=== PATIENT | female | born 1945 | race Caucasian/White ===

== ENCOUNTER → 2016-10-27 | Outpatient (CLI) | payer MEDICARE, OTHER ==
--- NOTE | 2016-10-27 14:31 | MM ---
Reason for exam: clinical finding. History: Patient is postmenopausal. Physical Findings: Nurse Summary: 2cm nodule in the left breast at 3 o'clock (nurse rodriguez). MG 3D Diag Mammo W/Cad NYASIA Bilateral CC and MLO view(s) were taken. The breast tissue is heterogeneously dense. This may lower the sensitivity of mammography. Nodular asymmetry lateral left breast at a middle depth seen in the upper outer quadrant on the true lateral. Large area of tissue distortion 3 o'clock anterior left breast. Asymmetric density lateral subareolar right breast. This does not persist on MLO or lateral view suggesting an island of prominent tissue. These results were verbally communicated with the patient and result sheet given to the patient on 10/27/16. ASSESSMENT: Incomplete: need additional imaging evaluation, BI-RAD 0 RECOMMENDATION: Ultrasound of both breasts.
--- NOTE | 2016-10-27 14:42 | USB ---
Reason for exam: additional evaluation requested from abnormal screening. History: Patient is postmenopausal. US Breast BILAT Left breast ultrasound includes all four quadrants, the retroareolar region and axilla. Finding demonstrates a 2.3 x 2.0 x 2.7cm oval, solid, vascular lesion at 2 o'clock axilla, there is a large fatty hilum and thin cortex, given that it is enlarged, this can be reassessed at the time of biopsy for any suspicious features, a 1.5 x 1.6 x 1.9cm spiculated, irregular, solid, hypoechoic, vascular , shadowing lesion at 3 o'clock for which a biopsy is recommended, a 0.6 x 0.5 x 0.6cm oval, solid lesion at 2 o'clock for which a biopsy is recommended and a 0.7 x 0.6 x 0.9cm oval, solid node at 2 o'clock. Right breast ultrasound includes all four quadrants, the retroareolar region and axilla. Finding demonstrates no cystic or solid lesion seen. These results were verbally communicated with the patient and result sheet given to the patient on 10/27/16. ASSESSMENT: Highly suggestive of malignancy, BI-RAD 5 RECOMMENDATION: Surgical consultation and ultrasound core biopsy of the left breast. (2 sites-- 2 o'clock and 3 o'clock and also with reassessment of the axillary node at the time of biopsy) Called Dr. Galvan with mammographic findings and has scheduled an appointment for the patient for 11/16/16 at 9:[address] Prado. PRELIMINARY REPORT CALLED AND FAXED TO DR. PRADO ON 10/27/16 AT 300/TP. MTDD
== END | disposition home or self-care (01) ==
LOC: RADMAMWWP 08:46
PROVIDERS: ATTEND Internal Medicine
DX: N63 Unspecified lump in breast (principal); N64.4 Mastodynia
CPT/HCPCS: 76641; G0204; G0279

== ENCOUNTER → 2016-11-03 | Day surgery (SDC) | payer MEDICARE, OTHER ==
[~2016-11-03] MED LIST: ALPRAZolam 0.25 MG TAB ONE; BACITRACIN OINT 1 EACH PACKET TOPICAL ONE; LIDOCAINE 1% INJ 10MG/ML (20 ML MDV) ONE; LIDOCAINE 1%-EPI 1:100,000 20 ML VIAL ONE; SODIUM BICARB 4% 5 ML VIAL (0.48 MEQ/ML) ONE
--- NOTE | 2016-11-04 09:18 | MM ---
Reason for exam: additional evaluation requested from abnormal screening. Last mammogram was performed less than 1 month ago. History: Patient is postmenopausal. MG Diagnostic Mammo LT Wo CAD XCCL and ML view(s) were taken of the left breast. Prior study comparison: October 27, 2016, bilateral MG 3d diag mammo w/cad NYASIA. ASSESSMENT: Post procedure mammogram for marker placement RECOMMENDATION: Ultrasound of the left breast in 6 months. PENDING PATHOLOGY RESULTS.
--- NOTE | 2016-11-09 13:04 | USB ---
US Biopsy Breast Add'l VAD LT Radiologist: Bryant Reza M.D. Radiologis EXAMINATION TYPE: US biopsy breast VAD LT, US biopsy breast add'l VAD LT, US biopsy breast add'l VAD LT, MG 3D diag mammo w/cad NYASIA DATE OF EXAM: 11/03/2016 1:51 PM CLINICAL HISTORY: R92.8 ABN MAMMOGRAM. TECHNIQUE: Ultrasound guided core biopsy of left breast at 3 sites including the left 3:00, 2:00 positions and 1:00 axilla. COMPARISON: NONE FINDINGS: The procedure of ultrasound guided core biopsy was explained to the patient. Benefits, alternatives, and risks were discussed. An informed consent was then obtained. The patient was placed in supine positioning for imaging and for the procedure. The overlying skin was prepped and draped in usual sterile fashion. Lidocaine buffered with bicarbonate was used as anesthetic into the skin and subcutaneous tissue up to areas of concern in the left breast. 2 skin Where made with surgical scalpel. Under ultrasound guidance, a 12-gauge vacuum assisted biopsy gun device was used to obtain 4 core samples from each site. Subsequently a clip was deployed in each lesion and verification mammography demonstrates appropriate deployment. The patient tolerated the procedure well without any immediate complication. The patient was kept in the radiology department for short stay after the procedure and then discharged home in stable condition. IMPRESSION: Successful, uncomplicated 3 site ultrasound core biopsy left breast with pathology results pending. Pathology Results: Malignant A. 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 FEATURE SUSPICIOUS FOR FOCAL LOBULAR NEOPLASIA (ALH/LCIS). SEE SURGICAL PATHOLOGY CANCER CASE SUMMARY AND COMMENT. B. BREAST, LEFT, TWO O'CLOCK, CORE BIOPSY: INVASIVE DUCTAL CARCINOMA WITH MUCINOUS FEATURES. SEE SURGICAL PATHOLOGY CANCER CASE SUMMARY AND COMMENT. C. BREAST, LEFT, ONE O'CLOCK, CORE BIOPSY: INVASIVE DUCTAL CARCINOMA WITH MUCINOUS FEATURES. BENIGN LYMPH NODE TISSUE. SEE SURGICAL PATHOLOGY CANCER CASE SUMMARY AND COMMENT. RECOMMENDATION: Surgical consultation of the left breast. ISIAHD
== END ==
LOC: RADUSWWP 11:21
PROVIDERS: ATTEND Surgery
DX: C50.412 Malignant neoplasm of upper-outer quadrant of left female breast (principal); R92.8 Other abnormal and inconclusive findings on diagnostic imaging of breast
CPT/HCPCS: 88305; 88342; 88341; 19083; 19084; G0206; A4648; J2001

== ENCOUNTER → 2016-11-18 | Outpatient (CLI) | payer MEDICARE, OTHER | END | disposition home or self-care (01) | LOC: LABWHC1 15:13 | PROVIDERS: ATTEND Surgery | DX: C50.919 Malignant neoplasm of unspecified site of unspecified female breast (principal) | CPT/HCPCS: 36415; 82565 ==

== ENCOUNTER → 2016-11-20 | Outpatient (CLI) | payer MEDICARE, OTHER ==
--- NOTE | 2016-12-03 09:38 | BMR ---
EXAMINATION TYPE: MR breast BILAT wo/w con DATE OF EXAM: 11/20/2016 10:09 AM HISTORY: Newly diagnosed left-sided breast cancer on biopsy October 2016. Pathology is invasive ductal carcinoma with mucinous features . CONTRAST: Multiplanar, multisequence images of the breasts were acquired utilizing 15 mL intravenous MultiHance gadolinium contrast. TECHNIQUE: A series of fat and water weighted images in the long and short axis views of both breasts are obtained in conjunction with dynamic contrast MRI with subtraction technique. Three-dimensional and additional postprocessing imaging is created on independent workstation and reviewed during offi [facility] interpretation of this study. Dynamic images were spatially registered using the [employer] Cadst ream software package, and dynamic curves and parametric images were evaluated. REFERENCE: 3-D bilateral breast mammogram October 27, 2016 BI-RADS 0. Left breast bilateral ultrasound October 27, [address] cap November 24, 2016. Nuclear medicine whole body bone scan November 24, 2016 FINDINGS: Exam is performed in consultation with outside dedicated breast MRI radiologists with inter nal and external postprocessing performed and reviewed. There is heterogeneously dense fibroglandular tissue centrally noted throughout both breasts and mode rate background enhancement with some asymmetry most pronounced medially in the left breast. Coronal STIR sequence demonstrates abnormal oval well-circumscribed heterogeneous enhancing lesion pr obable left axillary level one lymph node measuring 3 cm. (Image 24 series 41), 1:00 level approximat leelee 15 cm from the nipple. Axial T2 sequence demonstrates no cysts or focal fluid collections. Non fat saturated T1 sequence demonstrates no fat containing lesions. There are three areas of susceptibility artifact in the lateral left breast at the sites of biopsy an teriorly. There is also an additional area of susceptibility artifact at in the abnormal left axillar y level one node. Delayed post contrast sequence demonstrates no internal mammary lymphadenopathy. Regarding the right breast: There is segmental distribution suspicious non mass enhancement centered at the 8:00 position anteriorly and measuring 4.7 x 1.0 x 2.0 cm. Internal enhancement is heterogeneo us. Kinetic assessment demonstrates fast initial enhancement followed by plateau in the delayed porti ons of the curve. Regarding the left breast: At the 3:00 position, subareolar and lateral breast position, there is an irregular mass with irregular margins measuring 5.0 x 2.4 x 3.1 cm. Kinetic assessment demonstrates f ast initial enhancement followed by washout in the delayed portions of the curve. The mass invades th e nipple areolar complex. Mass demonstrates T2 hyperintensity. Associated findings include nipple ret raction. No suspicious skin thickening is seen bilaterally. No chest wall invasion is identified. Small to moderate size hiatal hernia is incidentally noted. IMPRESSION: Known malignancy identified in the 3:00 position left breast as described in the body of the report. Associated findings include areolar and nipple invasion. Biopsy-proven left axillary adenopathy. Suspicious non mass enhancement in the right breast. Recommendations: Appropriate action betaken of the known left breast malignancy and known adenopathy. MR guided biopsy of the non mass enhancement in the 8:00 position of the right breast. BI-RADS category 4 right breast. BI-RADS category 6 left breast.
== END | disposition home or self-care (01) ==
LOC: RADMRIMAIN 08:03
PROVIDERS: ATTEND Surgery
DX: C50.912 Malignant neoplasm of unspecified site of left female breast (principal)
CPT/HCPCS: 0159T; C8908; A9577; 77059

== ENCOUNTER → 2016-11-24 | Outpatient (CLI) | payer MEDICARE, OTHER ==
--- NOTE | 2016-11-24 14:24 | CT ---
EXAMINATION TYPE: CT ChestAbdPelvis w con DATE OF EXAM: 11/24/2016 2:04 PM COMPARISON: Correlation ultrasound breast biopsy 11/03/2016. HISTORY: 71-year-old female with a biopsy-proven left breast CA observation, suspicious for mets TECHNIQUE: Contiguous axial scanning of the chest, abdomen, and pelvis performed with IV Contrast, pa tient injected with 80 mL of Visipaque 320. Delayed images through the kidneys were obtained. Coronal /sagittal reconstructions performed. CT DLP: 1810 mGycm Automated exposure control for dose reduction was used. FINDINGS: CHEST: Patient's left breast cancer is evident with a large irregular heterogeneous mass spanning up to 3.8 cm laterally in the left breast and a 2.8 cm lymph node mass in the left axilla which was also biopsi ed. Heart is normal size without pericardial effusion. No coronary vessel calcifications are present. Conventional arch vessel branching anatomy with mild atherosclerotic arch calcifications. No other thoracic lymphadenopathy by CT size criteria. There is mild dependent atelectasis posteriorl y in the lungs. Pulmonary nodules are as follows: - 2 mm pulmonary nodule peripheral right upper lobe axial image 18. - A 7 mm ovoid pulmonary nodule posterior right midlung axial image 24, possibly low density. - Tiny 2 mm pulmonary nodule peripheral right midlung axial image 30. - 4 mm subpleural pulmonary nodule peripheral right lower lobe axial image 31. - 3 mm inferior lingular pulmonary nodule axial image 38. 2 mm pulmonary nodule along the superior as pect of the major fissure on the left axial image 22. There is very mild emphysematous change. Strandy atelectasis or scarring in both lung bases. No conso lidation or pleural effusion. ABDOMEN: Small hiatal hernia. No focal liver lesion. No biliary ductal dilatation. Portal venous system is patent. Gallbladder, right adrenal gland, right kidney, spleen with anterior splenule, and pancreas appear wi thin normal limits. There is mild diffuse thickening of the left adrenal gland without discrete nodul arity. Additionally, there is a tiny subcentimeter hypodensity posterior lower pole left kidney too s mall for accurate CT characterization, probable cyst. No dilated small bowel, free fluid, or free air. Scattered nonenlarged mesenteric lymph nodes are pre sent. Tiny fatty umbilical hernia. Oral contrast has progressed to the rectum. There is mild diverticulosis at the junction of the sigmo id and descending colon. No pericolonic inflammatory change. Mild atherosclerotic calcifications within the abdominal aorta and iliac arteries. Pelvis: Bladder is urine distended. Uterus surgically absent. Neither ovary is seen and likely also surgicall y absent. No abnormal fluid collection in the pelvis or pelvic lymphadenopathy. Bones: Mild degenerative changes at the hips. Left paracentral disc osteophyte complex at L3-L4. Mild degen erative disc disease mid to lower thoracic spine. No osseous destructive process. IMPRESSION: 1. PATIENT'S KNOWN LEFT BREAST CANCER (3.8 CM) AND METASTATIC LEFT AXILLARY SAMMIE MASS (2.8 CM). 2. THERE ARE SCATTERED PULMONARY NODULES WHICH ARE NONSPECIFIC. THE LARGEST MEASURES 7 MM AND MAY BE HYPODENSE MAKING IT SOMEWHAT LESS SUSPICIOUS. THESE SHOULD BE REASSESSED AT FOLLOW-UP. 3. OTHERWISE, NO OTHER SPECIFIC FINDINGS OF METASTATIC DISEASE. 4. MILD EMPHYSEMA, SMALL HIATAL HERNIA, TINY FATTY UMBILICAL HERNIA, AND MILD DIVERTICULOSIS ON THE L EFT.
--- NOTE | 2016-11-24 17:42 | NM ---
EXAMINATION TYPE: NM bone scan whole body DATE OF EXAM: 11/24/2016 3:22 PM COMPARISON: CT chest abdomen pelvis same date HISTORY: Breast cancer, C 50.812, Z03.89 Delayed whole-body scanning was performed following the injection of 25.4 mCi Tc 99m MDP. Images acq uired 3 hours post injection. FINDINGS: Uptake within the knees, wrists, shoulders, sternoclavicular joints and spine is likely degenerative. Soft tissue uptake is normal. IMPRESSION: No abnormal uptake to suggest metastasis.
== END | disposition home or self-care (01) ==
LOC: RADNMMAIN 11:08
PROVIDERS: ATTEND Internal Medicine Hematology & Oncology
DX: C50.912 Malignant neoplasm of unspecified site of left female breast (principal); R91.8 Other nonspecific abnormal finding of lung field; J43.9 Emphysema, unspecified; K44.9 Diaphragmatic hernia without obstruction or gangrene; K42.9 Umbilical hernia without obstruction or gangrene; K57.30 Diverticulosis of large intestine without perforation or abscess without bleeding
CPT/HCPCS: 82565; 84520; 71260; 74177; 36415; 78306; A9503; Q9967

== ENCOUNTER → 2016-12-09 | Outpatient (CLI) | payer MEDICARE, OTHER ==
--- NOTE | 2016-12-09 14:21 | BD ---
EXAMINATION TYPE: MG DEXA axial skeleton. DATE OF EXAM: 12/09/2016 8:43 AM COMPARISON: NONE CLINICAL HISTORY: post menopausal Height: 5' Weight: 160 FRAX RISK QUESTIONS: Alcohol (3 or more units per day): no Family History (Parent hip fracture): no Glucocorticoids (More than 3mos): no (Ex: prednisone, prednisolone, methylprednisolone, dexamethasone, and hydrocortisone). History of Fracture in Adulthood: no Secondary Osteoporosis: 1. Type 1 Diabetes: maybe unsure which type 2. Hyperthyroidism: no 3. Menopause before 45: no 4. Malnutrition: no 5. Chronic liver disease: no Rheumatoid Arthritis: no Current Tobacco Use: no RISK FACTORS HISTORY OF: History of Wrist Fracture: left When: age 60's Other Fractures since Age 50: When: age 60's Family History of Osteoporosis: no Smoke tobacco: no Drink Alcohol: no Active: no Diet low in dairy products/other sources of calcium: no Postmenopausal woman: yes Frequent falls: Poor Health: MEDICATIONS: Additional Medications: lipitor,rhntaline,tmlodipine,valsahan,aspirirn, loratine,levothyroxine,al-chidi olam Additional History: thyroid meds EXAM MEASUREMENTS: Bone mineral densitometry was performed using the [employer] System. Bone mineral density as measured about the Lumbar spine is: ----- L1-L4(G/cm2): 0.955 T Score Values are as follows: ----- L2: -1.9 ----- L3: -1.5 ----- L4: -2.5 ----- L1-L4: -1.9 Bone mineral density the R hip (g/cm2): 0.708 Bone mineral density about the L hip (g/cm2): 0.744 T Score values are as follows: -----R Neck: -2.4 -----L Neck: -2.1 -----R Total: -1.0 -----L Total: -1.6 IMPRESSION: Osteopenia (T Score between -2.5 and -1 as noted by T score values: L1-L4, Mukul Hips There is slightly increased risk of fracture and the patient may be considered for treatment. Re-Screen 2-5 years. NOTE: T-SCORE=SD OF THE YOUNG ADULT MEAN.
== END | disposition home or self-care (01) ==
LOC: RADBDWWP 08:17
PROVIDERS: ATTEND Internal Medicine Hematology & Oncology
DX: M85.852 Other specified disorders of bone density and structure, left thigh (principal); M85.851 Other specified disorders of bone density and structure, right thigh; C50.812 Malignant neoplasm of overlapping sites of left female breast; Z79.890 Hormone replacement therapy
CPT/HCPCS: 77080

== ENCOUNTER → 2017-01-03 | Day surgery (SDC) | payer MEDICARE, OTHER ==
[2017-01-03 10:17] VITALS: RESP 16; TEMP 98.5; BMI 31.6
[2017-01-03 10:47] VITALS: BP 160/90; PULSE 88
--- NOTE | 2017-01-03 11:14 | USB ---
EXAMINATION TYPE: US biopsy breast VAD RT, MG diagnostic mammo RT wo CAD DATE OF EXAM: 01/03/2017 CLINICAL HISTORY: Z85.3 PERSONAL HX BREAST CA,R92.0 MICROCALCIFICATIONS. TECHNIQUE: Ultrasound guided core biopsy of right breast with clip placement and follow-up two-view mammogram. COMPARISON: Right breast ultrasound earlier today. CT cap November 24, 2016. MRI breast November 20, 2016. FINDINGS: The procedure of ultrasound guided core biopsy was explained to the patient. Benefits, alternatives, and risks were discussed. An informed consent was then obtained. The patient was placed in supine positioning for imaging and for the procedure. Preprocedure imaging shows vague subcentimeter hypodense area of vascularity near 8 to 9:00 position in right breast near the nipple believed to correspond to area of MRI concern. The overlying skin was prepped and draped in usual sterile fashion. Lidocaine was used as anesthetic into the skin and subcutaneous tissue. Lidocaine with epinephrine is used as anesthetic into the deeper tissue in the right breast. A jorge was made with surgical scalpel. Under ultrasound guidance, a 12-gauge vacuum assisted biopsy gun device was used to obtain 3 core samples. Following this, a biopsy clip was left in lesion. The patient tolerated the procedure well without any immediate complication. The patient was kept in the radiology department for short stay after the procedure and then discharged home in stable condition. Postprocedure mammogram shows successful deployment of clip. IMPRESSION: Successful, uncomplicated ultrasound guided core biopsy of area of concern in the right breast, full pathology results to follow. Low to intermediate index of suspicion noted at time of procedure. Vague area of nonmass enhancement anteriorly in right breast on MRI is not as convincing for malignancy versus opposite breast on CT and MRI. No suspicious enhancement is clearly seen on recent CT cap to correlate with MRI abnormality. No definitive ultrasound correlation. Likely if obtained benign results would proceed with oncologic treatment of biopsy-proven left breast malignancy and monitor right breast. 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 ATYPICAL LOBULAR HYPERPLASIA. Recommendation Surgical consult of the right breast. JONATHAN
--- NOTE | 2017-01-03 13:38 | USB ---
Reason for exam: additional evaluation requested from prior study. History: Patient is postmenopausal and has history of breast cancer at age 71. Malignant US biopsy breast VAD LT of the left breast, November 03, 2016. Malignant US biopsy breast add'l VAD LT of the left breast, November 03, 2016. Malignant US biopsy breast add'l VAD LT of the left breast, November 03, 2016. Physical Findings: Nurse Summary: 2.5cm nodule in the left breast at 3 o'clock, known cancer (nurse dw). US Breast RT Right breast ultrasound includes all four quadrants, the retroareolar region and axilla. Finding demonstrates a 0.9 x 0.9cm lobular, hypoechoic lesion at 8 o'clock, questionable asymmetric tissue versus true lesion, questionable correlates with MRI. These results were verbally communicated with the patient and result sheet given to the patient on 01/03/17. ASSESSMENT: Suspicious, BI-RAD 4 RECOMMENDATION: Ultrasound core biopsy of the right breast. Called with mammographic findings and has scheduled an appointment for the patient for 01/10/17 at 2:[address] Prado. Biopsy scheduled for 04/05/17 at 10:30. PRELIMINARY REPORT CALLED AND FAXED TO DR. PRADO ON 01/03/17 AT 300/TP.
== END ==
LOC: RADUSWWP 08:21
PROVIDERS: ATTEND Surgery
DX: D24.1 Benign neoplasm of right breast (principal); D05.11 Intraductal carcinoma in situ of right breast; N62 Hypertrophy of breast; Z85.3 Personal history of malignant neoplasm of breast
CPT/HCPCS: 88305; 88342; 88341; 19083; 76641; G0206; A4648; J2001

== ENCOUNTER → 2017-02-11 | Outpatient (CLI) | payer MEDICARE ==
--- NOTE | 2017-02-11 08:05 | USB ---
Reason for exam: clinical finding. History: Patient is postmenopausal and has history of breast cancer at age 71. Malignant US biopsy breast VAD RT of the right breast, January 03, 2017. Malignant US biopsy breast VAD LT of the left breast, November 03, 2016. Malignant US biopsy breast add'l VAD LT of the left breast, November 03, 2016. Malignant US biopsy breast add'l VAD LT of the left breast, November 03, 2016. Indicated problem(s): pain in both breasts. Palpable abnormality, nipple abnormality, and large axillary lymph nodes in the left breast. Physical Findings: Nurse did not find any significant physical abnormalities on exam. US Breast LT Left breast ultrasound includes all four quadrants, the retroareolar region and axilla. Finding demonstrates a 2.0 x 2.5 x 1.9cm solid, vascular lesion at 1 o'clock and a 2.1 x 1.9 x 1.8cm solid, vascular lesion at 3 o'clock. These results were verbally communicated with the patient and result sheet given to the patient on 02/11/17. ASSESSMENT: Highly suggestive of malignancy, BI-RAD 5 (multi focal malignancy) RECOMMENDATION: Surgical consultation of the left breast. Called with mammographic findings and has scheduled an appointment for the patient for 02/11/17 at 10:[address] Prado. PRELIMINARY REPORT CALLED AND FAXED TO DR. PRADO ON 02/11/17 at 8:05/TP.
== END | disposition home or self-care (01) ==
LOC: RADUSWWP 06:44
PROVIDERS: ATTEND Surgery
DX: Z08 Encounter for follow-up examination after completed treatment for malignant neoplasm (principal); Z85.3 Personal history of malignant neoplasm of breast

== ENCOUNTER → 2017-02-23 | Outpatient (CLI) | payer MEDICARE, OTHER ==
--- NOTE | 2017-02-23 12:16 | CT ---
EXAMINATION TYPE: CT chest w con DATE OF EXAM: 02/23/2017 COMPARISON: Prior CT chest 11/24/2016 HISTORY: Lung nodule, recent diagnosis of breast CA CT DLP: 242.3 mGycm Automated exposure control for dose reduction was used. CONTRAST: CT scan of the chest is performed with IV Contrast, patient injected with 100 mL of Omnipaque 300. FINDINGS: Left axillary enlarged lymph node is again noted, there is some associated calcifications, measurement is stable. Left-sided breast cancer again noted. LUNGS: The lung nodule seen on previous exam shows stable appearance, the nodule in the left lower lo be on axial image 33 is calcified. MEDIASTINUM: There are no greater than 1 cm hilar or mediastinal lymph nodes. There are coronary ar arely calcifications. No pericardial effusion is seen. AORTA: No additional significant abnormality is seen. OTHER: Liver shows low attenuation possibly due to hepatic steatosis or hepatocellular disease. Smal l hiatal hernia noted.. IMPRESSION: Stable findings. Left axillary adenopathy and left breast cancer. Findings may be relate d to old granulomatous disease within the lungs.
== END | disposition home or self-care (01) ==
LOC: RADCTMAIN 10:28
PROVIDERS: ATTEND Internal Medicine Hematology & Oncology
DX: C50.812 Malignant neoplasm of overlapping sites of left female breast (principal); R91.1 Solitary pulmonary nodule
CPT/HCPCS: 82565; 84520; 71260; 36415; Q9967

== ENCOUNTER 2017-03-11 07:06 | Inpatient (IN) | payer MEDICARE ==
[2017-03-08 13:38] VITALS: BMI 27.4
[~2017-03-11 07:06] MED LIST changes: -ALPRAZolam 0.25 MG TAB ONE; -BACITRACIN OINT 1 EACH PACKET TOPICAL ONE; +HEPARIN SODIUM,PORCINE 5,000 UNIT/ML 1 ML VIAL SQ ONE; +HYDROmorphone 1 MG/ML 1 ML SYRINGE IVP PRN; -LIDOCAINE 1% INJ 10MG/ML (20 ML MDV) ONE; -LIDOCAINE 1%-EPI 1:100,000 20 ML VIAL ONE; +ONDANSETRON 4 MG/2 ML VIAL IVP ONE; +Pre Op ABX Message 1 EACH MISC MISCELLANE ONE; -SODIUM BICARB 4% 5 ML VIAL (0.48 MEQ/ML) ONE
[2017-03-11] MEDS: LACTATED RINGERS 1,000 ML IV SCH (07:30)
[2017-03-11] MEDS ORDERED: LIDOCAINE 1% 20 ML VIAL (10MG/ML) FOR IV START INTRADERMA ONE (07:30)
[2017-03-11] MEDS ORDERED: ALPRAZolam 0.25 MG TAB PO ONE (07:39)
[2017-03-11 07:48] LABS: CH 32.6; CHCM 34.7; HCT 38.1 % (34.0-46.0); HDW 2.73; HGB 12.6 gm/dL (11.4-16.0); MCH 31.2 pg (25.0-35.0); MCHC 33.1 g/dL (31.0-37.0); MCV 94.4 fL (80.0-100.0); Mean Platelet Volume 7.9; RBC 4.03 m/uL (3.80-5.40); RDW 13.2 % (11.5-15.5); WBC 7.4 k/uL (3.8-10.6)
[2017-03-11 07:55] LABS: Potassium 4.3 mmol/L (3.5-5.1)
--- NOTE | 2017-03-11 08:51 | NM ---
EXAMINATION TYPE: NM sentinel node injection DATE OF EXAM: 03/11/2017 COMPARISON: NONE HISTORY: RIGHT BREAST CANCER TECHNIQUE AND FINDINGS: The procedure of sentinel lymph node injection was explained to the patient. The benefits, alternatives, and risks were discussed. An informed consent was then obtained. Overlying skin is cleaned with sterile alcohol. Lidocaine buffered with bicarbonate was used as anes thetic into the skin and subcutaneous tissue surrounding the nipple. Following this, 525 uCi Tc 99m Filtered Sulfur Colloid was injected into 4 equivalent doses at 12, 3, 6, and 9:00 position surroundi ng the right nipple intradermally. The injection sites were massaged by nuclear power reactor operator for 10 minutes after injection. T he patient tolerated the procedure well without any immediate complication. The patient was kept in the radiology department for short stay after the procedure and then taken to surgery for surgical pr ocedure what is presumed intraoperative gamma probe will be used for sentinel lymph node detection. IMPRESSION: Right breast radiotracer injection for sentinel node localization as above.
--- NOTE | 2017-03-11 08:51 | NM ---
EXAMINATION TYPE: NM sentinel node injection DATE OF EXAM: 03/11/2017 COMPARISON: NONE HISTORY: LEFT BREAST CANCER TECHNIQUE AND FINDINGS: The procedure of sentinel lymph node injection was explained to the patient. The benefits, alternatives, and risks were discussed. An informed consent was then obtained. Overlying skin is cleaned with sterile alcohol. Lidocaine buffered with bicarbonate was used as anes thetic into the skin and subcutaneous tissue surrounding the nipple. Following this, 545 uCi Tc 99m Filtered Sulfur Colloid was injected into 4 equivalent doses at 12, 3, 6, and 9:00 position surroundi ng the left nipple intradermally. The injection sites were massaged by nuclear officer for 10 minutes after injection. T he patient tolerated the procedure well without any immediate complication. The patient was kept in the radiology department for short stay after the procedure and then taken to surgery for surgical pr ocedure what is presumed intraoperative gamma probe will be used for sentinel lymph node detection. IMPRESSION: Left breast radiotracer injection for sentinel node localization as above.
[2017-03-11] MEDS ORDERED: HYDROmorphone (PF) 1 MG/ML ONE (10:17)
[2017-03-11] MEDS ORDERED: ePHEDrine SULFATE/0.9% NACL/PF 50 MG/5 ML SYRINGE IV ONE (10:17)
[2017-03-11] MEDS ORDERED: PHENYLEPHRINE-0.9% NACL SYG 1 MG/10 ML SYRINGE ONE (10:17)
[2017-03-11] MEDS ORDERED: MIDAZOLAM 2 MG/2 ML VIAL ONE (10:17)
[2017-03-11] MEDS ORDERED: fentaNYL (PF) 50 MCG/ML 2 ML AMP ONE (10:17)
[2017-03-11] MEDS ORDERED: LIDOCAINE 1% INJ 10MG/ML (20 ML MDV) ONE (10:17)
[2017-03-11] MEDS ORDERED: PROPOFOL 10 MG/ML 20 ML VIAL IV ONE (10:17)
[2017-03-11] MEDS ORDERED: GLYCOPYRROLATE 0.2 MG/ML 2 ML VIAL ONE (10:17)
[2017-03-11] MEDS ORDERED: SUCCINYLCHOLINE CHLORIDE 100 MG/5 ML SYR IV ONE (10:17)
[2017-03-11] MEDS ORDERED: METHYLENE BLUE 10 MG/ML 1 ML VIAL INJ ONE ×2 (10:35→11:11)
[2017-03-11] MEDS ORDERED: SODIUM CHLORIDE 0.9% 50 ML with ceFAZolin 2,000 MG IV ONE ×2 (14:39)
--- NOTE | 2017-03-11 15:41 | P.OP ---
Date of Procedure: 03/11/17 Preoperative Diagnosis: DCIS of right breast Invasive cancer of left breast with biopsy positive left axillary lymph nodes Dementia Hypothyroidism Postoperative Diagnosis: Same Procedure(s) Performed: Left modified radical mastectomy Right simple mastectomy and sentinel lymph node bx Implants: NA Anesthesia: DANIEA Surgeon: Anuradha Prado Pathology: other Condition: stable Disposition: PACU Indications for Procedure: 71 years old female with dementia and hypothyroidism presents with biopsy- proven right breast DCIS and left breast invasive cancer with positive lymph nodes. Informed consent obtained and patient elected to undergo bilateral mastectomy with right sentinel lymph node biopsy and left axillary lymph node dissection Operative Findings: Right simple mastectomy with sentinel lymph node biopsy performed There were large lymph nodes in the left axilla and hence no sentinel lymph node biopsy performed and proceeded with axillary lymph node dissection Description of Procedure: The patient underwent injection of radioisotope in the radiology department of both breasts She was brought to the operating room and placed in supine position with both arms out. 5 mL of methylene blue was injected in the subdermal plane at 4 quadrants around both areola and the breast was massaged for 5 minutes . General anesthesia with endotracheal intubation was performed as per anesthesia team. No muscle relaxants were given. Chlorhexidine was used to prep the right breast and right axilla taking care not to dislodge the wire exiting from the left breast. Sterile drapes were applied. A timeout was performed to verify correct patient and correct procedure. Patient was confirmed to receive perioperative IV antibiotics, heparin 5000 units subcutaneous injection for the VTE prophylaxis and bilateral SCDs were placed. Attention was focused on right side first. A hand-held gamma probe was used to detect signals overlying the breast. Radioisotope signal was obtained in the axilla. An elliptical incision was made incorporating the nipple area complex. The superior flap was raised up to the clavicle, medially up to the lateral border of the sternum, inferiorly to the inferior mammary fold and laterally to the lateral border of the pectoralis major and minor muscle. The breast tissue was lifted off the pectoralis major fascia. The bleeding perforators were ligated using hand-held LigaSure device. Right simple mastectomy performed and specimen sent to pathology. After entering the clavicopectoral fascia, a blue node was identified. This node was located deep in the axillary bed. The gamma probe was placed in contact with the node with high counts recorded. The node was excised in its entirety. [place] lymph node was negative for malignancy. A ADARSH drain was left in the axilla and brought out through a separate stab incision. The resulting incision was closed in 2 layers using interrupted sutures of 2-0 Vicryl, running sutures of 3-0 Quill. Attention was then focused on the left breast. The superior flap was raised up to the clavicle, medially up to the lateral border of the sternum, inferiorly to the inferior mammary fold and laterally to the lateral border of the pectoralis major and minor muscle. The breast tissue was lifted off the pectoralis major fascia. The bleeding perforators were ligated using hand-held LigaSure device. Left simple mastectomy performed and specimen sent to pathology. Large left axillary lymph nodes were palpated and hence decision to proceed with left axillary lymph node dissection. The axillary skin incision was extended from the lateral edge of the pectoralis major muscle to the anterior edge of the latissimus dorsi muscle. Flaps were raised cephalad and caudad to the estimated level of the axillary vein superiorly and the edge of the pectoralis major medially using electrocautery. The clavicopectoral fascia was then incised along the edge of the pectoralis major and the pectoralis major and minor were freed from the surrounding fat and sirena tissue. Dissection progressed first under pectoralis major and then under the pectoralis minor muscle. The pectoralis muscles were retracted medially with a Carrillo retractor. The medial pectoral neurovascular bundle was identified and preserved. The level II sirena tissue deep to the pectoralis minor was included in the dissection. The axillary vein was also identified and cleared of overlying fat. The first branch off the axillary vein was clamped, divided and tied with 2-0 silk ties. Thoracodorsal nerve was then identified deep to the ligated vein and preserved the long thoracic nerve was identified along the edge of the latissimus dorsi on the chest wall and preserved. The remaining sirena tissue between these nerves was then carefully removed, taking care to protect the nerves. The specimen was then sent to pathology. The cavity was irrigated with normal saline. Two flat ADARSH drain were left in the axilla and was brought out through separate stab incisions . The resulting cavity was checked for hemostasis. The resulting incision was closed in 2 layers using interrupted sutures of 2-0 Vicryl, running sutures of 3-0 Quill. Dermabond was applied. Sponge, instrument and needle count were correct 2. Patient tolerated the procedure well and was taken to postanesthesia care unit in stable condition
[2017-03-11] MEDS ORDERED: ACETAMINOPHEN IV (For NPO) 1,000 MG/100 ML VIAL IVPB ONE (15:46)
[2017-03-11] MEDS: HYDROmorphone 1 MG/ML 1 ML SYRINGE IVP SCH ×2 (16:44→23:44)
[2017-03-11] MEDS: HEPARIN SODIUM,PORCINE 5,000 UNIT/ML 1 ML VIAL SQ SCH (17:04)
[2017-03-11] MEDS: ACETAMINOPHEN IV (For NPO) 1,000 MG in EMPTY BAG 1 BAG IVPB SCH (20:37)
[2017-03-12] MEDS: HYDROmorphone 1 MG/ML 1 ML SYRINGE IVP SCH ×3 (01:12→07:29)
[2017-03-12] MEDS: HEPARIN SODIUM,PORCINE 5,000 UNIT/ML 1 ML VIAL SQ SCH ×3 (01:12→16:08)
[2017-03-12] MEDS: ACETAMINOPHEN IV (For NPO) 1,000 MG in EMPTY BAG 1 BAG IVPB SCH ×2 (02:39→08:23)
[2017-03-12] MEDS: LACTATED RINGERS 1,000 ML IV SCH (05:43)
[2017-03-12 08:25] LABS: Basophils % (A) 0 %; CH 32.1; CHCM 34.1; Eosinophils % (A) 0 %; HCT 34.8 % (34.0-46.0); HDW 2.71; HGB 11.3 gm/dL (11.4-16.0); Luc # (Auto) 0.09; Luc % (Auto) 1; Lymphocytes # (A) 1.3 k/uL (1.0-4.8); Lymphocytes % (A) 8 %; MCH 30.7 pg (25.0-35.0); MCHC 32.4 g/dL (31.0-37.0); MCV 94.8 fL (80.0-100.0); Mean Platelet Volume 8.6; Monocytes # (A) 0.6 k/uL (0-1.0); Monocytes % (A) 3 %; Neutrophils % (A) 89 %; RBC 3.67 m/uL (3.80-5.40); RDW 13.4 % (11.5-15.5); WBC (Perox) 17.85
[2017-03-12 08:38] LABS: Calcium 9.5 mg/dL (8.4-10.2); Potassium 4.8 mmol/L (3.5-5.1); Total Bilirubin 0.2 mg/dL (0.2-1.3); Total Protein 5.7 g/dL (6.3-8.2)
[2017-03-12] MEDS ORDERED: HYDROmorphone 1 MG/ML 1 ML SYRINGE IVP PRN (11:02)
[2017-03-12] MEDS: HYDROcodone/APAP 5-325MG 1 EACH TAB PO PRN ×3 (11:14→21:52)
[2017-03-12 11:57] LABS: Appearance,Urine Clear (Clear); Bilirubin,Urine Negative (Negative); Glucose,Urine (UA) Negative (Negative); Ketones,Urine Negative (Negative); Leukocyte Esterase,Urine Moderate (Negative); Mucus,Urine Rare /hpf; Nitrite,Urine Negative (Negative); Particle Count 837; Protein,Urine Negative (Negative); RBC,Urine 2 /hpf (0-5); Specific Gravity,Urine 1.005 (1.001-1.035); Squamous Epithelial Cell,Urine <1 /hpf (0-4); UA Billing (MACRO vs. MICRO) MICRO; Urobilinogen,Urine <2.0 mg/dL (<2.0); WBC,Urine 4 /hpf (0-5)
--- NOTE | 2017-03-12 13:16 | P.PN ---
Subjective Principal diagnosis: Bilateral breast cancer POD#1 S/P right simple mastectomy with SLN Bx and left modified radiacl mastectomy. Pain well conrolled. Tolerating diet. No new complaints. Objective - Vital Signs Vital signs: Vital Signs Temp 97.0 F L 03/12/17 07:00 Pulse 54 L 03/12/17 07:00 Resp 16 03/12/17 07:00 BP 126/75 03/12/17 07:00 Pulse Ox 98 03/12/17 07:00 Intake & Output 03/11/17 03/12/17 03/12/17 18:59 06:59 18:59 Intake Total 1450 900 180 Output Total 425 510 960 Balance 1025 390 -780 Weight 68.039 kg Intake: IV 1450 Intake, IV Titration 100 Amount ACETAMINOPHEN IV (For NPO 100 ) 1,000 mg In Empty Bag 1 bag @ 400 mls/hr IVPB Q6H [facility] Rx#:[id number] Oral 800 180 Output: Drainage 110 60 Left Lower Chest 60 30 Right Chest 50 30 Urine 325 400 900 Uretheral (Sanchez) 900 Estimated Blood Loss 100 Other: Voiding Method Indwelling Catheter Indwelling Catheter - Exam DRessings - C/D/I ADARSH - serosanguinous - Labs CBC & Chem 7: 03/12/17 08:08 03/12/17 08:08 Labs: Abnormal Lab Results - Last 24 Hours (Table) 03/12/17 03/12/17 03/12/17 Range/Units 08:08 08:08 11:30 WBC 17.0 H (3.8-10.6) k/uL RBC 3.67 L (3.80-5.40) m/uL Hgb 11.3 L (11.4-16.0) gm/dL Neutrophils # 15.0 H (1.3-7.7) k/uL BUN 19 H (7-17) mg/dL Creatinine 1.20 H (0.52-1.04) mg/dL Glucose 124 H (74-99) mg/dL Total Protein 5.7 L (6.3-8.2) g/dL Albumin 3.3 L (3.5-5.0) g/dL Ur Leukocyte Esterase Moderate H (Negative) Urine Mucus Rare H (None) /hpf Assessment and Plan (1) Breast cancer Status: Acute Plan: 1. Remove dressing in am 2. ADARSH alexander teachings 3. IS use 4. Consult social media job titles regarding discharge planning to rehab in next 24 hrs
[2017-03-12] MEDS ORDERED: ALPRAZolam 0.5 MG TAB PO PRN (19:26)
[2017-03-12] MEDS: FAMOTIDINE 20 MG TAB PO SCH (21:53)
[2017-03-12] MEDS: ATORVASTATIN 10 MG TAB PO SCH (21:53)
[2017-03-13] MEDS: HEPARIN SODIUM,PORCINE 5,000 UNIT/ML 1 ML VIAL SQ SCH ×3 (00:56→16:14)
[2017-03-13] MEDS: HYDROcodone/APAP 5-325MG 1 EACH TAB PO PRN ×3 (01:13→22:36)
[2017-03-13] MEDS: LACTATED RINGERS 1,000 ML IV SCH (06:57)
[2017-03-13] MEDS: LEVOTHYROXINE 125 MCG TAB PO SCH (06:58)
[2017-03-13 08:02] LABS: Glucose,Whole Blood 108 mg/dL (75-99)
[2017-03-13] MEDS ORDERED: IPRATROPIUM-ALBUTEROL 3 ML NEB INHALATION PRN (08:26)
--- NOTE | 2017-03-13 08:36 | XR ---
EXAMINATION TYPE: XR chest 1V portable DATE OF EXAM: 03/13/2017 COMPARISON: 03/04/2015 HISTORY: Shortness of breath TECHNIQUE: Single frontal view of the chest is obtained. FINDINGS: Catheters overlying the chest are seen. There is no pneumothorax or consolidation. Underly ing COPD suspected. No pleural effusion. Minimal linear changes at the left lung base. IMPRESSION: 1. Left basilar atelectasis favored over infiltrate correlate clinically.
[2017-03-13 08:42] LABS: Basophils % (A) 0 %; CH 31.4; CHCM 33.9; Eosinophils # (A) 0.2 k/uL (0-0.7); Eosinophils % (A) 2 %; HCT 33.3 % (34.0-46.0); HDW 2.75; HGB 11.4 gm/dL (11.4-16.0); Luc # (Auto) 0.17; Luc % (Auto) 2; Lymphocytes # (A) 2.5 k/uL (1.0-4.8); Lymphocytes % (A) 23 %; MCH 31.9 pg (25.0-35.0); MCHC 34.3 g/dL (31.0-37.0); MCV 92.9 fL (80.0-100.0); Mean Platelet Volume 7.3; Monocytes # (A) 0.4 k/uL (0-1.0); Monocytes % (A) 3 %; Neutrophils # (A) 7.7 k/uL (1.3-7.7); Neutrophils % (A) 70 %; RBC 3.58 m/uL (3.80-5.40); WBC 11.1 k/uL (3.8-10.6); WBC (Perox) 11.49
[2017-03-13] MEDS: HYDROCHLOROTHIAZIDE 25 MG TAB PO SCH (08:52)
[2017-03-13] MEDS: amLODIPine 10 MG TAB PO SCH (08:52)
[2017-03-13] MEDS: FAMOTIDINE 20 MG TAB PO SCH ×2 (08:52→22:30)
[2017-03-13] MEDS: hydrALAZINE HCL 25 MG TAB PO SCH (08:52)
[2017-03-13] MEDS: LISINOPRIL 20 MG TAB PO SCH (08:52)
[2017-03-13] MEDS: ANASTROZOLE 1 MG TAB PO SCH (08:52)
[2017-03-13] MEDS: VALSARTAN 160 MG TAB PO SCH (08:53)
[2017-03-13] MEDS ORDERED: ALPRAZolam 0.25 MG TAB PO PRN (11:12)
[2017-03-13] MEDS: IPRATROPIUM-ALBUTEROL 3 ML NEB INHALATION SCH ×3 (11:26→20:41)
--- NOTE | 2017-03-13 11:31 | P.PN ---
Subjective Principal diagnosis: Bilateral breast cancer POD#2 S/P right simple mastectomy with SLN Bx and left modified radiacl mastectomy. Pain well controlled. Tolerating diet. Episode of SOB and hyperventilation. Objective - Vital Signs Vital signs: Vital Signs Temp 97.7 F 03/13/17 07:00 Pulse 59 L 03/13/17 11:28 Resp 18 03/13/17 07:00 BP 145/99 03/13/17 08:34 Pulse Ox 98 03/13/17 09:14 Intake & Output 03/12/17 03/13/17 03/13/17 18:59 06:59 18:59 Intake Total 670 2120 Output Total 1000 540 Balance -330 1580 Intake: Intake, IV Titration 320 Amount Lactated Ringers 1,000 ml 320 @ 20 mls/hr IV .Q24H [facility] Rx#:[id number] Oral 670 1800 Output: Drainage 100 140 Left Lower Chest 50 40 Right Chest 50 100 Urine 900 400 Uretheral (Sanchez) 900 Other: Voiding Method Indwelling Catheter Toilet Toilet # Voids 1 3 - Exam DRessings - C/D/I ADARSH - serosanguinous Using IS upto 1200 Calm and cooperative during my exam - Labs CBC & Chem 7: 03/13/17 08:16 03/12/17 08:08 Labs: Abnormal Lab Results - Last 24 Hours (Table) 03/12/17 03/13/17 03/13/17 Range/Units 11:30 07:59 08:16 WBC 11.1 H (3.8-10.6) k/uL RBC 3.58 L (3.80-5.40) m/uL Hct 33.3 L (34.0-46.0) % POC Glucose (mg/dL) 108 H (75-99) mg/dL Ur Leukocyte Esterase Moderate H (Negative) Urine Mucus Rare H (None) /hpf Assessment and Plan (1) Breast cancer Status: Acute Plan: 1. Remove dressing in am 2. ADARSH drain care teachings 3. IS use 4. Consult social work instructor regarding discharge planning to rehab in next 24 hrs 5. xanak for prn anxiety
[2017-03-13 12:19] LABS: Potassium 4.2 mmol/L (3.5-5.1)
--- NOTE | 2017-03-13 14:12 | CONS ---
DATE OF SERVICE: 03/12/2017 REASON FOR CONSULTATION: Advise regarding hypertension, hyperlipidemia, multiple medical issues; requested by Dr. Prado. HISTORY OF PRESENT ILLNESS: This 71-year-old woman with the past medical history of asthma, history of hypertension, hyperlipidemia, memory impairment, anxiety and depression; being followed by Dr. Galvan in the outpatient setting. Admitted with bilateral mastectomy. There is no history of any fevers. No history of headache, loss of consciousness or seizures. PAST MEDICAL HISTORY: History of asthma, history of hypertension, hyperlipidemia, history of syncope. MEDICATIONS PRIOR TO ADMISSION: 1. Hydralazine 25 mg p.o. 2. Loratan 10 mg p.o. q.d. 3. Demadex 1 mg p.o. 4. Amlodipine. 6. Hydrochlorothiazide 300/25 p.o. daily. 7. Zantac 150 mg b.i.d. 8. Synthroid 125 mcg p.o. daily. 9. Lipitor 10 mg. 10. Senokot. 11. Xanax p.r.n. 12. [place] 5 mg q6 p.r.n. 13. Colace 100 mg p.o. b.i.d. ALLERGIES: None. FAMILY HISTORY: History of cancer, CVA, TIA, diabetes mellitus in the family. SOCIAL H ISTORY: Patient used to smoke. No history of current smoking or alcohol intake. REVIEW OF SYSTEMS: ENT: No diminished hearing or vision. CARDIOVASCULAR: No angina or palpitation. RESPIRATORY: As mentioned earlier. GI: No nausea. : No dysuria. NERVOUS SYSTEM: No numbness or weakness. IMMUNOLOGY/ALLERGY: No asthma, hayfever. MUSCULOSKELETAL: As mentioned earlier. HEMATOLOGY: No history of anemia. ENDOCRINE: No history of diabetes or hypothyroidism. CONSTITUTIONAL: As mentioned earlier. PSYCHIATRIC: As mentioned earlier. PHYSICAL EXAMINATION: Alert and oriented x3. Pulse 69, blood pressure 130/48, respirations 17, temperature 98.8, pulse ox 90% on room air. HEENT: Conjunctivae normal. Oral mucosa moist. NECK: No jugular venous distention. No thyroid enlargement, no lymph node enlargement. CARDIOVASCULAR: S1/.S2. RESPIRATIONS: Diminished breath sounds at the bases. A few scattered rhonchi. No crackles. ABDOMEN: Soft, nontender. No mass palpable. LEGS: No edema, no swelling. NERVOUS SYSTEM: Higher function as mentioned. Moves all four limbs. No focal weakness. LYMPHATICS. No lymph node palpable in neck or axillae. SKIN: No rash. Examination of the chest shows a bilateral mastectomy. LABS: WBC 17. Other labs noted. ASSESSMENT: 1. Status post bilateral mastectomy. 2. Increased WBC. 3. Anemia. 4. Increased creatinine. 5. History of asthma. 6. Hypertension. 7. Hyperlipidemia. 8. History of anxiety and depression. RECOMMENDATIONS AND DISCUSSION: Continue current medication, continue to monitor, continue symptomatic treatment. Otherwise, at this time I would recommend continuing with the hydration, DVT prophylaxis, resume the home medications. The patient is p.o. Otherwise, continue to monitor. Medication consultation was done. Thank you, Dr. Prado, for letting us participate in the care of this patient and the patient may be asked to follow with Dr. Galvan after discharge. ZUCKER HILLSIDE HOSPITALOscar
--- NOTE | 2017-03-13 18:43 | PN ---
DATE OF SERVICE: 03/13/17 CHIEF COMPLAINT: Shortness of breath. This 71 -year-old woman who was admitted after mastectomy had respiratory difficulty this morning. A-team was called. The patient also gives history of being on home O2 previously [place] the [place]. Currently after breathing treatment, the patient is feeling much better. Chest x-ray showed some atelectasis. Past medical history reviewed. REVIEW OF SYSTEMS: Cardiovascular: As mentioned earlier. Respiratory: As mentioned earlier. GI: No nausea or vomiting. : No dysuria. No urine retention. Current medications are reviewed and include: 1. [place] 5 mg q4h prn. 2. DuoNeb q.i.d. and prn. 3. Xanax 0.5 daily. 4. Norvasc 10 mg daily. 6. Lipitor. 7. Symbicort 80/4.5 b.i.d. 9. Apresoline. 11. Lactated Ringers. 12. Synthroid. 13. Zestril. 14. Diovan. PHYSICAL EXAMINATION: The patient is alert and oriented times three. Pulse 57. Blood pressure 134/67. Respiratory rate 18. Temperature 97.7. Pulse ox 100% on room air. HEENT: Conjunctivae normal. Neck: No JVD. CARDIOVASCULAR: S1, S2 muffled. Respiratory: Breath sounds diminished at the bases. A few scattered rhonchi and crackles. Abdomen soft. Nontender. No mass palpable. LEGS: No edema. No swelling. PRACTICAL NURSE: No focal deficits. Examination of the chest, status post surgery. LABS: WBC 11.1, creatinine 1.30. ASSESSMENT: 1. Status post bilateral mastectomy. 2. Chronic obstructive pulmonary disease. 3. Increased WBC. 4. Anemia. 5. Increased creatinine. 6. History of asthma. 7. Hypertension. 8. History of hyperlipidemia. 9. History of anxiety, depression. RECOMMENDATIONS: Continue current medications. Continue symptomatic treatment. Continue bronchodilators. Continue the rest of the medications. Recommend to monitor labs in the outpatient setting. White count has improved at this time. See orders for further details. Closely follow with surgery. Rest of the recommendations per surgery. MTDD
[2017-03-13] MEDS: SYMBICORT 80-4.5 MCG INHALER INHALATION SCH (20:41)
[2017-03-13] MEDS: ATORVASTATIN 10 MG TAB PO SCH (22:31)
[2017-03-14] MEDS: HEPARIN SODIUM,PORCINE 5,000 UNIT/ML 1 ML VIAL SQ SCH ×3 (00:47→17:05)
[2017-03-14] MEDS: SYMBICORT 80-4.5 MCG INHALER INHALATION SCH ×2 (07:33→21:22)
[2017-03-14] MEDS: IPRATROPIUM-ALBUTEROL 3 ML NEB INHALATION SCH ×4 (07:44→21:20)
[2017-03-14] MEDS: VALSARTAN 160 MG TAB PO SCH (09:17)
[2017-03-14] MEDS: FAMOTIDINE 20 MG TAB PO SCH (09:17)
[2017-03-14] MEDS: LEVOTHYROXINE 125 MCG TAB PO SCH (09:17)
[2017-03-14] MEDS: hydrALAZINE HCL 25 MG TAB PO SCH (09:18)
[2017-03-14] MEDS: amLODIPine 10 MG TAB PO SCH (09:18)
[2017-03-14] MEDS: ANASTROZOLE 1 MG TAB PO SCH (09:18)
[2017-03-14] MEDS: LISINOPRIL 20 MG TAB PO SCH (09:18)
--- NOTE | 2017-03-14 09:47 | P.PN ---
Subjective 71-year-old female being seen on rounds this morning. Events noted during the night. Patient per nursing staff reportedly was telling nursing that she was feeling overwhelmingly depressed felt like she had nothing to live for had a bottle of pills felt like she could take them and let God take care of things" when questioning patient about the events patient stated I just feel very depressed wouldn't hurt myself. Patient states she's never been treated for depression. Patient states she has never been admitted to the mental health unit and has not been treated from mental illness in the past. Patients being followed by surgical service is postop day 3 right simple mastectomy with SLN biopsy and a left modified radical mastectomy. Currently dressing to the surgical site dry with 2 ADARSH drains in the left and one in the right Patient currently is resting in bed easily teary-eyed stating feeling depressed and overwhelmed Objective - Vital Signs Vital signs: Vital Signs Temp 97.3 F L 03/14/17 07:00 Pulse 68 03/14/17 07:47 Resp 18 03/14/17 07:00 BP 118/64 03/14/17 07:00 Pulse Ox 94 L 03/14/17 07:34 Intake & Output 03/13/17 03/14/17 03/14/17 18:59 06:59 18:59 Intake Total 2400 Output Total 430 Balance 1970 Intake: Oral 2400 Output: Drainage 80 Left Lower Chest 50 Right Chest 30 Urine 350 Other: Voiding Method Toilet Toilet # Voids 1 2 - Exam Physical exam 71-year-old female resting in bed appears in no acute distress denying chest pain dizziness or lightheadedness does "feel depressed feel sad" cooperative Chest dressings to surgical site bilaterally dry with 2 ADARSH drains in the left monitoring the right ADARSH drain on the left put out 80 mL the last 8 hours the right ADARSH drain 50 mL Lungs essentially clear adequate air movement bilaterally on room air Heart S1-S2 audible regular denying chest pain telemetry sinus rhythm no ectopy Abdomen soft nontender no document nausea vomiting Extremities no edema noted - Labs CBC & Chem 7: 03/13/17 08:16 03/13/17 08:16 Labs: Abnormal Lab Results - Last 24 Hours (Table) 03/13/17 Range/Units 08:16 Chloride 110 H (98-107) mmol/L Carbon Dioxide 21 L (22-30) mmol/L BUN 22 H (7-17) mg/dL Creatinine 1.30 H (0.52-1.04) mg/dL Assessment and Plan Plan: Impression Status post right simple mastectomy with SLN biopsy and a left modified radical mastectomy for bilateral breast cancer Depressive disorder nonspecified Hypertension essential Hyperlipidemia Memory impairment 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 Jeanna Glynn nurse practitioner acting as scribe for signing physician.
[2017-03-14] MEDS: HYDROcodone/APAP 5-325MG 1 EACH TAB PO PRN (10:36)
[2017-03-14] MEDS: HYDROCHLOROTHIAZIDE 25 MG TAB PO SCH (18:20)
[2017-03-14] MEDS: FLUoxetine HCL 20 MG CAP PO SCH (18:24)
[2017-03-14] MEDS: LACTATED RINGERS 1,000 ML IV SCH (20:11)
[2017-03-14] MEDS: ATORVASTATIN 10 MG TAB PO SCH (20:13)
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
[2017-03-15] MEDS: HYDROcodone/APAP 5-325MG 1 EACH TAB PO PRN ×3 (00:57→23:18)
[2017-03-15] MEDS: HEPARIN SODIUM,PORCINE 5,000 UNIT/ML 1 ML VIAL SQ SCH ×4 (00:58→23:17)
--- NOTE | 2017-03-15 07:29 | PN ---
DATE OF SERVICE: 03/14/2017 This 71-year-old woman was admitted with shortness of breath after surgery and COPD. Patient is mildly confused and had some suicidal ideation also. Psychiatric evaluation in progress. No chest pain, no palpitation, no fever. On exam, alert and oriented x2. Pulse 66, blood pressure 107/51, respirations 16, temperature 98.2, pulse ox 97% on room air. HEENT: Conjunctivae normal. NECK: No jugular venous distension. CARDIOVASCULAR SYSTEM: S1, S2, muffled. RESPIRATORY: Breath sounds diminished at the bases. Scattered rhonchi, no crackles. ABDOMEN: Soft, nontender, no mass palpable. LEGS: No edema, no swelling. NERVOUS SYSTEM: Higher functions as mentioned earlier, moves all 4 limbs. LYMPHATICS: No lymph node enlargement. SKIN: No ulcer, rash, bleeding. Labs are at this time WBC is 11.1, hemoglobin 11.4. ASSESSMENT: 1. Status post bilateral mastectomy. 2. History of chronic obstructive pulmonary disease. 3. Increased WBC. 4. Anemia. 5. Increased creatinine. 6. History of asthma. 7. Hypertension. 8. Hyperlipidemia. 9. History of anxiety, depression. RECOMMENDATION: Recommend to continue with the current medication and symptomatic treatment. Continue with the bronchodilators. Monitor labs closely. Psychiatric evaluation, guarded prognosis. Further recommendations to follow. MTDD
[2017-03-15] MEDS: LEVOTHYROXINE 125 MCG TAB PO SCH (09:01)
[2017-03-15] MEDS: amLODIPine 10 MG TAB PO SCH (09:03)
[2017-03-15] MEDS: LISINOPRIL 20 MG TAB PO SCH (09:03)
[2017-03-15] MEDS: VALSARTAN 160 MG TAB PO SCH (09:05)
[2017-03-15] MEDS: HYDROCHLOROTHIAZIDE 25 MG TAB PO SCH (09:06)
[2017-03-15] MEDS: ANASTROZOLE 1 MG TAB PO SCH (09:09)
[2017-03-15] MEDS: FAMOTIDINE 20 MG TAB PO SCH (09:10)
[2017-03-15] MEDS: FLUoxetine HCL 20 MG CAP PO SCH (09:10)
[2017-03-15] MEDS: hydrALAZINE HCL 25 MG TAB PO SCH (09:35)
--- NOTE | 2017-03-15 09:55 | P.PN ---
Subjective 71-year-old female being seen on rounds this morning. Patient's pleasant cooperative oriented 3. Patient states "feels less depressed this morning. Discharge plan and progress. Did note that the patient was seen by the psychiatrist on March 14 for an evaluation of depression recommendations were noted and appreciated. They recommended starting the patient on Prozac 20 mg daily. From their perspective the [facility] There were no new postop events noted postop day 4 right simple mastectomy with SLN biopsy and a left modified radical mastectomy. Currently dressing to the surgical site dry with 2 ADARSH drains in the left and one in the right Objective - Vital Signs Vital signs: Vital Signs Temp 97.8 F 03/15/17 04:21 Pulse 73 03/15/17 04:21 Resp 16 03/15/17 04:21 BP 101/62 03/15/17 04:21 Pulse Ox 97 03/15/17 04:21 Intake & Output 03/14/17 03/15/17 03/15/17 18:59 06:59 18:59 Intake Total 850 2080 237 Output Total 510 1980 Balance 340 100 237 Weight 68.039 kg 68.039 kg Intake: Oral 850 2080 237 Output: Drainage 160 80 Left Chest 30 Left Lower Chest 100 0 Right Chest 60 50 Urine 350 1900 Other: Voiding Method Toilet Toilet # Voids 4 2 - Exam Physical exam 71-year-old female resting in bed pleasant cooperative no new events Chest dressings to surgical site bilaterally dry with [address] to on the left and one on the right Lungs essentially clear adequate air movement bilaterally on room air Heart S1-S2 audible regular denying chest pain telemetry sinus rhythm no ectopy Abdomen soft nontender no document nausea vomiting Extremities no edema noted - Labs CBC & Chem 7: 03/13/17 08:16 03/13/17 08:16 Labs: Abnormal Lab Results - Last 24 Hours (Table) 03/13/17 Range/Units 08:16 TSH 16.500 H (0.465-4.680) mIU/L Assessment and Plan Plan: Impression Status post right simple mastectomy with SLN biopsy and a left modified radical mastectomy for bilateral breast cancer Depressive disorder nonspecified Hypertension essential Hyperlipidemia Memory impairment suspect due to a prior CVA Anxiety disorder nonspecified Major depressive disorder Plan Continue recommendations by psych service Prozac 20 mg daily 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 Jeanna Glynn nurse practitioner acting as scribe for signing physician.
[2017-03-15] MEDS: IPRATROPIUM-ALBUTEROL 3 ML NEB INHALATION SCH ×4 (12:13→20:10)
[2017-03-15] MEDS: SYMBICORT 80-4.5 MCG INHALER INHALATION SCH ×2 (12:13→20:10)
--- NOTE | 2017-03-15 13:14 | P.PN ---
Subjective Patient was admitted for bilateral mastectomy,, patient is clinically doing well except for some minimal depression. Patient was a valid by psychiatric. And the patient will be discharged today and medication reconciliation was done. And multiple changes were made to her anti-happens medications. Patient denied any abdominal pain, chest pain, nausea, vomiting. Objective - Vital Signs Vital signs: Vital Signs Temp 98.0 F 03/15/17 11:26 Pulse 76 03/15/17 12:22 Resp 16 03/15/17 11:26 BP 134/71 03/15/17 11:26 Pulse Ox 97 03/15/17 12:10 Intake & Output 03/14/17 03/15/17 03/15/17 18:59 06:59 18:59 Intake Total 850 2080 237 Output Total 510 1980 80 Balance 340 100 157 Weight 68.039 kg 68.039 kg Intake: Oral 850 2080 237 Output: Drainage 160 80 80 Left Chest 30 0 Left Lower Chest 100 0 50 Right Chest 60 50 30 Urine 350 1900 Other: Voiding Method Toilet Toilet # Voids 4 2 2 - Exam PHYSICAL EXAMINATION: GENERAL: The patient is alert and oriented x3, not in any acute distress. Well developed, well nourished. HEENT: Pupils are round and equally reacting to light. EOMI. No scleral icterus. No conjunctival pallor. Normocephalic, atraumatic. No pharyngeal erythema. No thyromegaly. CARDIOVASCULAR: S1 and S2 present. No murmurs, rubs, or gallops. PULMONARY: Chest is clear to auscultation, no wheezing or crackles. Patient is status post bilateral mastectomy and patient has drains bilaterally. ABDOMEN: Soft, nontender, nondistended, normoactive bowel sounds. No palpable organomegaly. MUSCULOSKELETAL: No joint swelling or deformity. EXTREMITIES: No cyanosis, clubbing, or pedal edema. NEUROLOGICAL: Gross neurological examination did not reveal any focal deficits. SKIN: No rashes. - Labs CBC & Chem 7: 03/13/17 08:16 03/13/17 08:16 Labs: Abnormal Lab Results - Last 24 Hours (Table) 03/13/17 Range/Units 08:16 TSH 16.500 H (0.465-4.680) mIU/L Assessment and Plan Plan: #1 hypertension: Multiple changes were made to her and if his medications apart. Prescriptions are provided. #2 depression: Without any suicidal ideations patient was started on fluoxetine expected to have symptomatically improvement in about 6-8 weeks. #3 COPD without any acute exacerbation patient can continue her albuterol. We' ll give her a prescription for Symbicort. #4 leukocytosis reactive response without any signs or symptoms of infection. #5 hyperlipidemia. Patient is medically stable enough to be discharged. Patient will benefit from home care. Patient related to follow with PCP in about a week.
[2017-03-15] MEDS: LACTATED RINGERS 1,000 ML IV SCH (19:20)
[2017-03-15] MEDS: ATORVASTATIN 10 MG TAB PO SCH (20:42)
[2017-03-16] MEDS: HYDROcodone/APAP 5-325MG 1 EACH TAB PO PRN (03:12)
[2017-03-16] MEDS: LACTATED RINGERS 1,000 ML IV SCH (05:13)
[2017-03-16] MEDS: LEVOTHYROXINE 125 MCG TAB PO SCH (06:07)
[2017-03-16 06:56] VITALS: BP 142/67; PULSE 60; RESP 16; TEMP 97.6
[2017-03-16] MEDS: IPRATROPIUM-ALBUTEROL 3 ML NEB INHALATION SCH ×2 (08:11→11:15)
[2017-03-16] MEDS: SYMBICORT 80-4.5 MCG INHALER INHALATION SCH (08:11)
[2017-03-16] MEDS ORDERED: ONDANSETRON 4 MG/2 ML VIAL IVP PRN (08:13)
[2017-03-16] MEDS: HEPARIN SODIUM,PORCINE 5,000 UNIT/ML 1 ML VIAL SQ SCH (10:00)
[2017-03-16] MEDS: FLUoxetine HCL 20 MG CAP PO SCH (10:00)
[2017-03-16] MEDS: ANASTROZOLE 1 MG TAB PO SCH (10:00)
[2017-03-16] MEDS: FAMOTIDINE 20 MG TAB PO SCH (10:00)
[2017-03-16] MEDS: amLODIPine 10 MG TAB PO SCH (10:00)
[2017-03-16] MEDS: hydrALAZINE HCL 25 MG TAB PO SCH (10:00)
[2017-03-16] MEDS: LISINOPRIL 20 MG TAB PO SCH (10:01)
[2017-03-16] MEDS: HYDROCHLOROTHIAZIDE 25 MG TAB PO SCH (10:01)
[2017-03-16] MEDS: VALSARTAN 160 MG TAB PO SCH (10:01)
[2017-03-16] MEDS ORDERED: DOCUSATE 100 MG CAP PO SCH (10:15)
--- NOTE | 2017-03-16 10:58 | CDI ---
In responding to this query, please exercise your independent professional judgment. The [facility] Coding Staff and Clinical Documentation Specialists appreciate your assistance in clarifying documentation, maintaining compliance with coding guidelines, accurately documenting patients condition and capturing severity of illness. The fact that a question is asked does not imply that any particular answer is desired or expected. Communication forms are a method of clarifying documentation and are not made part of the Legal Health Record. Thank you in advance for your clarification. Last Revision, May 2015 Maddison Godoy [address] [place] [address] Documentation Clarification Form Date: 03/16/2017 10:31:00 AM From: Linda Padilla RN, CCDS Admit Date: 03/14/2017 10:53:00 AM Patient Name: Kenia Adams Visit Number: [id number] Dr. Zakiya William History/Risk Factors: Bilateral breast cancer, HTN, Hyperlipidemia, Clinical Indicators: 03/15 Attending Progress Note: "Patient does have chronic kidney disease from probable hypertensive nephrosclerosis." Current BUN: CR: 1.2/1.3 GFR: 44/40 11/18/16 Patients Baseline: BUN/CR/GFR: Bun was not done, Creatinine 1.37, GFR 38 Treatment: Patients medications include: Apresoline 25 mg PO QD, Hydroduiril 25mg PO QD, Diovan 320 mg PO QD IVF: LR at 20 cc/hr In order to capture the severity of condition, please clarify if the condition signifies: CKD Stage 1 (GFR > 90) CKD Stage 2 (GFR 60-89) CKD Stage 3 (GFR 30-59) CKD Stage 4 (GFR 15-29) CKD Stage 5 (GFR <15) ESRD Unable to determine Other condition, please specify Please document in your progress notes and discharge summary in order to capture severity of illness and risk of mortality. Include clinical findings that support your diagnosis. FYI: Press F11 to launch patient chart. Place X here if this finding has no clinical significance, is not applicable or if you are not able to provide any additional documentation. JONATHAN
--- NOTE | 2017-03-16 11:42 | P.DS ---
Providers Date of admission: 03/14/17 10:53 Expected date of discharge: 03/16/17 Attending physician: Anuradha Prado Consults: 03/11/17 15:39 Consult Physician Routine Consulting Provider: Brie Carrero Consult Reason/Comments: medical management Do you want consulting provider notified?: Yes 03/13/17 22:56 Consult Physician Routine Consulting Provider: Mg Cortez Consult Reason/Comments: Client expresses suicidal thoughts. Do you want consulting provider notified?: Yes Primary care physician: Mandy Roland [facility] Hospital Course: 71-year-old female admitted on March 11 to undergo a left modified radical mastectomy, right simple mastectomy and sentinel lymph node biopsy for bilateral breast cancer [address] B[address]Sep[address] 2 on the left 1 on the right. The mental health case manager did pursue the discharge plan. Patient does live alone in assisted living. Patient does get confused at times and has difficult time making decisions due to her confusion. She has a niece who is her guardian. It was felt that the patient would be best suited given the bilateral mastectomies could recover as a short stay at a rehab center. Postop the patient did develop major depressive episode a psychiatrist was requested. Diagnosed patient with a major depressive disorder. [place] that the patient was likely experiencing acute distress issues relating to the adjustment due to her mastectomies which did have a significant impact that she struggles with self esteem. Probably has issues of posttraumatic stress disorder but probably relates to a mood disorder. They did initiate Prozac 20 mg daily as well as admission initiated this admission. Over the course of hospitalization clinically continued to improve and on March 16 was felt to be appropriate to transfer tomorrow with for subacute rehab Impression discharge diagnosis Status post right simple mastectomy with SLN biopsy and a left modified radical mastectomy for bilateral breast cancer Depressive disorder nonspecified Hypertension essential Hyperlipidemia Memory impairment suspect due to a prior CVA Anxiety disorder Major depressive disorder single episode suicidal ideation resolved Chronic kidney disease stage III The above impression and plan of care have been discussed and directed by signing physician. Jeanna Glynn nurse practitioner acting as scribe for signing physician. Plan - Discharge Summary New Discharge Prescriptions: New Docusate [Colace] 100 mg PO BID #30 capsule Hydrocodone/Acetaminophen [Leadore 5-325] 1 each PO Q6HR PRN #20 tab PRN Reason: Pain amLODIPine [Norvasc] 5 mg PO DAILY #30 tab FLUoxetine HCL [PROzac] 20 mg PO DAILY #30 cap Albuterol Inhaler [Ventolin Hfa Inhaler] 1 - 2 puff INHALATION Q6HR PRN #1 inhaler PRN Reason: Shortness Of Breath Or Wheezing Budesonide-Formot 160-4.5 Mcg [Symbicort 160-4.5 Mcg Inhaler] 2 puff INHALATION BID #1 inhaler Continue Ranitidine HCl [Zantac] 150 mg PO BID Levothyroxine Sodium [Synthroid] 125 mcg PO DAILY #30 tablet Atorvastatin [Lipitor] 10 mg PO HS Valsartan/Hydrochlorothiazide [Valsartan-Hctz 320-25 mg Tab] 1 tab PO DAILY Aspirin EC [Ecotrin Low Dose] 81 mg PO DAILY Loratadine 10 mg PO DAILY Anastrozole [Arimidex] 1 mg PO DAILY Discontinued amLODIPine BESYLATE/BENAZEPRIL [amLODIPine BESYLATE/BENAZEPRIL 10-20 mg] 1 cap PO DAILY ALPRAZolam [Xanax] 0.5 mg PO DAILY PRN PRN Reason: Anxiety hydrALAZINE HCL [Hydralazine HCl] 25 mg PO DAILY Discharge Medication List Ranitidine HCl [Zantac] 150 mg PO BID 06/04/14 [History] Levothyroxine Sodium [Synthroid] 125 mcg PO DAILY #30 tablet 03/05/15 [Rx] Aspirin EC [Ecotrin Low Dose] 81 mg PO DAILY 01/03/17 [History] Atorvastatin [Lipitor] 10 mg PO HS 01/03/17 [History] Valsartan/Hydrochlorothiazide [Valsartan-Hctz 320-25 mg Tab] 1 tab PO DAILY [History] Anastrozole [Arimidex] 1 mg PO DAILY 03/08/17 [History] Loratadine 10 mg PO DAILY 03/08/17 [History] Docusate [Colace] 100 mg PO BID #30 capsule 03/12/17 [Rx] Hydrocodone/Acetaminophen [Leadore 5-325] 1 each PO Q6HR PRN #20 tab 03/12/17 [Rx] Albuterol Inhaler [Ventolin Hfa Inhaler] 1 - 2 puff INHALATION Q6HR PRN #1 inhaler 03/15/17 [Rx] Budesonide-Formot 160-4.5 Mcg [Symbicort 160-4.5 Mcg Inhaler] 2 puff INHALATION BID #1 inhaler 03/15/17 [Rx] FLUoxetine HCL [PROzac] 20 mg PO DAILY #30 cap 03/15/17 [Rx] amLODIPine [Norvasc] 5 mg PO DAILY #30 tab 03/15/17 [Rx] Follow up Appointment(s)/Referral(s): Anuradha Prado MD [STAFF PHYSICIAN] - 03/29/17 1:20 pm Activity/Diet/Wound Care/Special Instructions: Strip ADARSH daily and record daily output. Ok to take sponge bath. OK to walk and use stairs Discharge Disposition: TRANSFER TO SNF/ECF
--- NOTE | 2017-03-17 12:57 | P.PN ---
Subjective Progress note being dictated for Dr. William. Hospital course:Patient was admitted for bilateral mastectomy,, patient is clinically doing well except for some minimal depression. Patient was a valid by psychiatric. And the patient will be discharged today and medication reconciliation was done. And multiple changes were made to her anti-happens medications. Patient denied any abdominal pain, chest pain, nausea, vomiting. 03/16/17 doing well, afebrile. Surgical specimen pathology pending. Pain controlled. Fair diet intake. Maintained on Prozac as per psychiatry. Denies chest pain, palpitations or increasing shortness of breath. Objective - Vital Signs Vital signs: Vital Signs Temp 97.6 F 03/16/17 06:54 Pulse 60 03/16/17 11:24 Resp 16 03/16/17 08:00 BP 142/67 03/16/17 06:54 Pulse Ox 98 03/16/17 06:54 Intake & Output 03/15/17 03/16/17 03/16/17 18:59 06:59 18:59 Intake Total 1024 500 Output Total 760 13 Balance 264 487 Weight 68.039 kg 68.039 kg Intake: Oral 1024 500 Output: Drainage 160 13 Left Chest 0 8 Left Lower Chest 100 0 Right Chest 60 5 Urine 600 Other: Voiding Method Toilet Toilet # Voids 3 1 - Exam GENERAL: Patient is alert and oriented x3, no acute distress. Well developed, well nourished. Sitting up at side of bed. HEENT: Pupils are round and equally reacting to light. EOMI. No scleral icterus. No conjunctival pallor. Normocephalic, atraumatic. No pharyngeal erythema. No thyromegaly. CARDIOVASCULAR: S1 and S2 present. No murmurs, rubs, or gallops. PULMONARY: Chest is clear to auscultation, no wheezing or crackles. Patient is status post bilateral mastectomy. ABDOMEN: Soft, nontender, nondistended, normoactive bowel sounds. No palpable organomegaly. MUSCULOSKELETAL: No joint swelling or deformity. EXTREMITIES: No cyanosis, clubbing, or pedal edema. NEUROLOGICAL: Gross neurological examination did not reveal any focal deficits. SKIN: No rashes. - Labs CBC & Chem 7: 03/13/17 08:16 03/13/17 08:16 Assessment and Plan Plan: #1 hypertension: Multiple changes were made to her and if his medications apart. Prescriptions are provided. #2 depression: Without any suicidal ideations patient was started on fluoxetine expected to have symptomatically improvement in about 6-8 weeks. #3 COPD without any acute exacerbation patient can continue her albuterol. We' ll give her a prescription for Symbicort. #4 leukocytosis reactive response without any signs or symptoms of infection. #5 hyperlipidemia. #6 acute on chronic renal failure, stage III #7 major depressive disorder Plan: Continue on current medication regime ,monitoring and symptomatic treatment. TSH 16.5, free T4 1.08; Levothyroxine dose increased by 25mcg. close monitoring of renal function with repeat labs at [facility], ordered. Pain management as per surgery. Patient is being discharged today to [facility] rehab as per surgery. Further recommendations to follow. The impression and plan of care has been dictated as directed as a scribe. : I performed a H&P examination of this patient and discussed the same with the dictator. I agree with the dictator's note. Any additional findings/opinions/ etc. will be noted.
== END 2017-03-16 13:01 | DRG 580 ==
LOC: EEVIPCON 07:06 → OR 07:06 → 3SUR 15:22 → OR 03-14 10:22 → 3SUR 03-14 10:53
PROVIDERS: ADMIT Surgery; ATTEND Surgery
PROC: 07T60ZZ Resection of Left Axillary Lymphatic, Open Approach (ICD-10-PCS; 2017-03-11)
PROC: 0HTU0ZZ Resection of Left Breast, Open Approach (ICD-10-PCS; principal; 2017-03-11 09:30)
PROC: 07B50ZX Excision of Right Axillary Lymphatic, Open Approach, Diagnostic (ICD-10-PCS; 2017-03-11 09:30)
PROC: 0HBT0ZZ Excision of Right Breast, Open Approach (ICD-10-PCS; 2017-03-11 09:30)
DX: C50.912 Malignant neoplasm of unspecified site of left female breast (principal); J98.11 Atelectasis; N17.9 Acute kidney failure, unspecified; R45.851 Suicidal ideations; F03.90 Unspecified dementia, unspecified severity, without behavioral disturbance, psychotic disturbance, mood disturbance, and anxiety; J44.9 Chronic obstructive pulmonary disease, unspecified; C50.911 Malignant neoplasm of unspecified site of right female breast; D64.9 Anemia, unspecified; I12.9 Hypertensive chronic kidney disease with stage 1 through stage 4 chronic kidney disease, or unspecified chronic kidney disease; F32.9 Major depressive disorder, single episode, unspecified; E03.9 Hypothyroidism, unspecified; E78.5 Hyperlipidemia, unspecified; F43.10 Post-traumatic stress disorder, unspecified; N18.3 Chronic kidney disease, stage 3 (moderate); R06.4 Hyperventilation; F41.9 Anxiety disorder, unspecified; F39 Unspecified mood [affective] disorder; D72.829 Elevated white blood cell count, unspecified; Z79.899 Other long term (current) drug therapy; Z79.82 Long term (current) use of aspirin; Z87.891 Personal history of nicotine dependence
CPT/HCPCS: 38792; 80048; 80051; 80053; 81001; 84439; 84443; 85025; 85027; 93005; 94640; 94760

== ENCOUNTER 2017-11-04 18:00 | Emergency (ER) | payer MEDICARE ==
[2017-11-04] MEDS ORDERED: SODIUM CHLORIDE 0.9% 1,000 ML IV STA (18:17)
[2017-11-04] MEDS ORDERED: ORPHENADRINE 30 MG/ML 2 ML VIAL IVP STA (18:17)
[2017-11-04] MEDS ORDERED: SODIUM CHLORIDE 0.9% 500 ML IV STA (18:17)
--- NOTE | 2017-11-04 18:18 | ED ---
General Adult HPI - General Chief complaint: Extremity Problem,Nontraumatic Stated complaint: S/p surgery complications Time Seen by Provider: 11/04/17 18:02 Source: patient, EMS, RN notes reviewed, old records reviewed Mode of arrival: EMS Limitations: no limitations - History of Present Illness Initial comments: This patient is a 72-year-old female presents emergency department from adult [facility] facility history of dementia and CVA chief complaint of increased pain over the left side of the neck into the left arm. She reports this is going on for 2 months. She states that this occurred for 2 months, right after her surgery. Upon review of her chart though she had a double mastectomy in February 2017, approximately 6 months ago. Patient does exhibit some dementia on questioning. Patient reports pain is worse with ROM. - Related Data Home Medications Medication Instructions Recorded Confirmed Ranitidine HCl [Zantac] 150 mg PO BID 06/04/14 11/04/17 Aspirin EC [Ecotrin Low Dose] 81 mg PO DAILY 01/03/17 11/04/17 Atorvastatin [Lipitor] 10 mg PO HS 01/03/17 11/04/17 Valsartan/Hydrochlorothiazide 1 tab PO DAILY 01/03/17 11/04/17 [Valsartan-Hctz 320-25 mg Tab] Anastrozole [Arimidex] 1 mg PO DAILY 11/04/17 11/04/17 Ergocalciferol [Vitamin D2] 50,000 unit PO GARCIA 11/04/17 11/04/17 FLUoxetine HCL [PROzac] 20 mg PO DAILY 11/04/17 11/04/17 Levothyroxine Sodium [Synthroid] 125 mcg PO DAILY 11/04/17 11/04/17 amLODIPine [Norvasc] 10 mg PO DAILY 11/04/17 11/04/17 Previous Rx's Medication Instructions Recorded Cyclobenzaprine [Flexeril] 5 mg PO TID #12 tablet 11/04/17 Allergies Allergy/AdvReac Type Severity Reaction Status Date / Time No Known Allergies Allergy Verified 11/04/17 18:09 Review of Systems ROS Statement: Those systems with pertinent positive or pertinent negative responses have been documented in the HPI. ROS Other: All systems not noted in ROS Statement are negative. Past Medical History Past Medical History: Asthma, Cancer, CVA/TIA, Eye Disorder, GERD/Reflux, Hearing Disorder / Deafness, Hyperlipidemia, Hypertension, Memory Impairment, Syncope, Thyroid Disorder Additional Past Medical History / Comment(s): syncope, constipation, DDD, [place] does'nt have hearing aides. [place] Breast Cancer, no radiation or chemotherapy; EDEMA LT ARM. Blind in left eye. CVA - C/O NUMBNESS LT SIDE, PAIN IN LT ARM, LT HIP. NOT TO USE LT ARM D/T PREV SURGERY. History of Any Multi-Drug Resistant Organisms: None Reported Past Surgical History: Hysterectomy, Joint Replacement Additional Past Surgical History / Comment(s): [place] knee replacment; Double mastectomy 03/13/17 Past Anesthesia/Blood Transfusion Reactions: No Reported Reaction Past Psychological History: Anxiety, Depression Smoking Status: Former smoker Past Alcohol Use History: None Reported Past Drug Use History: None Reported - Past Family History Father Family Medical History: Cancer, CVA/TIA, Diabetes Mellitus, Myocardial Infarction ([place]) Mother Family Medical History: Myocardial Infarction ([place]) General Exam - General Exam Comments Initial Comments: 72 year old female, shows signs of dementia on questioning. No acute distress. Limitations: no limitations General appearance: alert, in no apparent distress Head exam: Present: atraumatic, normocephalic, normal inspection Eye exam: Present: normal appearance, PERRL, EOMI. Absent: scleral icterus, conjunctival injection, periorbital swelling ENT exam: Present: normal exam, mucous membranes moist Neck exam: Present: normal inspection. Absent: tenderness, meningismus, lymphadenopathy Respiratory exam: Present: normal lung sounds bilaterally, chest wall tenderness (Left chest wall and shoulder tenderness on palpation. Pain is reproducible with ROM of shoulder. Incision sites of bilateral masectomy appear well. No eruthema or swelling. ), other. Absent: respiratory distress, wheezes , rales, rhonchi, stridor Cardiovascular Exam: Present: regular rate, normal rhythm, normal heart sounds. Absent: systolic murmur, diastolic murmur, rubs, gallop, clicks GI/Abdominal exam: Present: soft, normal bowel sounds. Absent: distended, tenderness, guarding, rebound, rigid Extremities exam: Present: normal inspection, full ROM, normal capillary refill. Absent: tenderness, pedal edema, joint swelling, calf tenderness Back exam: Present: normal inspection Neurological exam: Present: alert, oriented X3, CN II-XII intact Psychiatric exam: Present: normal affect, normal mood Skin exam: Present: warm, dry, intact, normal color. Absent: rash Course Vital Signs 11/04/17 11/04/17 11/04/17 18:06 18:17 19:09 Temperature 97.9 F Pulse Rate 67 64 Pulse Rate [ 67 Splicer Helper ] Respiratory 18 18 Rate Blood Pressure 159/70 O2 Sat by Pulse 97 99 Oximetry 11/04/17 11/04/17 20:15 21:35 Temperature 98.0 F Pulse Rate 71 71 Pulse Rate [ Splicer Helper ] Respiratory 16 18 Rate Blood Pressure 156/79 156/79 O2 Sat by Pulse 98 96 Oximetry - Reevaluation(s) Reevaluation #1: 11/04/17 20:59 Repeat EKG was performed and still shows normal sinus rhythm, ventricular rate 67 bpm. [place] interval 150 ms. QS duration 82. QTQTC's were 44/469. Nonspecific elevation or T-wave inversion. Patient reports that she is hungry. Given the same as prior she reports that she like to go home. Discussed that with all of her lab work was reviewed and normal most likely muscle skeletal issue. She has no signs of infection. And if this is cardiac issue to be some changes on her EKG to length of time of symptoms. Patient agrees. Will be discharged home. Medical Decision Making - Medical Decision Making This patient is a 72-year-old with history of dementia presents emergency department today with pain over the left chest wall pain are worse with range of motion. She reports she's been having this since her mastectomy. Her incision sites of her meniscectomies appear normal. Given the distribution of her pain we did a cardiac workup. Patient's troponin is normal. EKG is reviewed and normal. Chest x-ray is normal. Her abdominal x-ray was also reviewed and normal. She is complaining of some fullness in the abdomen but she denies any significant pain. All of her lab work was reviewed and normal. Discussed at this time with her pain be worsening she try anti-inflammatory medicine. Discussed following up with her primary care provider as well as return parameters were discussed. Will be discharged home to adult care facility. - Lab Data Result diagrams: 11/04/17 19:00 11/04/17 19:00 Lab Results 11/04/17 11/04/17 11/04/17 Range/Units 19:00 19:00 19:00 WBC 8.7 (3.8-10.6) k/uL RBC 3.89 (3.80-5.40) m/uL Hgb 11.5 (11.4-16.0) gm/dL Hct 33.8 L (34.0-46.0) % MCV 86.8 (80.0-100.0) fL MCH 29.6 (25.0-35.0) pg MCHC 34.1 (31.0-37.0) g/dL RDW 12.9 (11.5-15.5) % Plt Count 321 (150-450) k/uL Neutrophils % 66 % Lymphocytes % 21 % Monocytes % 6 % Eosinophils % 4 % Basophils % 1 % Neutrophils # 5.7 (1.3-7.7) k/uL Lymphocytes # 1.8 (1.0-4.8) k/uL Monocytes # 0.5 (0-1.0) k/uL Eosinophils # 0.3 (0-0.7) k/uL Basophils # 0.1 (0-0.2) k/uL PT (9.0-12.0) sec INR (<1.2) APTT (22.0-30.0) sec Sodium 140 (137-145) mmol/L Potassium 4.9 (3.5-5.1) mmol/L Chloride 104 (98-107) mmol/L Carbon Dioxide 22 (22-30) mmol/L Anion Gap 14 mmol/L BUN 33 H (7-17) mg/dL Creatinine 1.20 H (0.52-1.04) mg/dL Est GFR (CKD-EPI)AfAm 52 (>60 ml/min/1.73 sqM) Est GFR (CKD-EPI)NonAf 45 (>60 ml/min/1.73 sqM) Glucose 108 H (74-99) mg/dL Calcium 9.5 (8.4-10.2) mg/dL Magnesium 1.9 (1.6-2.3) mg/dL Total Bilirubin 0.4 (0.2-1.3) mg/dL AST 19 (14-36) U/L ALT 28 (9-52) U/L Alkaline Phosphatase 98 (38-126) U/L Total Creatine Kinase 178 H (30-135) U/L CK-MB (CK-2) 2.0 (0.0-2.4) ng/mL CK-MB (CK-2) Rel Index 1.1 Troponin I 0.012 (0.000-0.034) ng/mL NT-Pro-B Natriuret Pep pg/mL Total Protein 6.5 (6.3-8.2) g/dL Albumin 4.0 (3.5-5.0) g/dL Amylase 77 (30-110) U/L Lipase 183 (23-300) U/L Urine Color Urine Appearance (Clear) Urine pH (5.0-8.0) Ur Specific [place] (1.001-1.035) Urine Protein (Negative) Urine Glucose (UA) (Negative) Urine Ketones (Negative) Urine Blood (Negative) Urine Nitrite (Negative) Urine Bilirubin (Negative) Urine Urobilinogen (<2.0) mg/dL Ur Leukocyte Esterase (Negative) Urine RBC (0-5) /hpf Urine WBC (0-5) /hpf Ur Squamous Epith Cells (0-4) /hpf Urine Bacteria (None) /hpf 11/04/17 11/04/17 11/04/17 Range/Units 19:00 19:00 19:36 WBC (3.8-10.6) k/uL RBC (3.80-5.40) m/uL Hgb (11.4-16.0) gm/dL Hct (34.0-46.0) % MCV (80.0-100.0) fL MCH (25.0-35.0) pg MCHC (31.0-37.0) g/dL RDW (11.5-15.5) % Plt Count (150-450) k/uL Neutrophils % % Lymphocytes % % Monocytes % % Eosinophils % % Basophils % % Neutrophils # (1.3-7.7) k/uL Lymphocytes # (1.0-4.8) k/uL Monocytes # (0-1.0) k/uL Eosinophils # (0-0.7) k/uL Basophils # (0-0.2) k/uL PT 9.5 (9.0-12.0) sec INR 1.0 (<1.2) APTT 23.2 (22.0-30.0) sec Sodium (137-145) mmol/L Potassium (3.5-5.1) mmol/L Chloride (98-107) mmol/L Carbon Dioxide (22-30) mmol/L Anion Gap mmol/L BUN (7-17) mg/dL Creatinine (0.52-1.04) mg/dL Est GFR (CKD-EPI)AfAm (>60 ml/min/1.73 sqM) Est GFR (CKD-EPI)NonAf (>60 ml/min/1.73 sqM) Glucose (74-99) mg/dL Calcium (8.4-10.2) mg/dL Magnesium (1.6-2.3) mg/dL Total Bilirubin (0.2-1.3) mg/dL AST (14-36) U/L ALT (9-52) U/L Alkaline Phosphatase (38-126) U/L Total Creatine Kinase (30-135) U/L CK-MB (CK-2) (0.0-2.4) ng/mL CK-MB (CK-2) Rel Index Troponin I (0.000-0.034) ng/mL NT-Pro-B Natriuret Pep 137 pg/mL Total Protein (6.3-8.2) g/dL Albumin (3.5-5.0) g/dL Amylase (30-110) U/L Lipase (23-300) U/L Urine Color Light Yellow Urine Appearance Clear (Clear) Urine pH 5.5 (5.0-8.0) Ur Specific [place] 1.008 (1.001-1.035) Urine Protein Negative (Negative) Urine Glucose (UA) Negative (Negative) Urine Ketones Negative (Negative) Urine Blood Negative (Negative) Urine Nitrite Negative (Negative) Urine Bilirubin Negative (Negative) Urine Urobilinogen <2.0 (<2.0) mg/dL Ur Leukocyte Esterase Moderate H (Negative) Urine RBC <1 (0-5) /hpf Urine WBC 14 H (0-5) /hpf Ur Squamous Epith Cells <1 (0-4) /hpf Urine Bacteria Rare H (None) /hpf 11/04/17 18:45 EKG shows normal sinus rhythm, Ventricular rate of 63 bpmk. Pr interval 170 ms, qrs duration 78 ms, qt.atc 434/[address] elevation, no T wave inversion. - Radiology Data Radiology results: report reviewed Disposition Clinical Impression: Chest wall pain following surgery Disposition: HOME SELF-CARE Condition: Good Instructions: Costochondritis (ED), Shoulder Pain (ED) Additional Instructions: Patient is to rest, ice the area. Follow-up with your primary care provider in one to 2 days. Patient should take anti-inflammatory medication for discomfort. Return to the emergency department if any alarming signs or symptoms occur. Patient can also apply Pierre wraps to the arms. Prescriptions: Cyclobenzaprine [Flexeril] 5 mg PO TID #12 tablet Is patient prescribed a controlled substance at d/c from ED?: No If prescribed controlled substance>3 days was MAPS reviewed?: No When asked, does pt state using other controlled substances?: No Referrals: Nicole Galvan MD [Primary Care Provider] - 1-2 days Time of Disposition: 21:02
[2017-11-04 19:30] LABS: Basophils # (A) 0.1 k/uL (0-0.2); Basophils % (A) 1 %; Eosinophils # (A) 0.3 k/uL (0-0.7); Eosinophils % (A) 4 %; HCT 33.8 % (34.0-46.0); HGB 11.5 gm/dL (11.4-16.0); Lymphocytes # (A) 1.8 k/uL (1.0-4.8); Lymphocytes % (A) 21 %; MCH 29.6 pg (25.0-35.0); MCHC 34.1 g/dL (31.0-37.0); MCV 86.8 fL (80.0-100.0); Mean Platelet Volume 6.9; Monocytes # (A) 0.5 k/uL (0-1.0); Monocytes % (A) 6 %; Neutrophils # (A) 5.7 k/uL (1.3-7.7); Neutrophils % (A) 66 %; Platelet Count 321 k/uL (150-450); RBC 3.89 m/uL (3.80-5.40); RDW 12.9 % (11.5-15.5); WBC 8.7 k/uL (3.8-10.6)
[2017-11-04 19:32] LABS: Calcium 9.5 mg/dL (8.4-10.2); Magnesium 1.9 mg/dL (1.6-2.3); Potassium 4.9 mmol/L (3.5-5.1); Total Bilirubin 0.4 mg/dL (0.2-1.3); Total Protein 6.5 g/dL (6.3-8.2)
[2017-11-04 19:33] LABS: Partial Thromboplastin Time 23.2 sec (22.0-30.0); Prothrombin Time 9.5 sec (9.0-12.0)
[2017-11-04 19:51] LABS: Troponin I 0.012 ng/mL (0.000-0.034)
--- NOTE | 2017-11-04 20:05 | XR ---
EXAMINATION TYPE: XR chest 2V DATE OF EXAM: 11/04/2017 COMPARISON: 04/21/2017 HISTORY: Chest pain TECHNIQUE: Frontal and lateral views of the chest are obtained. FINDINGS: Heart and mediastinum are normal. Lungs are clear. There is no sign of pleural effusion. B raghu thorax is intact. There are chest leads. IMPRESSION: No active cardiopulmonary disease. No change.
--- NOTE | 2017-11-04 20:06 | XR ---
EXAMINATION TYPE: XR KUB DATE OF EXAM: 11/04/2017 COMPARISON: NONE HISTORY: Abdominal bloating. Pain. TECHNIQUE: 2 views FINDINGS: Bowel gas pattern is normal. There is no sign of intestinal obstruction or pneumoperitoneum . Fecal pattern is normal. Lung bases are clear. There are no pathologic calcifications over the kidn eys. IMPRESSION: Nonacute abdomen.
[2017-11-04 20:16] VITALS: BP 156/79; PULSE 71
[2017-11-04 20:22] LABS: Appearance,Urine Clear (Clear); Bacteria,Urine Rare /hpf; Bilirubin,Urine Negative (Negative); Blood,Urine Negative (Negative); Color,Urine Light Yellow; Glucose,Urine (UA) Negative (Negative); Ketones,Urine Negative (Negative); Leukocyte Esterase,Urine Moderate (Negative); Nitrite,Urine Negative (Negative); PH, Urine 5.5 (5.0-8.0); Protein,Urine Negative (Negative); RBC,Urine <1 /hpf (0-5); Specific Gravity,Urine 1.008 (1.001-1.035); Squamous Epithelial Cell,Urine <1 /hpf (0-4); Urobilinogen,Urine <2.0 mg/dL (<2.0); WBC,Urine 14 /hpf (0-5)
[2017-11-04 21:36] VITALS: RESP 18; TEMP 98
== END 2017-11-04 21:25 | disposition home or self-care (01) ==
LOC: EC 18:00
DX: R07.89 Other chest pain (principal); M54.2 Cervicalgia; M79.602 Pain in left arm; K21.9 Gastro-esophageal reflux disease without esophagitis; E78.5 Hyperlipidemia, unspecified; I10 Essential (primary) hypertension; E07.9 Disorder of thyroid, unspecified; H91.90 Unspecified hearing loss, unspecified ear; H54.62 Unqualified visual loss, left eye, normal vision right eye; F32.9 Major depressive disorder, single episode, unspecified; F41.9 Anxiety disorder, unspecified; Z86.73 Personal history of transient ischemic attack (TIA), and cerebral infarction without residual deficits; Z85.3 Personal history of malignant neoplasm of breast; Z87.891 Personal history of nicotine dependence; Z79.82 Long term (current) use of aspirin; Z79.899 Other long term (current) drug therapy; Z90.13 Acquired absence of bilateral breasts and nipples
CPT/HCPCS: 99285; 96374; 96361 ×2; 36415; 93005; 83880; 80053; 82150; 82550; 82553; 83690; 83735; 84484; 85025; 85610; 85730; 81001; 87086; 71046; 74018; J2360

== ENCOUNTER 2017-11-16 11:03 | Inpatient (IN) | payer MEDICARE, OTHER ==
[2017-11-16] MEDS ORDERED: SODIUM CHLORIDE 0.9% 500 ML IV STA (12:00)
[2017-11-16] MEDS ORDERED: RX INFO: IV CONTRAST WAS GIVEN 1 EACH MISC MISCELLANE PRN (12:00)
[2017-11-16 12:20] LABS: Basophils % (A) 0 %; Eosinophils % (A) 0 %; HCT 31.9 % (34.0-46.0); Lymphocytes # (A) 1.1 k/uL (1.0-4.8); Lymphocytes % (A) 7 %; MCH 29.8 pg (25.0-35.0); MCHC 34.5 g/dL (31.0-37.0); MCV 86.2 fL (80.0-100.0); Mean Platelet Volume 7.6; Monocytes % (A) 7 %; Neutrophils # (A) 12.5 k/uL (1.3-7.7); Neutrophils % (A) 84 %; Platelet Count 242 k/uL (150-450); RDW 13.1 % (11.5-15.5); WBC 14.8 k/uL (3.8-10.6)
[2017-11-16 12:31] LABS: Albumin 4.1 g/dL (3.5-5.0); Calcium 9.3 mg/dL (8.4-10.2); Potassium 3.6 mmol/L (3.5-5.1); Total Bilirubin 0.7 mg/dL (0.2-1.3); Total Protein 6.8 g/dL (6.3-8.2)
--- NOTE | 2017-11-16 12:44 | ED ---
Abdominal Pain HPI - General Chief Complaint: Abdominal Pain Stated Complaint: Severe Abd Bloating 1 month post op Time Seen by Provider: 11/16/17 12:00 Source: patient, RN notes reviewed Mode of arrival: ambulatory Limitations: no limitations - History of Present Illness Initial Comments: This is a 72-year-old female presented emergency from for abdominal pain, bloating and cold-like symptoms. Patient states that she's had increased abdominal distention and vomiting. She states she cannot keep anything down. Patient states she is postop 1-2 months from mastectomy though review of the chart shows surgery was in February 2017. Patient does have a history of CVA. Patient states even sick for last week with cough congestion. She did take Tylenol prior arrival. Denies any ear pain, sore throat. Denies any diarrhea or constipation. No dysuria no hematuria. - Related Data Home Medications Medication Instructions Recorded Confirmed Ranitidine HCl [Zantac] 150 mg PO BID 06/04/14 11/16/17 Aspirin EC [Ecotrin Low Dose] 81 mg PO DAILY 01/03/17 11/16/17 Atorvastatin [Lipitor] 10 mg PO HS 01/03/17 11/16/17 Valsartan/Hydrochlorothiazide 1 tab PO DAILY 01/03/17 11/16/17 [Valsartan-Hctz 320-25 mg Tab] Anastrozole [Arimidex] 1 mg PO DAILY 11/04/17 11/16/17 Ergocalciferol [Vitamin D2] 50,000 unit PO GARCIA 11/04/17 11/16/17 FLUoxetine HCL [PROzac] 20 mg PO DAILY 11/04/17 11/16/17 Levothyroxine Sodium [Synthroid] 125 mcg PO DAILY 11/04/17 11/16/17 amLODIPine [Norvasc] 10 mg PO DAILY 11/04/17 11/16/17 ALPRAZolam [Xanax] 0.5 mg PO DAILY PRN 11/16/17 11/16/17 Albuterol Inhaler [Ventolin Hfa 2 puff INHALATION RT-QID PRN 11/16/17 11/16/17 Inhaler] Fluticasone/Salmeterol [Advair 1 puff INHALATION RT-BID 11/16/17 11/16/17 100-50 Diskus] HYDROcodone/APAP 5-325MG [[place] 1 tab PO Q6H PRN 11/16/17 11/16/17 5-325] Allergies Allergy/AdvReac Type Severity Reaction Status Date / Time No Known Allergies Allergy Verified 11/16/17 13:16 Review of Systems ROS Statement: Those systems with pertinent positive or pertinent negative responses have been documented in the HPI. ROS Other: All systems not noted in ROS Statement are negative. Past Medical History Past Medical History: Asthma, Cancer, CVA/TIA, Eye Disorder, GERD/Reflux, Hearing Disorder / Deafness, Hyperlipidemia, Hypertension, Memory Impairment, Syncope, Thyroid Disorder Additional Past Medical History / Comment(s): syncope, constipation, DDD, [place] have hearing aides. [place] Breast Cancer, no radiation or chemotherapy; EDEMA LT ARM. Blind in left eye. CVA - C/O NUMBNESS LT SIDE, PAIN IN LT ARM, LT HIP. NOT TO USE LT ARM D/T PREV SURGERY. History of Any Multi-Drug Resistant Organisms: None Reported Past Surgical History: Hysterectomy, Joint Replacement Additional Past Surgical History / Comment(s): [place] knee replacment; Double mastectomy 03/13/17 Past Anesthesia/Blood Transfusion Reactions: No Reported Reaction Past Psychological History: Anxiety, Depression Smoking Status: Former smoker Past Alcohol Use History: None Reported Past Drug Use History: None Reported - Past Family History Father Family Medical History: Cancer, CVA/TIA, Diabetes Mellitus, Myocardial Infarction ([place]) Mother Family Medical History: Myocardial Infarction ([place]) General Exam Limitations: no limitations General appearance: alert, in no apparent distress Head exam: Present: atraumatic, normocephalic, normal inspection Eye exam: Present: normal appearance, PERRL, EOMI. Absent: scleral icterus, conjunctival injection, periorbital swelling ENT exam: Present: normal exam, normal oropharynx, mucous membranes moist Neck exam: Present: normal inspection. Absent: tenderness, meningismus, lymphadenopathy Respiratory exam: Present: normal lung sounds bilaterally. Absent: respiratory distress, wheezes, rales, rhonchi, stridor Cardiovascular Exam: Present: regular rate, normal rhythm, normal heart sounds. Absent: systolic murmur, diastolic murmur, rubs, gallop, clicks GI/Abdominal exam: Present: soft, distended, tenderness, normal bowel sounds. Absent: guarding, rebound, rigid Back exam: Absent: CVA tenderness (R), CVA tenderness (L) Skin exam: Present: warm, dry, intact, normal color. Absent: rash Course Vital Signs 11/16/17 11:39 Temperature 100.9 F H Pulse Rate 82 Respiratory 18 Rate Blood Pressure 117/51 O2 Sat by Pulse 96 Oximetry Medical Decision Making - Medical Decision Making 72-year-old female presented for abdominal pain cough congestion. Patient's found to have pneumonia. Patient be admitted for IV antibiotics, nebulized treatments. Patient is stable at this time. - Lab Data Result diagrams: 11/16/17 12:00 11/16/17 12:00 Lab Results 11/16/17 11/16/17 11/16/17 Range/Units 12:00 12:00 12:00 WBC 14.8 H (3.8-10.6) k/uL RBC 3.70 L (3.80-5.40) m/uL Hgb 11.0 L (11.4-16.0) gm/dL Hct 31.9 L (34.0-46.0) % MCV 86.2 (80.0-100.0) fL MCH 29.8 (25.0-35.0) pg MCHC 34.5 (31.0-37.0) g/dL RDW 13.1 (11.5-15.5) % Plt Count 242 (150-450) k/uL Neutrophils % 84 % Lymphocytes % 7 % Monocytes % 7 % Eosinophils % 0 % Basophils % 0 % Neutrophils # 12.5 H (1.3-7.7) k/uL Lymphocytes # 1.1 (1.0-4.8) k/uL Monocytes # 1.0 (0-1.0) k/uL Eosinophils # 0.0 (0-0.7) k/uL Basophils # 0.0 (0-0.2) k/uL Sodium 142 (137-145) mmol/L Potassium 3.6 (3.5-5.1) mmol/L Chloride 101 (98-107) mmol/L Carbon Dioxide 23 (22-30) mmol/L Anion Gap 18 mmol/L BUN 35 H (7-17) mg/dL Creatinine 1.90 H (0.52-1.04) mg/dL Est GFR (CKD-EPI)AfAm 30 (>60 ml/min/1.73 sqM) Est GFR (CKD-EPI)NonAf 26 (>60 ml/min/1.73 sqM) Glucose 122 H (74-99) mg/dL Plasma Lactic Acid [place] 1.3 (0.7-2.0) mmol/L Calcium 9.3 (8.4-10.2) mg/dL Total Bilirubin 0.7 (0.2-1.3) mg/dL AST 18 (14-36) U/L ALT 24 (9-52) U/L Alkaline Phosphatase 85 (38-126) U/L Total Protein 6.8 (6.3-8.2) g/dL Albumin 4.1 (3.5-5.0) g/dL Amylase 61 (30-110) U/L Lipase 93 (23-300) U/L Disposition Clinical Impression: Pneumonia, Abdominal pain Disposition: ADMITTED IP TO THIS HOSP Condition: Stable Referrals: Nicole Galvan MD [Primary Care Provider] - 1-2 days
--- NOTE | 2017-11-16 12:45 | XR ---
EXAMINATION TYPE: XR chest 2V DATE OF EXAM: 11/16/2017 COMPARISON: 11/04/2017 TECHNIQUE: PA and lateral views submitted. HISTORY: Cough and fever FINDINGS: Left basilar subsegmental consolidation. No pneumothorax or pleural effusion. Hypertrophic and degene rative change of the spine. Prominent pericardial fat pad noted on the right. IMPRESSION: 1. Left basilar subsegmental consolidation. Correlate for atelectasis or early infiltrate.
--- NOTE | 2017-11-16 13:10 | CT ---
EXAMINATION TYPE: CT abdomen pelvis wo con DATE OF EXAM: 11/16/2017 COMPARISON: NONE HISTORY: Severe abd bloating CT DLP: 623 mGycm Examination of the solid and hollow viscera is limited given the lack of contrast. FINDINGS: LUNG BASES: No evidence for nodule. No evidence for infiltrate. Mild lower lobe bronchiectasis. LIVER/GB: The gallbladder is unremarkable. No space-occupying hepatic lesion. PANCREAS: No pancreatic mass identified. No inflammatory process seen. SPLEEN: No evidence for splenomegaly. No intrasplenic lesions seen. ADRENALS: No adrenal nodules identified. No evidence for thickening. KIDNEYS: No evidence for renal mass. No nephrolithiasis. No hydronephrosis. BOWEL: Appendix has a normal appearance. No evidence of bowel obstruction. No inflammatory process. Lymph nodes: No evidence for adenopathy greater than 1 cm. Abdominal aorta: Atheromatous changes seen. No evidence for aneurysm. Genital organs: Hysterectomy changes noted. No evidence for adnexal mass. Other: No significant abnormality. IMPRESSION: NO ACUTE INTRA-ABDOMINAL OR INTRAPELVIC PROCESS IDENTIFIED TO ACCOUNT FOR THE PATIENT'S SYMPTOMS.
[2017-11-16] MEDS ORDERED: LEVOFLOXACIN 750MG-D5W PMX 750 MG in DEXTROSE/WATER 1 150ML.BAG IVPB STA (14:31)
[2017-11-16] MEDS ORDERED: PNEUMONIA PROTOCOL UTILIZED 1 EACH MISC PO PRN (14:31)
[2017-11-16 15:09] LABS: Appearance,Urine Cloudy (Clear); Bacteria,Urine Rare /hpf; Bilirubin,Urine Negative (Negative); Blood,Urine Negative (Negative); Budding Yeast,Urine Occasional /hpf; Color,Urine Yellow; Glucose,Urine (UA) Negative (Negative); Hyaline Casts,Urine 154 /lpf (0-2); Ketones,Urine Negative (Negative); Leukocyte Esterase,Urine Large (Negative); Mucus,Urine Occasional /hpf; Nitrite,Urine Negative (Negative); Protein,Urine 1+ (Negative); RBC,Urine 11 /hpf (0-5); Squamous Epithelial Cell,Urine 3 /hpf (0-4); WBC,Urine 179 /hpf (0-5)
[2017-11-16] MEDS: IPRATROPIUM-ALBUTEROL 3 ML NEB INHALATION SCH ×2 (16:02→19:52)
[2017-11-16] MEDS ORDERED: ALBUTEROL NEBULIZED 2.5 MG/3 ML INHALATION PRN (17:17)
[2017-11-16] MEDS ORDERED: ALPRAZolam 0.5 MG TAB PO PRN (17:17)
[2017-11-16] MEDS: SYMBICORT 80-4.5 MCG INHALER INHALATION SCH (19:52)
[2017-11-16] MEDS: HYDROcodone/APAP 5-325MG 1 EACH TAB PO PRN (20:52)
[2017-11-16] MEDS: ATORVASTATIN 10 MG TAB PO SCH (20:53)
[2017-11-16 22:21] LABS: Glucose,Whole Blood 130 mg/dL (75-99)
[2017-11-16] MEDS: HEPARIN SODIUM,PORCINE 5,000 UNIT/ML 1 ML VIAL SQ SCH (23:47)
[2017-11-17] MEDS: IPRATROPIUM-ALBUTEROL 3 ML NEB INHALATION SCH ×7 (00:12→23:31)
--- NOTE | 2017-11-17 01:00 | P.HPIM ---
History of Present Illness H&P Date: 11/16/17 Chief Complaint: Abdominal pain. Cough with shortness of breath Patient is a 72-year-old female with a known history of CK D stage III, bilateral breast cancer status post mastectomy and history of previous UTI, hearing disorder and multiple other medical problems including memory impairment presented emergency from for abdominal pain, bloating and cold-like symptoms. Patient states that she's had increased abdominal distention and vomiting. She states she cannot keep anything down. Patient is status post mastectomy bilaterally in February 2017. 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 Patient states even sick for last week with cough congestion. She did take Tylenol prior arrival. Denies any ear pain, sore throat. Denies any diarrhea or constipation. No dysuria no hematuria. Patient denied any abdominal pain. Chest x-ray showed left basilar subsegmental atelectasis/consolidation. Correlate for elderly infiltrate. Patient is a poor historian. Most the history was taken medical records. T-max 100.9 WBC 14.8 Creatinine 1.9. BUN 35 Influenza PCR negative UA showed large leukocyte esterase and WBC 179 Review of Systems Constitutional: Patient does have subjective fever and chills at home . No generalized weakness or weight loss. Abdomen: Patient denied nausea vomiting and diarrhea and abdominal pain. Abdominal distention Cardiovascular: Patient denies any chest pain or short of breath no palpitations. Respiratory: Cough with whitish sputum production and shortness of breath Neurologic: Patient denied any numbness or tingling headache. Musculoskeletal: Patient denies any complaints of joint swelling or deformity. Skin: Negative Psychiatric: Negative Endocrine: No heat or cold intolerance. No recent weight gain. Genitourinary: No dysuria or hematuria. All other 14 point ROS negative except the above Past Medical History Past Medical History: Asthma, Cancer, CVA/TIA, Eye Disorder, GERD/Reflux, Hearing Disorder / Deafness, Hyperlipidemia, Hypertension, Memory Impairment, Syncope, Thyroid Disorder Additional Past Medical History / Comment(s): syncope, constipation, DDD, [place] [facility] [place] does'nt have hearing aides. [facility] Breast Cancer, no radiation or chemotherapy; EDEMA LT ARM. Blind in left eye. CVA - C/O NUMBNESS LT SIDE, PAIN IN LT ARM, LT HIP. NOT TO USE LT ARM D/T PREV SURGERY. History of Any Multi-Drug Resistant Organisms: None Reported Past Surgical History: Hysterectomy, Joint Replacement Additional Past Surgical History / Comment(s): [facility] knee replacment; Double mastectomy 03/13/17 Past Anesthesia/Blood Transfusion Reactions: No Reported Reaction Past Psychological History: Anxiety, Depression Additional Psychological History / Comment(s): Patient poor historian, unable to remember details of recent events. Smoking Status: Former smoker Past Alcohol Use History: None Reported Additional Past Alcohol Use History / Comment(s): started smoking age 20, smoked 1ppd, quit 2009 Past Drug Use History: None Reported - Past Family History Father Family Medical History: Cancer, CVA/TIA, Diabetes Mellitus, Myocardial Infarction ([place]) Mother Family Medical History: Myocardial Infarction ([place]) Medications and Allergies Home Medications Medication Instructions Recorded Confirmed Type Ranitidine HCl [Zantac] 150 mg PO BID 06/04/14 11/16/17 History Aspirin EC [Ecotrin Low Dose] 81 mg PO DAILY 01/03/17 11/16/17 History Atorvastatin [Lipitor] 10 mg PO HS 01/03/17 11/16/17 History Valsartan/Hydrochlorothiazide 1 tab PO DAILY 01/03/17 11/16/17 History [Valsartan-Hctz 320-25 mg Tab] Anastrozole [Arimidex] 1 mg PO DAILY 11/04/17 11/16/17 History Ergocalciferol [Vitamin D2] 50,000 unit PO GARCIA 11/04/17 11/16/17 History FLUoxetine HCL [PROzac] 20 mg PO DAILY 11/04/17 11/16/17 History Levothyroxine Sodium [Synthroid] 125 mcg PO DAILY 11/04/17 11/16/17 History amLODIPine [Norvasc] 10 mg PO DAILY 11/04/17 11/16/17 History ALPRAZolam [Xanax] 0.5 mg PO DAILY PRN 11/16/17 11/16/17 History Albuterol Inhaler [Ventolin Hfa 2 puff INHALATION RT-QID PRN 11/16/17 11/16/17 History Inhaler] Fluticasone/Salmeterol [Advair 1 puff INHALATION RT-BID 11/16/17 11/16/17 History 100-50 Diskus] HYDROcodone/APAP 5-325MG [[place] 1 tab PO Q6H PRN 11/16/17 11/16/17 History 5-325] Allergies Allergy/AdvReac Type Severity Reaction Status Date / Time No Known Allergies Allergy Verified 11/16/17 13:16 Physical Exam Vitals: Vital Signs Temp Pulse Resp BP Pulse Ox 11/16/17 16:16 99.9 F H 83 16 115/56 93 L 11/16/17 15:21 77 16 153/61 96 11/16/17 11:39 100.9 F H 82 18 117/51 96 Intake and Output 11/16/17 11/16/17 11/16/17 06:59 14:59 22:59 Other: Weight 73.482 kg PHYSICAL EXAMINATION: Patient is lying in the bed comfortably, no acute distress, awake alert and orientedx 2, poor historian.. HEENT: Normocephalic. Neck is supple. Pupils reactive. Nostrils clear. Oral cavity is moist. Ears reveal no drainage. Neck reveals no JVD, carotid bruits, or thyromegaly. CHEST EXAMINATION: Bilateral mastectomy. Trachea is central. Symmetrical expansion. Bibasilar crackles and rhonchi positive. No wheezing CARDIAC: Normal S1, S2 with no gallops. No murmurs ABDOMEN: Soft. Distended. Nontender. Bowel sounds normal. No organomegaly. No abdominal bruits. Extremities: Trace edema. No clubbing or cyanosis Neurologically awake, alert, oriented x2 with well-coordinated movements. No focal deficits noted Skin: No rash or skin lesions. Psychiatric: Coperative. Could not be assessed completely. Musculoskeletal: No joint swelling or deformity. Normal range of motion. Results CBC & Chem 7: 11/16/17 12:00 11/16/17 12:00 Labs: Abnormal Lab Results - Last 24 Hours (Table) 11/16/17 11/16/17 11/16/17 Range/Units 12:00 12:00 14:50 WBC 14.8 H (3.8-10.6) k/uL RBC 3.70 L (3.80-5.40) m/uL Hgb 11.0 L (11.4-16.0) gm/dL Hct 31.9 L (34.0-46.0) % Neutrophils # 12.5 H (1.3-7.7) k/uL BUN 35 H (7-17) mg/dL Creatinine 1.90 H (0.52-1.04) mg/dL Glucose 122 H (74-99) mg/dL Urine Appearance Cloudy H (Clear) Urine Protein 1+ H (Negative) Ur Leukocyte Esterase Large H (Negative) Urine RBC 11 H (0-5) /hpf Urine WBC 179 H (0-5) /hpf Urine WBC Clumps Few H (None) /hpf Urine Bacteria Rare H (None) /hpf Hyaline Casts 154 H (0-2) /lpf Urine Mucus Occasional H (None) /hpf Urine Yeast (Budding) Occasional H (None) /hpf Thrombosis Risk Factor Assmnt - DVT/VTE Prophylaxis DVT/VTE Prophylaxis: Pharmacologic Prophylaxis ordered - Choose All That Apply Each Risk Factor Represents 2 Points: Age 61-74 years Thrombosis Risk Factor Assessment Total Risk Factor Score: 2 Thrombosis Risk Factor Assessment Level: Low Risk Assessment and Plan Assessment: Left lower lobe atelectasis/consolidation/infiltrate possible early pneumonia Acute urinary tract infection Sepsis secondary to above. Patient was febrile and leukocytosis Abdominal distention likely due to ascites Acute on chronic kidney disease stage III. Baseline creatinine 1.08. Currently 1.9 Breast cancer status post bilateral mastectomy currently on hormonal therapy Degenerative joint disease History of CVA/TIA. With numbness on the left side and pain in left arm and left hip GERD Hearing disorder Hyperlipidemia Hypertension Memory impairment Hypothyroidism Anxiety and depression Previous history of smoking DVT prophylaxis Plan: Patient will be continued on antibiotics in the form of levofloxacin. Follow- up urine culture reports. Will get ultrasound of the abdomen for possible paracentesis. Monitor renal function and gentle hydration. Further recommendations based on the clinical course. Continue with home medications. Prognosis is guarded with multiple medical problems and comorbid conditions. Time with Patient: Greater than 30
[2017-11-17] MEDS: HYDROcodone/APAP 5-325MG 1 EACH TAB PO PRN ×2 (06:25→11:42)
[2017-11-17] MEDS: LEVOTHYROXINE 125 MCG TAB PO SCH (06:25)
[2017-11-17] MEDS: SYMBICORT 80-4.5 MCG INHALER INHALATION SCH ×2 (08:23→20:11)
[2017-11-17] MEDS: FLUoxetine HCL 20 MG CAP PO SCH (08:27)
[2017-11-17] MEDS: amLODIPine 10 MG TAB PO SCH ×2 (08:27→08:29)
[2017-11-17] MEDS: PANTOPRAZOLE 40 MG TABLET PO SCH (08:27)
[2017-11-17] MEDS: ANASTROZOLE 1 MG TAB PO SCH (08:27)
[2017-11-17] MEDS: ASPIRIN 81 MG PO SCH (08:27)
[2017-11-17] MEDS: HEPARIN SODIUM,PORCINE 5,000 UNIT/ML 1 ML VIAL SQ SCH ×3 (08:27→23:10)
--- NOTE | 2017-11-17 08:33 | XR ---
EXAMINATION TYPE: XR chest 2V DATE OF EXAM: 11/17/2017 COMPARISON: Prior chest x-ray and CT 11/16/2017 HISTORY: Pneumonia TECHNIQUE: Frontal and lateral views of the chest are obtained. FINDINGS: Retrocardiac increased density is compatible with pneumonia. There may be small effusion. No pneumothorax. Heart size within normal limits. There are prominent epicardial fat pads. IMPRESSION: Left lower lobe pneumonia, follow-up to resolution.
--- NOTE | 2017-11-17 08:38 | US ---
EXAMINATION TYPE: US abdomen complete DATE OF EXAM: 11/17/2017 COMPARISON: CT 11/16/2017 CLINICAL HISTORY: Abdominal distention. Difficult exam as patient is not able to take a deep breath i n and hold, overlying bowel gas, and patient body habitus EXAM MEASUREMENTS: Liver Length: 15.2 cm Gallbladder Wall: 0.2 cm CBD: 0.5 cm Spleen: 8.1 cm Right Kidney: 8.7 x 4.1 x 4.2 cm Left Kidney: 8.5 x 3.6 x 3.6 cm Pancreas: Obscured by bowel gas Liver: Echogenic and heterogeneous Gallbladder: No stones or sludge visualized Evidence for sonographic Gonzalez's sign: No CBD: wnl, distal portion obscured by bowel gas Spleen: wnl Right Kidney: Measuring small. Corticomedullary thinning Left Kidney: Measuring small. Corticomedullary thinning Upper IVC: wnl Abd Aorta: wnl Kidneys show cortical medullary differentiation, there is no hydronephrosis. There is no ascites. IMPRESSION: Technologist reports a limited exam. Correlate for possible hepatocellular disease, hepat ic steatosis. Possible medical renal disease.
[2017-11-17 09:46] LABS: Basophils % (A) 0 %; Eosinophils # (A) 0.1 k/uL (0-0.7); Eosinophils % (A) 1 %; HGB 9.8 gm/dL (11.4-16.0); Lymphocytes # (A) 0.8 k/uL (1.0-4.8); Lymphocytes % (A) 8 %; MCH 30.5 pg (25.0-35.0); MCV 87.1 fL (80.0-100.0); Mean Platelet Volume 7.5; Monocytes # (A) 0.5 k/uL (0-1.0); Monocytes % (A) 5 %; Neutrophils # (A) 8.6 k/uL (1.3-7.7); Neutrophils % (A) 84 %; Platelet Count 198 k/uL (150-450); RBC 3.21 m/uL (3.80-5.40); RDW 12.8 % (11.5-15.5); WBC 10.2 k/uL (3.8-10.6)
[2017-11-17] MEDS: ONDANSETRON 4 MG/2 ML VIAL IVP PRN ×2 (09:58→18:46)
[2017-11-17 10:26] LABS: Calcium 8.5 mg/dL (8.4-10.2); Potassium 3.7 mmol/L (3.5-5.1)
[2017-11-17] MEDS: SODIUM CHLORIDE 0.9% 1,000 ML IV SCH (10:51)
[2017-11-17] MEDS ORDERED: LEVOFLOXACIN 750MG-D5W PMX 750 MG in DEXTROSE/WATER 1 150ML.BAG IVPB SCH ×2 (16:00→18:00)
[2017-11-17] MEDS: ATORVASTATIN 10 MG TAB PO SCH (20:05)
[2017-11-18] MEDS: IPRATROPIUM-ALBUTEROL 3 ML NEB INHALATION SCH ×5 (03:41→20:46)
[2017-11-18] MEDS: LEVOTHYROXINE 125 MCG TAB PO SCH (06:13)
[2017-11-18] MEDS: SODIUM CHLORIDE 0.9% 1,000 ML IV SCH (06:14)
[2017-11-18] MEDS: SYMBICORT 80-4.5 MCG INHALER INHALATION SCH ×2 (07:19→20:46)
[2017-11-18] MEDS: HEPARIN SODIUM,PORCINE 5,000 UNIT/ML 1 ML VIAL SQ SCH ×3 (07:23→23:06)
[2017-11-18] MEDS: FLUoxetine HCL 20 MG CAP PO SCH (07:23)
[2017-11-18] MEDS: PANTOPRAZOLE 40 MG TABLET PO SCH (07:23)
[2017-11-18] MEDS: ANASTROZOLE 1 MG TAB PO SCH (07:24)
[2017-11-18] MEDS: ASPIRIN 81 MG PO SCH (07:24)
[2017-11-18] MEDS: amLODIPine 10 MG TAB PO SCH (07:24)
--- NOTE | 2017-11-18 12:34 | P.PN ---
Subjective Progress Note Date: 11/17/17 Principal diagnosis: Left lower lobe pneumonia Patient is a 72-year-old female with a known history of CK D stage III, bilateral breast cancer status post mastectomy and history of previous UTI, hearing disorder and multiple other medical problems including memory impairment presented emergency from for abdominal pain, bloating and cold-like symptoms. Patient states that she's had increased abdominal distention and vomiting. She states she cannot keep anything down. Patient is status post mastectomy bilaterally in February 2017. 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 Patient states even sick for last week with cough congestion. She did take Tylenol prior arrival. Denies any ear pain, sore throat. Denies any diarrhea or constipation. No dysuria no hematuria. Patient denied any abdominal pain. Chest x-ray showed left basilar subsegmental atelectasis/consolidation. Correlate for elderly infiltrate. Patient is a poor historian. Most the history was taken medical records. T-max 100.9 WBC 14.8 Creatinine 1.9. BUN 35 Influenza PCR negative UA showed large leukocyte esterase and WBC 179 5 3 2017 Patient says that her breathing status is slightly better today. Still having shortness of breath and coarse breath sounds. Continued on antibiotics and IV steroids will be added. Consider pulmonary consult if does not get better. Otherwise no fever no chills. Leukocytosis improved. 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 No nausea vomiting or abdominal pain. All other review of systems negative except the above Current medications reviewed. Objective - Vital Signs Vital signs: Vital Signs Temp 97.3 F L 11/17/17 06:59 Pulse 71 11/17/17 06:59 Resp 20 11/17/17 06:59 BP 100/57 11/17/17 06:59 Pulse Ox 95 11/17/17 06:59 Intake & Output 11/16/17 11/17/17 11/17/17 18:59 06:59 18:59 Weight 73.482 kg Other: Voiding Method Bedside Commode Bedside Commode # Voids 2 # Bowel Movements 1 - Exam PHYSICAL EXAMINATION: Patient is lying in the bed comfortably, no acute distress, awake alert and oriented.. HEENT: Normocephalic. Neck is supple. Pupils reactive. Nostrils clear. Oral cavity is moist. Ears reveal no drainage. Neck reveals no JVD, carotid bruits, or thyromegaly. CHEST EXAMINATION: Trachea is central. Symmetrical expansion. Bilateral diffuse coarse breath sounds and minimal wheezing.. CARDIAC: Normal S1, S2 with no gallops. No murmurs ABDOMEN: Soft. Distended. Nontender. Bowel sounds normal. No organomegaly. No abdominal bruits. Extremities: reveal no edema. No clubbing or cyanosis Neurologically awake, alert, oriented x3 with well-coordinated movements. No focal deficits noted Skin: No rash or skin lesions. Psychiatric: Cooperative. Nonsuicidal Musculoskeletal: No joint swelling or deformity. Normal range of motion. - Labs CBC & Chem 7: 11/17/17 09:02 11/17/17 09:02 Labs: Abnormal Lab Results - Last 24 Hours (Table) 11/16/17 11/16/17 11/16/17 Range/Units 12:00 12:00 14:50 WBC 14.8 H (3.8-10.6) k/uL RBC 3.70 L (3.80-5.40) m/uL Hgb 11.0 L (11.4-16.0) gm/dL Hct 31.9 L (34.0-46.0) % Neutrophils # 12.5 H (1.3-7.7) k/uL Lymphocytes # (1.0-4.8) k/uL Carbon Dioxide (22-30) mmol/L BUN 35 H (7-17) mg/dL Creatinine 1.90 H (0.52-1.04) mg/dL Glucose 122 H (74-99) mg/dL POC Glucose (mg/dL) (75-99) mg/dL Urine Appearance Cloudy H (Clear) Urine Protein 1+ H (Negative) Ur Leukocyte Esterase Large H (Negative) Urine RBC 11 H (0-5) /hpf Urine WBC 179 H (0-5) /hpf Urine WBC Clumps Few H (None) /hpf Urine Bacteria Rare H (None) /hpf Hyaline Casts 154 H (0-2) /lpf Urine Mucus Occasional H (None) /hpf Urine Yeast (Budding) Occasional H (None) /hpf 11/16/17 11/17/17 11/17/17 Range/Units 22:20 09:02 09:02 WBC (3.8-10.6) k/uL RBC 3.21 L (3.80-5.40) m/uL Hgb 9.8 L (11.4-16.0) gm/dL Hct 28.0 L (34.0-46.0) % Neutrophils # 8.6 H (1.3-7.7) k/uL Lymphocytes # 0.8 L (1.0-4.8) k/uL Carbon Dioxide 21 L (22-30) mmol/L BUN 37 H (7-17) mg/dL Creatinine 1.56 H (0.52-1.04) mg/dL Glucose 112 H (74-99) mg/dL POC Glucose (mg/dL) 130 H (75-99) mg/dL Urine Appearance (Clear) Urine Protein (Negative) Ur Leukocyte Esterase (Negative) Urine RBC (0-5) /hpf Urine WBC (0-5) /hpf Urine WBC Clumps (None) /hpf Urine Bacteria (None) /hpf Hyaline Casts (0-2) /lpf Urine Mucus (None) /hpf Urine Yeast (Budding) (None) /hpf Microbiology - Last 24 Hours (Table) 11/16/17 14:50 Urine Culture - Preliminary Urine,Voided Assessment and Plan Assessment: Left lower lobe atelectasis/consolidation/infiltrate possible early pneumonia Acute bronchospasm possible underlying COPD Acute urinary tract infection. Urine culture showed no growth Sepsis secondary to above. Patient was febrile and leukocytosis Abdominal distention likely due to ascites Acute on chronic kidney disease stage III. Baseline creatinine 1.08. Currently 1.9 Breast cancer status post bilateral mastectomy currently on hormonal therapy Degenerative joint disease History of CVA/TIA. With numbness on the left side and pain in left arm and left hip GERD Hearing disorder Hyperlipidemia Hypertension Memory impairment Hypothyroidism Anxiety and depression Previous history of smoking DVT prophylaxis Plan: Patient will be continued on antibiotics in the form of levofloxacin. Follow- up urine culture reports. Monitor renal function and gentle hydration. Further recommendations based on the clinical course. Continue with home medications. Prognosis is guarded with multiple medical problems and comorbid conditions. Time with Patient: Greater than 30
[2017-11-18] MEDS: ATORVASTATIN 10 MG TAB PO SCH (21:32)
--- NOTE | 2017-11-18 23:59 | P.PN ---
Subjective Progress Note Date: 11/18/17 Principal diagnosis: Left lower lobe pneumonia Patient is a 72-year-old female with a known history of CK D stage III, bilateral breast cancer status post mastectomy and history of previous UTI, hearing disorder and multiple other medical problems including memory impairment presented emergency from for abdominal pain, bloating and cold-like symptoms. Patient states that she's had increased abdominal distention and vomiting. She states she cannot keep anything down. Patient is status post mastectomy bilaterally in February 2017. 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 Patient states even sick for last week with cough congestion. She did take Tylenol prior arrival. Denies any ear pain, sore throat. Denies any diarrhea or constipation. No dysuria no hematuria. Patient denied any abdominal pain. Chest x-ray showed left basilar subsegmental atelectasis/consolidation. Correlate for elderly infiltrate. Patient is a poor historian. Most the history was taken medical records. T-max 100.9 WBC 14.8 Creatinine 1.9. BUN 35 Influenza PCR negative UA showed large leukocyte esterase and WBC 179 5 3 2017 Patient says that her breathing status is slightly better today. Still having shortness of breath and coarse breath sounds. Continued on antibiotics and IV steroids will be added. Consider pulmonary consult if does not get better. Otherwise no fever no chills. Leukocytosis improved. 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 No nausea vomiting or abdominal pain. 11/18/2017 Patient's breathing status is much improved today. Otherwise patient is slightly febrile with T-max 100.1. Continued on current management and anticipate discharge next 24 hours. All other review of systems negative except the above Current medications reviewed. Objective - Vital Signs Vital signs: Vital Signs Temp 100.1 F H 11/18/17 15:00 Pulse 78 11/18/17 15:00 Resp 18 11/18/17 15:00 BP 108/68 11/18/17 15:00 Pulse Ox 96 11/18/17 15:00 Intake & Output 11/18/17 11/18/17 11/19/17 06:59 18:59 06:59 Intake Total 750 Output Total 300 Balance -300 750 Intake: Oral 750 Output: Urine 300 Other: Voiding Method Bedside Commode Bedside Commode # Voids 1 1 2 - Exam PHYSICAL EXAMINATION: Patient is lying in the bed comfortably, no acute distress, awake alert and oriented.. HEENT: Normocephalic. Neck is supple. Pupils reactive. Nostrils clear. Oral cavity is moist. Ears reveal no drainage. Neck reveals no JVD, carotid bruits, or thyromegaly. CHEST EXAMINATION: Trachea is central. Symmetrical expansion. Bilateral air entry much improved. Minimal expiratory wheezing.. CARDIAC: Normal S1, S2 with no gallops. No murmurs ABDOMEN: Soft. Distended. Nontender. Bowel sounds normal. No organomegaly. No abdominal bruits. Extremities: reveal no edema. No clubbing or cyanosis Neurologically awake, alert, oriented x3 with well-coordinated movements. No focal deficits noted Skin: No rash or skin lesions. Psychiatric: Cooperative. Nonsuicidal Musculoskeletal: No joint swelling or deformity. Normal range of motion. - Labs CBC & Chem 7: 11/17/17 09:02 11/17/17 09:02 Labs: Microbiology - Last 24 Hours (Table) 11/16/17 12:00 Blood Culture - Preliminary Blood No Growth after 48 hours 11/16/17 14:50 Urine Culture - Final Urine,Voided Assessment and Plan Assessment: Left lower lobe atelectasis/consolidation/infiltrate due to left lower lobe pneumonia Acute bronchospasm possible underlying COPD with exacerbation Acute urinary tract infection. Urine culture showed no growth Sepsis secondary to above. Patient was febrile and leukocytosis Abdominal distention likely due to ascites Acute on chronic kidney disease stage III. Baseline creatinine 1.08. Currently 1.9 Breast cancer status post bilateral mastectomy currently on hormonal therapy Degenerative joint disease History of CVA/TIA. With numbness on the left side and pain in left arm and left hip GERD Hearing disorder Hyperlipidemia Hypertension Memory impairment Hypothyroidism Anxiety and depression Previous history of smoking DVT prophylaxis Plan: Patient will be continued on antibiotics in the form of levofloxacin. Follow- up urine culture reports. Monitor renal function and gentle hydration. Further recommendations based on the clinical course. Continue with home medications. Prognosis is guarded with multiple medical problems and comorbid conditions. Time with Patient: Greater than 30
[2017-11-19 01:27] VITALS: RESP 20
[2017-11-19] MEDS: IPRATROPIUM-ALBUTEROL 3 ML NEB INHALATION SCH ×3 (04:58→11:29)
[2017-11-19] MEDS: LEVOTHYROXINE 125 MCG TAB PO SCH (06:35)
[2017-11-19 07:47] VITALS: BP 132/52; TEMP 98.8
[2017-11-19] MEDS: SYMBICORT 80-4.5 MCG INHALER INHALATION SCH (07:52)
[2017-11-19] MEDS: HEPARIN SODIUM,PORCINE 5,000 UNIT/ML 1 ML VIAL SQ SCH (08:05)
[2017-11-19] MEDS: FLUoxetine HCL 20 MG CAP PO SCH (08:05)
[2017-11-19] MEDS: PANTOPRAZOLE 40 MG TABLET PO SCH (08:05)
[2017-11-19] MEDS: ANASTROZOLE 1 MG TAB PO SCH (08:05)
[2017-11-19] MEDS: ASPIRIN 81 MG PO SCH (08:05)
[2017-11-19] MEDS: amLODIPine 10 MG TAB PO SCH (08:05)
[2017-11-19 09:03] LABS: Basophils % (A) 0 %; Eosinophils # (A) 0.2 k/uL (0-0.7); Eosinophils % (A) 3 %; HCT 30.3 % (34.0-46.0); HGB 10.1 gm/dL (11.4-16.0); Lymphocytes # (A) 1.4 k/uL (1.0-4.8); Lymphocytes % (A) 17 %; MCH 29.4 pg (25.0-35.0); MCHC 33.3 g/dL (31.0-37.0); MCV 88.3 fL (80.0-100.0); Mean Platelet Volume 7.4; Monocytes # (A) 0.4 k/uL (0-1.0); Monocytes % (A) 5 %; Neutrophils # (A) 6.2 k/uL (1.3-7.7); Neutrophils % (A) 73 %; Platelet Count 241 k/uL (150-450); RBC 3.43 m/uL (3.80-5.40); RDW 12.6 % (11.5-15.5); WBC 8.5 k/uL (3.8-10.6)
[2017-11-19 09:21] LABS: Calcium 8.9 mg/dL (8.4-10.2)
[2017-11-19 11:41] VITALS: PULSE 76
[2017-11-19] MEDS ORDERED: LEVOFLOXACIN 750 MG TAB PO SCH (18:00)
--- NOTE | 2017-11-19 22:52 | P.DS ---
Providers Date of admission: 11/16/17 15:17 Expected date of discharge: 11/19/17 Attending physician: Milind Ross Primary care physician: Mandy Rivera Hospital Course: Discharge diagnosis Left lower lobe atelectasis/consolidation/infiltrate due to left lower lobe pneumonia.continued on levofloxacin Acute bronchospasm possible underlying COPD with exacerbation. Improved with breathing treatments Acute urinary tract infection. Urine culture showed no growth Sepsis secondary to above. Patient was febrile and leukocytosis Abdominal distention likely due to ascites Acute on chronic kidney disease stage III. Baseline creatinine 1.08. Currently 1.9 Breast cancer status post bilateral mastectomy currently on hormonal therapy Degenerative joint disease History of CVA/TIA. With numbness on the left side and pain in left arm and left hip GERD Hearing disorder Hyperlipidemia Hypertension Memory impairment Hypothyroidism Anxiety and depression Previous history of smoking DVT prophylaxis Hospital course Patient is a 72-year-old female with a known history of CK D stage III, bilateral breast cancer status post mastectomy and history of previous UTI, hearing disorder and multiple other medical problems including memory impairment presented emergency from for abdominal pain, bloating and cold-like symptoms. Patient states that she's had increased abdominal distention and vomiting. She states she cannot keep anything down. Patient is status post mastectomy bilaterally in February 2017. 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 Patient states even sick for last week with cough congestion. She did take Tylenol prior arrival. Denies any ear pain, sore throat. Denies any diarrhea or constipation. No dysuria no hematuria. Patient denied any abdominal pain. Chest x-ray showed left basilar subsegmental atelectasis/consolidation. Correlate for elderly infiltrate. Patient is a poor historian. Most the history was taken medical records. T-max 100.9 WBC 14.8 Creatinine 1.9. BUN 35 Influenza PCR negative UA showed large leukocyte esterase and WBC 179 5 3 2017 Patient says that her breathing status is slightly better today. Still having shortness of breath and coarse breath sounds. Continued on antibiotics and IV steroids will be added. Consider pulmonary consult if does not get better. Otherwise no fever no chills. Leukocytosis improved. 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 No nausea vomiting or abdominal pain. 11/18/2017 Patient's breathing status is much improved today. Otherwise patient is slightly febrile with T-max 100.1. Continued on current management and anticipate discharge next 24 hours. 11/19/2017 Patient did improve clinically. Renal function is much improved now. No complaints of chest pain or shortness of breath. Stable to be discharged home. Discharge physical examination was done Vital Signs - 24 hr 11/18/17 11/19/17 11/19/17 23:55 07:00 11:30 Temperature 99.3 F 98.8 F Pulse Rate 80 Pulse Rate [ 77 74 Pulse Oximetery ] Respiratory 20 20 Rate Blood Pressure 120/56 132/52 [Right Arm] O2 Sat by Pulse 97 97 Oximetry 11/19/17 11:40 Temperature Pulse Rate 76 Pulse Rate [ Pulse Oximetery ] Respiratory Rate Blood Pressure [Right Arm] O2 Sat by Pulse Oximetry Patient Condition at Discharge: Stable Plan - Discharge Summary New Discharge Prescriptions: New Levofloxacin [Levaquin] 750 mg PO Q48H #2 tab Continue Ranitidine HCl [Zantac] 150 mg PO BID Atorvastatin [Lipitor] 10 mg PO HS Aspirin EC [Ecotrin Low Dose] 81 mg PO DAILY Levothyroxine Sodium [Synthroid] 125 mcg PO DAILY amLODIPine [Norvasc] 10 mg PO DAILY FLUoxetine HCL [PROzac] 20 mg PO DAILY Anastrozole [Arimidex] 1 mg PO DAILY Ergocalciferol [Vitamin D2 (DRISDOL)] 50,000 unit PO GARCIA Fluticasone/Salmeterol [Advair 100-50 Diskus] 1 puff INHALATION RT-BID Albuterol Inhaler [Ventolin Hfa Inhaler] 2 puff INHALATION RT-QID PRN PRN Reason: Shortness Of Breath HYDROcodone/APAP 5-325MG [Leonidas 5-325] 1 tab PO Q6H PRN PRN Reason: Pain ALPRAZolam [Xanax] 0.5 mg PO DAILY PRN PRN Reason: Anxiety Discontinued Valsartan/Hydrochlorothiazide [Valsartan-Hctz 320-25 mg Tab] 1 tab PO DAILY Discharge Medication List Ranitidine HCl [Zantac] 150 mg PO BID 06/04/14 [History] Aspirin EC [Ecotrin Low Dose] 81 mg PO DAILY 01/03/17 [History] Atorvastatin [Lipitor] 10 mg PO HS 01/03/17 [History] Anastrozole [Arimidex] 1 mg PO DAILY 11/04/17 [History] Ergocalciferol [Vitamin D2 (DRISDOL)] 50,000 unit PO GARCIA 11/04/17 [History] FLUoxetine HCL [PROzac] 20 mg PO DAILY 11/04/17 [History] Levothyroxine Sodium [Synthroid] 125 mcg PO DAILY 11/04/17 [History] amLODIPine [Norvasc] 10 mg PO DAILY 11/04/17 [History] ALPRAZolam [Xanax] 0.5 mg PO DAILY PRN 11/16/17 [History] Albuterol Inhaler [Ventolin Hfa Inhaler] 2 puff INHALATION RT-QID PRN 11/16/17 [ History] Fluticasone/Salmeterol [Advair 100-50 Diskus] 1 puff INHALATION RT-BID 11/16/17 [History] HYDROcodone/APAP 5-325MG [Leonidas 5-325] 1 tab PO Q6H PRN 11/16/17 [History] Levofloxacin [Levaquin] 750 mg PO Q48H #2 tab 11/19/17 [Rx] Follow up Appointment(s)/Referral(s): Nicole Galvan MD [Primary Care Provider] - 1-2 days Patient Instructions/Handouts: Pneumonitis (DC) Discharge Disposition: HOME SELF-CARE
[2017-11-20] MEDS ORDERED: ERGOCALCIFEROL 50,000 UNIT CAP PO SCH (09:00)
== END 2017-11-19 15:54 | disposition home or self-care (01) | DRG 871 ==
LOC: EC 11:03 → 4MS4W 15:17
PROVIDERS: ADMIT Internal Medicine; ATTEND Internal Medicine
DX: A41.9 Sepsis, unspecified organism (principal); J18.9 Pneumonia, unspecified organism; N39.0 Urinary tract infection, site not specified; I69.354 Hemiplegia and hemiparesis following cerebral infarction affecting left non-dominant side; J44.0 Chronic obstructive pulmonary disease with (acute) lower respiratory infection; J44.1 Chronic obstructive pulmonary disease with (acute) exacerbation; R18.8 Other ascites; H54.62 Unqualified visual loss, left eye, normal vision right eye; H91.90 Unspecified hearing loss, unspecified ear; I12.9 Hypertensive chronic kidney disease with stage 1 through stage 4 chronic kidney disease, or unspecified chronic kidney disease; J45.909 Unspecified asthma, uncomplicated; K21.9 Gastro-esophageal reflux disease without esophagitis; M19.90 Unspecified osteoarthritis, unspecified site; N18.3 Chronic kidney disease, stage 3 (moderate); Z79.890 Hormone replacement therapy; Z79.899 Other long term (current) drug therapy; Z82.49 Family history of ischemic heart disease and other diseases of the circulatory system; Z83.3 Family history of diabetes mellitus; Z85.3 Personal history of malignant neoplasm of breast; E03.9 Hypothyroidism, unspecified; E78.5 Hyperlipidemia, unspecified; F32.9 Major depressive disorder, single episode, unspecified; F41.9 Anxiety disorder, unspecified; Z87.891 Personal history of nicotine dependence; Z90.13 Acquired absence of bilateral breasts and nipples; Z90.710 Acquired absence of both cervix and uterus; Z96.653 Presence of artificial knee joint, bilateral; Z79.82 Long term (current) use of aspirin; I69.398 Other sequelae of cerebral infarction; Z79.891 Long term (current) use of opiate analgesic; R41.3 Other amnesia
CPT/HCPCS: 36415; 71046; 74176; 76700; 80048; 80053; 81001; 82150; 83605; 83690; 85025; 87040; 87086; 87502; 94640; 94760; 96361; 96365; 99285

== ENCOUNTER → 2018-01-11 | Outpatient (CLI) | payer MEDICARE ==
--- NOTE | 2018-01-11 15:36 | US ---
EXAMINATION TYPE: US venous doppler duplex UE LT DATE OF EXAM: 01/11/2018 COMPARISON: NONE CLINICAL HISTORY: M79.602 pain in left arm R22.32 swelling left arm. pain in left axilla and upper ar m since bilateral mastectomy SIDE PERFORMED: Left Left Arm: Appears negative for DVT *tech impression given to office at 3:00pm Grayscale, color doppler, spectral doppler imaging performed of the deep veins of the left upper extr emity. There is normal flow, compressibility and vascular waveforms. IMPRESSION: No ultrasound evidence for acute deep or superficial venous thrombosis in the left upper extremity on images saved.
== END | disposition home or self-care (01) ==
LOC: RADUSWWP 14:26
PROVIDERS: ATTEND Internal Medicine
DX: R22.32 Localized swelling, mass and lump, left upper limb (principal); M79.602 Pain in left arm; Z90.13 Acquired absence of bilateral breasts and nipples

== ENCOUNTER 2018-01-25 06:27 | Day surgery (SDC) | payer MEDICARE ==
[2018-01-23 14:36] VITALS: BMI 33.5
[~2018-01-25 06:27] MED LIST changes: -HEPARIN SODIUM,PORCINE 5,000 UNIT/ML 1 ML VIAL SQ ONE; -HYDROmorphone 1 MG/ML 1 ML SYRINGE IVP PRN; +LACTATED RINGERS 1,000 ML IV SCH; -ONDANSETRON 4 MG/2 ML VIAL IVP ONE; -Pre Op ABX Message 1 EACH MISC MISCELLANE ONE
[2018-01-25] MEDS ORDERED: LACTATED RINGERS 1,000 ML IV ONE ×3 (07:01)
[2018-01-25 07:13] VITALS: TEMP 98.4
[2018-01-25 07:31] LABS: Glucose,Whole Blood 154 mg/dL (75-99)
--- NOTE | 2018-01-25 07:39 | P.GSHP ---
History of Present Illness H&P Date: 01/25/18 CHIEF COMPLAINT: Colon screen HISTORY OF PRESENT ILLNESS: The patient is a 72-year-old female who presents for colon screen. Lower endoscopy was offered for further evaluation and management. PAST MEDICAL HISTORY: Please see list. PAST SURGICAL HISTORY: Please see list. MEDICATIONS: Please see list. ALLERGIES: Please see list. SOCIAL HISTORY: No illicit drug use FAMILY HISTORY: No reports of Crohn disease or ulcerative colitis. REVIEW OF ORGAN SYSTEMS: CONSTITUTIONAL: No reports of fevers or chills. PHYSICAL EXAM: VITAL SIGNS: Stable GENERAL: Well-developed pleasant in no acute distress. HEENT: No scleral icterus. Extraocular movements grossly intact. Moist buccal mucosa. NECK: Supple without lymphadenopathy. CHEST: Unlabored respirations. Equal bilateral excursions. CARDIOVASCULAR: Regular rate and rhythm. Distal 2+ pulses. ABDOMEN: Soft, nontender, nondistended. MUSCULOSKELETAL: No clubbing, cyanosis, or edema. ASSESSMENT: 1. Colon screen. PLAN: 1. Recommend proceeding with a lower endoscopy Past Medical History Past Medical History: Asthma, Cancer, CVA/TIA, Eye Disorder, GERD/Reflux, Hearing Disorder / Deafness, Hyperlipidemia, Hypertension, Memory Impairment, Musculoskeletal Disorder, Syncope, Thyroid Disorder Additional Past Medical History / Comment(s): Hx [place]ASIA Breast Cancer, no radiation or chemotherapy; EDEMA LT ARM. CVA - C/O NUMBNESS LT SIDE, PAIN IN LT ARM, LT HIP. NOT TO USE LT ARM D/T PREV SURGERY.DDD; Constipation History of Any Multi-Drug Resistant Organisms: None Reported Past Surgical History: Hysterectomy, Joint Replacement Additional Past Surgical History / Comment(s): [place]ASIA knee replacment; Double mastectomy 03/13/17 Past Anesthesia/Blood Transfusion Reactions: No Reported Reaction Smoking Status: Former smoker - Past Family History Father Family Medical History: Cancer, CVA/TIA, Diabetes Mellitus, Myocardial Infarction ([place]) Mother Family Medical History: Myocardial Infarction ([place]) Medications and Allergies Home Medications Medication Instructions Recorded Confirmed Type Ranitidine HCl [Zantac] 150 mg PO BID 06/04/14 01/25/18 History Aspirin EC [Ecotrin Low Dose] 81 mg PO DAILY 01/03/17 01/23/18 History Atorvastatin [Lipitor] 10 mg PO HS 01/03/17 01/25/18 History Anastrozole [Arimidex] 1 mg PO DAILY 11/04/17 01/25/18 History Ergocalciferol [Vitamin D2 50,000 unit PO GARCIA 11/04/17 01/25/18 History (DRISDOL)] FLUoxetine HCL [PROzac] 20 mg PO DAILY 11/04/17 01/25/18 History Levothyroxine Sodium [Synthroid] 125 mcg PO DAILY 11/04/17 01/25/18 History amLODIPine [Norvasc] 10 mg PO DAILY 11/04/17 01/25/18 History ALPRAZolam [Xanax] 0.5 mg PO DAILY PRN 11/16/17 01/25/18 History Albuterol Inhaler [Ventolin Hfa 2 puff INHALATION RT-QID PRN 11/16/17 01/25/18 History Inhaler] Fluticasone/Salmeterol [Advair 1 puff INHALATION RT-BID 11/16/17 01/25/18 History 100-50 Diskus] Loratadine [Claritin] 10 mg PO DAILY 01/23/18 01/25/18 History Valsartan/Hydrochlorothiazide 1 each PO DAILY 01/23/18 01/25/18 History [Valsartan-Hctz 320-25 mg Tab] Allergies Allergy/AdvReac Type Severity Reaction Status Date / Time No Known Allergies Allergy Verified 01/25/18 07:15 Surgical - Exam Vital Signs Temp Pulse Resp Pulse Ox 98.4 F 81 16 97 01/25/18 07:12 01/25/18 07:12 01/25/18 07:12 01/25/18 07:12 Results - Labs Abnormal Lab Results - Last 24 Hours (Table) 01/25/18 Range/Units 07:23 POC Glucose (mg/dL) 154 H (75-99) mg/dL
[2018-01-25] MEDS ORDERED: LIDOCAINE 1% INJ 10MG/ML (20 ML MDV) ONE (07:55)
[2018-01-25] MEDS ORDERED: PROPOFOL 10 MG/ML 20 ML VIAL IV ONE (07:55)
--- NOTE | 2018-01-25 08:24 | P.PCN ---
Date of Procedure: 01/25/18 Description of Procedure: PREOPERATIVE DIAGNOSIS: Colonoscopy screening POSTOPERATIVE DIAGNOSIS: Colonoscopy screening Tubular adenomas, sigmoid colon External hemorrhoids, grade 2. OPERATION: Colonoscopy to the ileocecal valve and appendiceal orifice. Colonoscopy with cold forceps biopsies. SURGEON: Jackie Sawyer MD. ANESTHESIA: MAC. INDICATIONS: The patient is a 72-year-old female who presents for colonoscopy screening. Benefits and risks were described and informed consent was obtained. DESCRIPTION OF PROCEDURE: The patient had undergone Gatorade, MiraLAX and Dulcolax prep. She had been brought into the operating room and laid in the left lateral decubitus position. After adequate intravenous sedation, the rectum was examined with 2% lidocaine jelly. External hemorrhoids were encountered. The rectal tone was within normal limits. No lesions were palpated in the rectal vault. An Olympus colonoscope was advanced until the ileocecal valve and appendiceal orifice were clearly viewed. The prep was fair with visualization of the mucosal folds. The scope was removed with visualization of each mucosal fold. No scattered diverticulosis was encountered. She had moderate redundant sigmoid colon. Colonic polyps were found and cold forcep biopsy or snare polypectomy. No evidence of focal colitis was found. Retroflexion of the scope demonstrated grade 1 internal hemorrhoids without active bleeding or inflammation. The colon was desufflated. The patient had tolerated the procedure well. Withdrawal time was over 6 minutes. FINDINGS: Internal hemorrhoids, grade 1 External hemorrhoids, grade 2. No arteriovenous malformations. No diffuse sigmoid diverticulosis Moderately redundant sigmoid colon Removal of 1 polyp: - Cold forceps biopsy at 10 cm from the anal verge, 4 mm polyp, sigmoid colon No focal colitis. RECOMMENDATIONS: Recommend repeat colonoscopy, 5 years, 2022. Plan - Discharge Summary New Discharge Prescriptions: No Action Ranitidine HCl [Zantac] 150 mg PO BID Atorvastatin [Lipitor] 10 mg PO HS Aspirin EC [Ecotrin Low Dose] 81 mg PO DAILY Levothyroxine Sodium [Synthroid] 125 mcg PO DAILY amLODIPine [Norvasc] 10 mg PO DAILY FLUoxetine HCL [PROzac] 20 mg PO DAILY Anastrozole [Arimidex] 1 mg PO DAILY Ergocalciferol [Vitamin D2 (DRISDOL)] 50,000 unit PO GARCIA Fluticasone/Salmeterol [Advair 100-50 Diskus] 1 puff INHALATION RT-BID Albuterol Inhaler [Ventolin Hfa Inhaler] 2 puff INHALATION RT-QID PRN PRN Reason: Shortness Of Breath ALPRAZolam [Xanax] 0.5 mg PO DAILY PRN PRN Reason: Anxiety Loratadine [Claritin] 10 mg PO DAILY Valsartan/Hydrochlorothiazide [Valsartan-Hctz 320-25 mg Tab] 1 each PO DAILY Discharge Medication List Ranitidine HCl [Zantac] 150 mg PO BID 06/04/14 [History] Aspirin EC [Ecotrin Low Dose] 81 mg PO DAILY 01/03/17 [History] Atorvastatin [Lipitor] 10 mg PO HS 01/03/17 [History] Anastrozole [Arimidex] 1 mg PO DAILY 11/04/17 [History] Ergocalciferol [Vitamin D2 (DRISDOL)] 50,000 unit PO GARCIA 11/04/17 [History] FLUoxetine HCL [PROzac] 20 mg PO DAILY 11/04/17 [History] Levothyroxine Sodium [Synthroid] 125 mcg PO DAILY 11/04/17 [History] amLODIPine [Norvasc] 10 mg PO DAILY 11/04/17 [History] ALPRAZolam [Xanax] 0.5 mg PO DAILY PRN 11/16/17 [History] Albuterol Inhaler [Ventolin Hfa Inhaler] 2 puff INHALATION RT-QID PRN 11/16/17 [ History] Fluticasone/Salmeterol [Advair 100-50 Diskus] 1 puff INHALATION RT-BID 11/16/17 [History] Loratadine [Claritin] 10 mg PO DAILY 01/23/18 [History] Valsartan/Hydrochlorothiazide [Valsartan-Hctz 320-25 mg Tab] 1 each PO DAILY 04/04 [History]
[2018-01-25 08:25] VITALS: RESP 18
[2018-01-25 09:31] VITALS: BP 140/74; PULSE 74
== END 2018-01-25 09:40 | disposition home or self-care (01) ==
LOC: ORWHC2ENDO 06:27
PROVIDERS: ATTEND Surgery Plastic and Reconstructive Surgery
DX: Z12.11 Encounter for screening for malignant neoplasm of colon (principal); K63.5 Polyp of colon; K64.0 First degree hemorrhoids; K64.4 Residual hemorrhoidal skin tags; Q43.8 Other specified congenital malformations of intestine; J45.909 Unspecified asthma, uncomplicated; K21.9 Gastro-esophageal reflux disease without esophagitis; H57.9 Unspecified disorder of eye and adnexa; H91.90 Unspecified hearing loss, unspecified ear; E78.5 Hyperlipidemia, unspecified; I10 Essential (primary) hypertension; R41.3 Other amnesia; E07.9 Disorder of thyroid, unspecified; I69.398 Other sequelae of cerebral infarction; R20.0 Anesthesia of skin; M79.602 Pain in left arm; M25.552 Pain in left hip; F32.9 Major depressive disorder, single episode, unspecified; F41.9 Anxiety disorder, unspecified; F03.90 Unspecified dementia, unspecified severity, without behavioral disturbance, psychotic disturbance, mood disturbance, and anxiety; Z90.13 Acquired absence of bilateral breasts and nipples; Z85.3 Personal history of malignant neoplasm of breast; Z79.82 Long term (current) use of aspirin; Z79.890 Hormone replacement therapy; Z79.51 Long term (current) use of inhaled steroids; Z79.899 Other long term (current) drug therapy; Z87.891 Personal history of nicotine dependence
CPT/HCPCS: 88305; 45380; J2001; J2704

== ENCOUNTER → 2018-01-26 | Outpatient (CLI) | payer MEDICARE ==
[2018-01-26 11:58] VITALS: BP 98/64; PULSE 68; RESP 18; TEMP 98.1; BMI 32.8
--- NOTE | 2018-01-26 12:59 | P.GSHP ---
History of Present Illness H&P Date: 01/26/18 The patient is a 72-year-old white female who is status post bilateral mastectomy performed 03/14/17. Her pathology revealed on the right side a [id number] lesion, and the left side a T2 possible T4 related to skin involvement N2 lesion. Metastasis were noted in 4 of 9 axillary lymph nodes on the left. On the right side on permanent section the sentinel node was noted to have micrometastatic disease. The patient did not have radiation,or chemotherapy. She is on Arimidex. The patient at this time complains of left arm swelling and pain with motion. Family history: 1. sister of cancer uncertain of the type 2. Brother of cancer uncertain of the type Menarche: 12 Pregnancies: In early 30s two, patient did not breast-feed Menopause: 50 Hormones: Negative control pills: 12 years Past surgical history: 1. Bilateral mastectomies 2. Bilateral knee surgery Medical history: 1. Dementia 2. Intermittent diarrhea constipation, colonoscopy done yesterday Social history: Smoking: Negative stopped 8 years ago Alcohol: Negative Drugs: Negative - Constitutional Constitutional: Denies chills, Denies fever - EENT Eyes: denies blurred vision, denies pain Ears: bilateral: decreased hearing, deny: tinnitus Ears, nose, mouth and throat: Denies headache, Denies sore throat - Breasts Breasts: bilateral: as per HPI - Cardiovascular Cardiovascular: Reports shortness of breath, Denies chest pain - Respiratory Respiratory: Denies cough, Denies 7 - Gastrointestinal Gastrointestinal: Reports constipation, Reports diarrhea, Denies abdominal pain , Denies nausea, Denies vomiting - Genitourinary (Female) Genitourinary: Denies dysuria, Denies hematuria - Menstruation Menstruation: Reports postmenopausal - Musculoskeletal Musculoskeletal: Reports as per HPI - Integumentary Integumentary: Denies pruritus, Denies rash - Neurological Comment: Numbness and tingling in the left arm Neurological: Reports numbness, Denies weakness - Psychiatric Comment: dementia Psychiatric: Reports anxiety, Denies depression - Endocrine Endocrine: Denies fatigue, Denies weight change - Hematologic/Lymphatic Comment: Low-dose aspirin - Allergic/Immunologic Allergic/Immunologic: Reports seasonal allergies Past Medical History Past Medical History: Asthma, Cancer, CVA/TIA, Eye Disorder, GERD/Reflux, Hearing Disorder / Deafness, Hyperlipidemia, Hypertension, Memory Impairment, Musculoskeletal Disorder, Syncope, Thyroid Disorder Additional Past Medical History / Comment(s): Hx [place]AS[place] Breast Cancer, no radiation or chemotherapy; EDEMA LT ARM. CVA - C/O NUMBNESS LT SIDE, PAIN IN LT ARM, LT HIP. NOT TO USE LT ARM D/T PREV SURGERY.DDD; Constipation History of Any Multi-Drug Resistant Organisms: None Reported Past Surgical History: Hysterectomy, Joint Replacement Additional Past Surgical History / Comment(s): [place]AS[place] knee replacment; Double mastectomy 03/13/17 Past Anesthesia/Blood Transfusion Reactions: No Reported Reaction Past Psychological History: Anxiety, Depression Additional Psychological History / Comment(s): Patient poor historian, unable to remember details of recent events. Smoking Status: Former smoker Past Alcohol Use History: None Reported Additional Past Alcohol Use History / Comment(s): started smoking age 20, smoked 1ppd, quit 2009 Past Drug Use History: None Reported - Past Family History Father Family Medical History: Cancer, CVA/TIA, Diabetes Mellitus, Myocardial Infarction ([place]) Mother Family Medical History: Myocardial Infarction ([place]) Medications and Allergies Home Medications Medication Instructions Recorded Confirmed Type Ranitidine HCl [Zantac] 150 mg PO BID 06/04/14 01/26/18 History Aspirin EC [Ecotrin Low Dose] 81 mg PO DAILY 01/03/17 01/23/18 History Atorvastatin [Lipitor] 10 mg PO HS 01/03/17 01/26/18 History Anastrozole [Arimidex] 1 mg PO DAILY 11/04/17 01/25/18 History Ergocalciferol [Vitamin D2 50,000 unit PO GARCIA 11/04/17 01/26/18 History (AVIVA)] FLUoxetine HCL [PROzac] 20 mg PO DAILY 11/04/17 01/26/18 History Levothyroxine Sodium [Synthroid] 125 mcg PO DAILY 11/04/17 01/26/18 History amLODIPine [Norvasc] 10 mg PO DAILY 11/04/17 01/26/18 History ALPRAZolam [Xanax] 0.5 mg PO DAILY PRN 11/16/17 01/25/18 History Albuterol Inhaler [Ventolin Hfa 2 puff INHALATION RT-QID PRN 11/16/17 01/25/18 History Inhaler] Fluticasone/Salmeterol [Advair 1 puff INHALATION RT-BID 11/16/17 01/26/18 History 100-50 Diskus] Valsartan/Hydrochlorothiazide 1 each PO DAILY 01/23/18 01/26/18 History [Valsartan-Hctz 320-25 mg Tab] Allergies Allergy/AdvReac Type Severity Reaction Status Date / Time No Known Allergies Allergy Verified 01/25/18 07:15 Surgical - Exam Vital Signs Temp Pulse Resp BP 98.1 F 68 18 98/64 01/26/18 11:48 01/26/18 11:48 01/26/18 11:48 01/26/18 11:48 - General obese - Eyes normal ocular movement - ENT no hearing loss, no congestion - Neck no masses, trachea midline - Respiratory normal expansion, normal respiratory effort, clear to percussion right: wheezing (on deep inspiration) - Cardiovascular Rhythm: regular Heart Sounds: normal: S1, S2 - Abdomen Abdomen: soft, non tender, no guarding, no rigid, no rebound - Neurologic dementia no disoriented, no combative - Musculoskeletal Mild limited range of motion left upper extremity normal gait - Psychiatric dementia, acute care nursing assistant from [facility] present with patient Examination of mastectomy sites: Right chest wall: No evidence of recurrent disease Right axilla: No adenopathy of concern Left chest wall: No recurrent disease on chest wall status post mastectomy Left axilla: No adenopathy of concern Measurement of bilateral upper extremities reveals the right upper arm to be approximately 36 cm, the left at the same location 39.5 cm Assessment and Plan Assessment: Impression: 1. Dementia 2. Bilateral breast cancer on arimidex 3. Swelling left arm 4. Inspiratory wheezing/asthma, COPD 5. Mild limited range of motion to left upper extremity 6. Constipation/colonoscopy done yesterday 7. Hypothyroidism 8. Anxiety 9. High cholesterol Plan: 1. No evidence of recurrent cancer at this time 2. Medical management of medical problems 3. Follow-up with medical oncology patient on Arimidex 4. Lymphedema appointment with lymphedema specialist and physical therapy 5. Constipation colonoscopy just done will follow with endoscopist 6. Follow-up here in 6 months Cc: Dr. Galvan, Tin Metcalf
== END | disposition home or self-care (01) ==
LOC: WWCWWP 11:00
PROVIDERS: ATTEND Surgery
DX: Z53.9 Procedure and treatment not carried out, unspecified reason (principal)

== ENCOUNTER 2018-10-19 15:38 | Observation (INO) | payer MEDICARE ==
[2018-10-19] MEDS ORDERED: SODIUM CHLORIDE 0.9% 1,000 ML IV STA (16:35)
--- NOTE | 2018-10-19 17:25 | ED ---
GI Bleed HPI - General Chief complaint: GI Bleed Stated complaint: JUNO, black stool Time Seen by Provider: 10/19/18 16:22 Source: patient, family, RN notes reviewed, old records reviewed Mode of arrival: wheelchair Limitations: no limitations - History of Present Illness Initial comments: This is a 73-year-old female the ER for evaluation. Patient's any say for evaluation regards to weakness. Patient has been persistently weak decreased appetite nausea and vomiting, can't keep anything down. She does admit to blood in her stools. Patient has history of breast CA with mastectomy, not Going through any treatment. No fevers that she knows of. No recent travel history no sick contacts. MD complaint: melena -: unknown Radiation: none Quality: cramping Consistency: intermittent Improves with: none Worsens with: none Associated Symptoms: abdominal pain, nausea, vomiting, weakness Treatments Prior to Arrival: none - Related Data Home Medications Medication Instructions Recorded Confirmed Ranitidine HCl [Zantac] 150 mg PO BID 06/04/14 10/19/18 Aspirin EC [Ecotrin Low Dose] 81 mg PO DAILY 01/03/17 10/19/18 Atorvastatin [Lipitor] 10 mg PO HS 01/03/17 10/19/18 Anastrozole [Arimidex] 1 mg PO DAILY 11/04/17 10/19/18 Ergocalciferol [Vitamin D2 50,000 unit PO GARCIA 11/04/17 10/19/18 (DRISDOL)] FLUoxetine HCL [PROzac] 20 mg PO DAILY 11/04/17 10/19/18 Levothyroxine Sodium [Synthroid] 125 mcg PO DAILY 11/04/17 10/19/18 amLODIPine [Norvasc] 10 mg PO DAILY 11/04/17 10/19/18 Valsartan/Hydrochlorothiazide 1 tab PO DAILY 01/23/18 10/19/18 [Valsartan-Hctz 320-25 mg Tab] Loratadine [Claritin] 10 mg PO DAILY 01/26/18 10/19/18 ALPRAZolam [Xanax] 0.25 mg PO DAILY 10/19/18 10/19/18 Albuterol Inhaler [Ventolin Hfa 2 puff INHALATION RT-Q6H PRN 10/19/18 10/19/18 Inhaler] Ferrous Sulfate [Feosol] 325 mg PO DAILY 10/19/18 10/19/18 Folic Acid 1 mg PO DAILY 10/19/18 10/19/18 Allergies Allergy/AdvReac Type Severity Reaction Status Date / Time No Known Allergies Allergy Verified 10/19/18 16:49 Review of Systems ROS Statement: Those systems with pertinent positive or pertinent negative responses have been documented in the HPI. ROS Other: All systems not noted in ROS Statement are negative. Past Medical History Past Medical History: Asthma, Cancer, CVA/TIA, Eye Disorder, GERD/Reflux, Hearing Disorder / Deafness, Hyperlipidemia, Hypertension, Memory Impairment, Musculoskeletal Disorder, Syncope, Thyroid Disorder Additional Past Medical History / Comment(s): Hx NYASIA Breast Cancer, no radiation or chemotherapy; EDEMA LT ARM. CVA - C/O NUMBNESS LT SIDE, PAIN IN LT ARM, LT HIP. NOT TO USE LT ARM D/T PREV SURGERY.DDD; Constipation History of Any Multi-Drug Resistant Organisms: None Reported Past Surgical History: Hysterectomy, Joint Replacement Additional Past Surgical History / Comment(s): NYASIA knee replacment; Double mastectomy 03/13/17 Past Anesthesia/Blood Transfusion Reactions: No Reported Reaction Past Psychological History: Anxiety, Depression Smoking Status: Former smoker Past Alcohol Use History: None Reported Past Drug Use History: None Reported - Past Family History Father Family Medical History: Cancer, CVA/TIA, Diabetes Mellitus, Myocardial Infarction ([place]) Mother Family Medical History: Myocardial Infarction ([place]) General Exam Limitations: no limitations General appearance: alert, lethargic Head exam: Present: atraumatic, normocephalic, normal inspection Eye exam: Present: normal appearance, PERRL, EOMI. Absent: scleral icterus, conjunctival injection, periorbital swelling ENT exam: Present: normal exam, mucous membranes moist Neck exam: Present: normal inspection. Absent: tenderness, meningismus, lymphadenopathy Respiratory exam: Present: normal lung sounds bilaterally. Absent: respiratory distress, wheezes, rales, rhonchi, stridor Cardiovascular Exam: Present: regular rate, normal rhythm, normal heart sounds. Absent: systolic murmur, diastolic murmur, rubs, gallop, clicks GI/Abdominal exam: Present: soft, normal bowel sounds. Absent: distended, tenderness, guarding, rebound, rigid Extremities exam: Present: normal inspection, full ROM, normal capillary refill. Absent: tenderness, pedal edema, joint swelling, calf tenderness Back exam: Present: normal inspection Neurological exam: Present: alert, oriented X3, CN II-XII intact Psychiatric exam: Present: normal affect, normal mood Skin exam: Present: warm, dry, intact, normal color. Absent: rash Course Vital Signs 10/19/18 10/19/18 15:42 17:41 Temperature 97.9 F Pulse Rate 87 68 Respiratory 18 18 Rate Blood Pressure 110/69 132/68 O2 Sat by Pulse 99 100 Oximetry - Reevaluation(s) Reevaluation #1: 10/19/18 19:49 Medical record reviewed including prior lab values Reevaluation #2: 10/19/18 19:49 Patient still feels very weak Medical Decision Making - Medical Decision Making 73 female the ER with dark stools, acute renal failure and dehydration. Abdominal pain, - Lab Data Result diagrams: 10/19/18 13:35 10/19/18 13:35 Lab Results 10/19/18 10/19/18 10/19/18 Range/Units 13:35 13:35 13:35 WBC 12.6 H (3.8-10.6) k/uL RBC 3.65 L (3.80-5.40) m/uL Hgb 10.6 L (11.4-16.0) gm/dL Hct 31.8 L (34.0-46.0) % MCV 87.1 (80.0-100.0) fL MCH 28.9 (25.0-35.0) pg MCHC 33.2 (31.0-37.0) g/dL RDW 14.2 (11.5-15.5) % Plt Count 306 (150-450) k/uL Neutrophils % 80 % Lymphocytes % 9 % Monocytes % 7 % Eosinophils % 1 % Basophils % 0 % Neutrophils # 10.1 H (1.3-7.7) k/uL Lymphocytes # 1.2 (1.0-4.8) k/uL Monocytes # 0.9 (0-1.0) k/uL Eosinophils # 0.1 (0-0.7) k/uL Basophils # 0.0 (0-0.2) k/uL PT (9.0-12.0) sec INR (<1.2) APTT (22.0-30.0) sec Sodium 136 L (137-145) mmol/L Potassium 4.0 (3.5-5.1) mmol/L Chloride 106 (98-107) mmol/L Carbon Dioxide 19 L (22-30) mmol/L Anion Gap 11 mmol/L BUN 42 H (7-17) mg/dL Creatinine 2.28 H (0.52-1.04) mg/dL Est GFR (CKD-EPI)AfAm 24 (>60 ml/min/1.73 sqM) Est GFR (CKD-EPI)NonAf 21 (>60 ml/min/1.73 sqM) Glucose 125 H (74-99) mg/dL Plasma Lactic Acid Júnior 1.1 (0.7-2.0) mmol/L Calcium 9.5 (8.4-10.2) mg/dL Phosphorus 3.8 (2.5-4.5) mg/dL Magnesium 1.6 (1.6-2.3) mg/dL Total Bilirubin 0.5 (0.2-1.3) mg/dL AST 25 (14-36) U/L ALT 27 (9-52) U/L Alkaline Phosphatase 116 (38-126) U/L Troponin I (0.000-0.034) ng/mL Total Protein 6.7 (6.3-8.2) g/dL Albumin 3.8 (3.5-5.0) g/dL TSH 0.068 L (0.465-4.680) mIU/L Influenza Type A RNA (Not Detectd) Influenza Type B (PCR) (Not Detectd) 10/19/18 10/19/18 10/19/18 Range/Units 13:35 13:35 17:20 WBC (3.8-10.6) k/uL RBC (3.80-5.40) m/uL Hgb (11.4-16.0) gm/dL Hct (34.0-46.0) % MCV (80.0-100.0) fL MCH (25.0-35.0) pg MCHC (31.0-37.0) g/dL RDW (11.5-15.5) % Plt Count (150-450) k/uL Neutrophils % % Lymphocytes % % Monocytes % % Eosinophils % % Basophils % % Neutrophils # (1.3-7.7) k/uL Lymphocytes # (1.0-4.8) k/uL Monocytes # (0-1.0) k/uL Eosinophils # (0-0.7) k/uL Basophils # (0-0.2) k/uL PT 9.9 (9.0-12.0) sec INR 0.9 (<1.2) APTT 23.9 (22.0-30.0) sec Sodium (137-145) mmol/L Potassium (3.5-5.1) mmol/L Chloride (98-107) mmol/L Carbon Dioxide (22-30) mmol/L Anion Gap mmol/L BUN (7-17) mg/dL Creatinine (0.52-1.04) mg/dL Est GFR (CKD-EPI)AfAm (>60 ml/min/1.73 sqM) Est GFR (CKD-EPI)NonAf (>60 ml/min/1.73 sqM) Glucose (74-99) mg/dL Plasma Lactic Acid Júnior (0.7-2.0) mmol/L Calcium (8.4-10.2) mg/dL Phosphorus (2.5-4.5) mg/dL Magnesium (1.6-2.3) mg/dL Total Bilirubin (0.2-1.3) mg/dL AST (14-36) U/L ALT (9-52) U/L Alkaline Phosphatase (38-126) U/L Troponin I <0.012 (0.000-0.034) ng/mL Total Protein (6.3-8.2) g/dL Albumin (3.5-5.0) g/dL TSH (0.465-4.680) mIU/L Influenza Type A RNA Not Detected (Not Detectd) Influenza Type B (PCR) Not Detected (Not Detectd) - EKG Data -: EKG Interpreted by Me (EKG shows normal sinus rhythm rate of 70, TX 136, QRS 76, QTc 451) Disposition Clinical Impression: Gastrointestinal hemorrhage, Dizziness, Abdominal pain, Weakness, ARF (acute renal failure) Disposition: ADMITTED IP TO THIS HOSP Condition: Fair Is patient prescribed a controlled substance at d/c from ED?: No Referrals: Hernan Cruz MD [Primary Care Provider] - 1-2 days
[2018-10-19 17:48] LABS: HCT 31.8 % (34.0-46.0); HGB 10.6 gm/dL (11.4-16.0); MCH 28.9 pg (25.0-35.0); MCHC 33.2 g/dL (31.0-37.0); MCV 87.1 fL (80.0-100.0); RBC 3.65 m/uL (3.80-5.40); RDW 14.2 % (11.5-15.5); WBC 12.6 k/uL (3.8-10.6)
[2018-10-19 17:49] LABS: Basophils % (A) 0 %; Eosinophils # (A) 0.1 k/uL (0-0.7); Eosinophils % (A) 1 %; Lymphocytes # (A) 1.2 k/uL (1.0-4.8); Lymphocytes % (A) 9 %; Mean Platelet Volume 8.2; Monocytes # (A) 0.9 k/uL (0-1.0); Monocytes % (A) 7 %; Neutrophils # (A) 10.1 k/uL (1.3-7.7); Neutrophils % (A) 80 %; Platelet Count 306 k/uL (150-450)
[2018-10-19 17:53] LABS: Albumin 3.8 g/dL (3.5-5.0); Calcium 9.5 mg/dL (8.4-10.2); Magnesium 1.6 mg/dL (1.6-2.3); Phosphorus 3.8 mg/dL (2.5-4.5); Total Bilirubin 0.5 mg/dL (0.2-1.3); Total Protein 6.7 g/dL (6.3-8.2)
[2018-10-19 17:59] LABS: INR 0.9 (<1.2); Partial Thromboplastin Time 23.9 sec (22.0-30.0); Prothrombin Time 9.9 sec (9.0-12.0)
--- NOTE | 2018-10-19 19:33 | CT ---
EXAMINATION TYPE: CT abdomen pelvis wo con DATE OF EXAM: 10/19/2018 HISTORY: JUNO, black stool, lethargic TECHNIQUE: Helical acquisition of images was performed from the lung bases through the pelvis. CT DLP: 715.3 mGycm. Automated exposure control for dose reduction was used. COMPARISON: 11/16/2017 FINDINGS: Patient motion artifact noted on all images. Within the limitations of noncontrast CT, the following observations are made: LUNG BASES: No significant abnormality is appreciated. LIVER/GB: No significant abnormality is appreciated. PANCREAS: No significant abnormality is seen. SPLEEN: No significant abnormality is seen. ADRENALS: No significant abnormality is seen. KIDNEYS: No significant abnormality is seen. FREE AIR: No free air is visualized RETROPERITONEAL ADENOPATHY: None visualized REPRODUCTIVE ORGANS: No significant abnormality is seen URINARY BLADDER: No significant abnormality is seen. PELVIC ADENOPATHY: None visualized. OSSEOUS STRUCTURES: No significant abnormality is seen. BOWEL: No acute findings. The stomach and duodenum have normal appearance, as is the jejunum and ileu m. The colon is nearly entirely collapsed. IMPRESSION: NO ACUTE PROCESS. Incidental: Nonaneurysmal atherosclerotic intimal calcifications are seen throughout the visualized arterial anatomy, including the coronary arteries.
[2018-10-19] MEDS ORDERED: PANTOPRAZOLE 40 MG/10 ML VIAL IVP STA (19:44)
[2018-10-19] MEDS ORDERED: SODIUM CHLORIDE 0.9% 1,000 ML IV ONE (19:44)
[2018-10-19] MEDS ORDERED: MORPHINE SULFATE 4 MG/ML SYRINGE IVP PRN (19:44)
[2018-10-19] MEDS ORDERED: MORPHINE SULFATE 4 MG/ML SYRINGE IVP STA (19:44)
[2018-10-19] MEDS ORDERED: ONDANSETRON 4 MG/2 ML VIAL IVP STA (19:44)
[2018-10-19] MEDS ORDERED: ONDANSETRON 4 MG/2 ML VIAL IVP PRN (19:44)
[2018-10-19 20:28] LABS: Appearance,Urine Clear (Clear); Bilirubin,Urine Negative (Negative); Blood,Urine Negative (Negative); Color,Urine Yellow; Glucose,Urine (UA) Negative (Negative); Ketones,Urine Negative (Negative); Leukocyte Esterase,Urine Negative (Negative); Nitrite,Urine Negative (Negative); Protein,Urine Trace (Negative); Urobilinogen,Urine <2.0 mg/dL (<2.0)
[2018-10-19 23:02] VITALS: BMI 35.8
[2018-10-19] MEDS ORDERED: ALBUTEROL NEBULIZED 2.5 MG/3 ML INHALATION PRN (23:20)
--- NOTE | 2018-10-19 23:26 | P.HPIM ---
History of Present Illness H&P Date: 10/19/18 Patient is a 73-year-old female with a PMH of Alzheimer's, breast cancer status post mastectomy in February 2017, HTN, HLD, hypothyroidism, and asthma w/ a state appointed legal guardian (due to dementia) was sent in from [facility] due to multiple complaints. The history was supplemented by her daughter and son-in-laws at the bedside along with her son Gerardo on the phone. The family reports that the patient has been having nausea with vomiting for the past several days to weeks along with noticing abdominal distention with small amounts of black tarry stools. The patient also complained of occasional chest pain and shortness of breath. Earlier today, the patient had become more lethargic and had multiple near syncopal episodes. The family reports the patient normally walks independently but has been mostly bedbound for the past 3-4 days. The patient also reported noticing that her abdomen has gradually increased in size since her mastectomy in 2016. She otherwise denied fever, chills, cough, diarrhea, or sick contacts. The patient underwent an extensive evaluation in the emergency room with WBC count 12.6, hemoglobin 10.6, BUN 42, creatinine 2.28, up from baseline of 1.5, Troponin < 0.012, and TSH low at 0.068. The patient's UA was negative for infection. Influenza testing was negative. A noncontrast abdominal CT reported no acute abnormalities. EKG as reviewed by me revealed a normal sinus rhythm at 78 bpm. The patient was subsequently admitted to the medicine service for MYESHA on CKD. Review of Systems Pertinent positives and negatives as discussed in HPI, a complete review of systems was performed and all other systems are negative. Past Medical History Past Medical History: Asthma, Cancer, CVA/TIA, Eye Disorder, GERD/Reflux, Hearing Disorder / Deafness, Hyperlipidemia, Hypertension, Memory Impairment, Musculoskeletal Disorder, Syncope, Thyroid Disorder Additional Past Medical History / Comment(s): Hx NYASIA Breast Cancer, no radiation or chemotherapy; EDEMA LT ARM. CVA - C/O NUMBNESS LT SIDE, PAIN IN LT ARM, LT HIP. NOT TO USE LT ARM D/T PREV SURGERY.DDD; Constipation History of Any Multi-Drug Resistant Organisms: None Reported Past Surgical History: Hysterectomy, Joint Replacement Additional Past Surgical History / Comment(s): NYASIA knee replacment; Double mastectomy 03/13/17 Past Anesthesia/Blood Transfusion Reactions: No Reported Reaction Past Psychological History: Anxiety, Depression Smoking Status: Former smoker Past Alcohol Use History: None Reported Past Drug Use History: None Reported - Past Family History Father Family Medical History: Cancer, CVA/TIA, Diabetes Mellitus, Myocardial Infarction ([place]) Mother Family Medical History: Myocardial Infarction ([place]) Medications and Allergies Home Medications Medication Instructions Recorded Confirmed Type Ranitidine HCl [Zantac] 150 mg PO BID 06/04/14 10/19/18 History Aspirin EC [Ecotrin Low Dose] 81 mg PO DAILY 01/03/17 10/19/18 History Atorvastatin [Lipitor] 10 mg PO HS 01/03/17 10/19/18 History Anastrozole [Arimidex] 1 mg PO DAILY 11/04/17 10/19/18 History Ergocalciferol [Vitamin D2 50,000 unit PO GARCIA 11/04/17 10/19/18 History (DRISDOL)] FLUoxetine HCL [PROzac] 20 mg PO DAILY 11/04/17 10/19/18 History Levothyroxine Sodium [Synthroid] 125 mcg PO DAILY 11/04/17 10/19/18 History amLODIPine [Norvasc] 10 mg PO DAILY 11/04/17 10/19/18 History Valsartan/Hydrochlorothiazide 1 tab PO DAILY 01/23/18 10/19/18 History [Valsartan-Hctz 320-25 mg Tab] Loratadine [Claritin] 10 mg PO DAILY 01/26/18 10/19/18 History ALPRAZolam [Xanax] 0.25 mg PO DAILY 10/19/18 10/19/18 History Albuterol Inhaler [Ventolin Hfa 2 puff INHALATION RT-Q6H PRN 10/19/18 10/19/18 History Inhaler] Ferrous Sulfate [Feosol] 325 mg PO DAILY 10/19/18 10/19/18 History Folic Acid 1 mg PO DAILY 10/19/18 10/19/18 History Allergies Allergy/AdvReac Type Severity Reaction Status Date / Time No Known Allergies Allergy Verified 10/19/18 16:49 Physical Exam Vitals: Vital Signs Temp Pulse Pulse Resp BP BP Pulse Ox 10/19/18 22:21 97.8 F 72 16 122/70 95 10/19/18 20:11 85 18 143/64 98 10/19/18 17:41 68 18 132/68 100 10/19/18 15:42 97.9 F 87 18 110/69 99 Intake and Output 10/19/18 10/19/18 10/19/18 06:59 14:59 22:59 Other: Weight 76.657 kg General: non toxic, no distress, appears at stated age, obese Derm: no unusual rashes/lesions no unusual ecchymoses, warm, dry Head: atraumatic, normocephalic, symmetric Eyes: EOMI, no lid lag, anicteric sclera, pupils equal round reactive to light ENT: Nose and ears atraumatic, no thrush, no pharyngeal erythema Neck: No thyromegaly, no cervical lymphadenopathy, trachea midline, supple Mouth: no lip lesion, mucus membranes moist Cardiovascular: S1S2 reg, no murmur, positive posterior tibial pulse bilateral, no edema, capillary refill less than 2 seconds Lungs: CTA bilateral, no rhonchi, no rales , no accessory muscle use Abdominal: soft, nontender to palpation, mildly distended, no fluid wave appreciated, no guarding, no appreciable organomegaly, normal bowel sounds Ext: no gross muscle atrophy, muscle strength 5 out of 5 in all 4 extremities grossly, no contractures, Neuro: CN II-XI grossly intact, light touch intact all 4 extremities, finger to nose within normal limits, Psych: Alert, oriented to person and place only, appropriate affect Results CBC & Chem 7: 10/19/18 13:35 10/19/18 13:35 Labs: Abnormal Lab Results - Last 24 Hours (Table) 10/19/18 10/19/18 10/19/18 Range/Units 13:35 13:35 20:18 WBC 12.6 H (3.8-10.6) k/uL RBC 3.65 L (3.80-5.40) m/uL Hgb 10.6 L (11.4-16.0) gm/dL Hct 31.8 L (34.0-46.0) % Neutrophils # 10.1 H (1.3-7.7) k/uL Sodium 136 L (137-145) mmol/L Carbon Dioxide 19 L (22-30) mmol/L BUN 42 H (7-17) mg/dL Creatinine 2.28 H (0.52-1.04) mg/dL Glucose 125 H (74-99) mg/dL TSH 0.068 L (0.465-4.680) mIU/L Urine Protein Trace H (Negative) Assessment and Plan Plan: MYESHA on CKD -IVFs -Monitor BMP Nausea, vomiting, abdominal distension -Anti-emetics -Full liquid diet -Consider CT abd w/ contrast if MYESHA resolves Leukocytosis, likely reactive, no signs of infection -Monitor CBC Low TSH, likely too high a dose of Levothroxine -Will hold for now Black stools -Likely due to iron supplementation -Hgb stable Chronic anemia -Monitor CBC Chest pain, SOB -Cardiac monitoring Chronic conditions: HTN, HLD -Resume home meds DVT//GI prophylaxis -Heparin -Protonix The patient is admitted with an anticipated less than 2 midnight stay for evaluation of MYESHA. CODE STATUS:Full Code Discussed with: Patient, son, son-in-law, [id number] Anticipated discharge date: 10/20/[address] A total of 35 minutes was spent on the care of this complex patient more than 50% of the time was spent in counseling and care coordination.
[2018-10-20] MEDS: HEPARIN SODIUM,PORCINE 5,000 UNIT/ML 1 ML VIAL SQ SCH ×4 (03:29→23:45)
[2018-10-20 08:49] LABS: Albumin 1.9 g/dL (3.5-5.0); Total Bilirubin 0.2 mg/dL (0.2-1.3); Total Protein 3.8 g/dL (6.3-8.2)
[2018-10-20 08:52] LABS: Calcium 5.8 mg/dL (8.4-10.2)
[2018-10-20 08:53] LABS: HCT 25.6 % (34.0-46.0); HGB 8.9 gm/dL (11.4-16.0); MCH 30.8 pg (25.0-35.0); MCHC 34.9 g/dL (31.0-37.0); MCV 88.4 fL (80.0-100.0); Mean Platelet Volume 7.6; Platelet Count 194 k/uL (150-450); RBC 2.89 m/uL (3.80-5.40); WBC 7.4 k/uL (3.8-10.6)
[2018-10-20] MEDS ORDERED: Potassium Replacement Protocol 1 EACH MISC MISCELLANE PRN (08:58)
[2018-10-20] MEDS: ALPRAZolam 0.25 MG TAB PO SCH (09:09)
[2018-10-20] MEDS: ASPIRIN 81 MG PO SCH (09:10)
[2018-10-20] MEDS: ANASTROZOLE 1 MG TAB PO SCH (09:10)
[2018-10-20] MEDS: FLUoxetine HCL 20 MG CAP PO SCH (09:10)
[2018-10-20] MEDS: FERROUS SULFATE 325 MG TAB PO SCH (09:10)
[2018-10-20] MEDS: FOLIC ACID 1 MG TAB PO SCH (09:10)
[2018-10-20] MEDS: amLODIPine 10 MG TAB PO SCH (09:10)
[2018-10-20] MEDS: PANTOPRAZOLE 40 MG/10 ML VIAL IVP SCH (09:11)
[2018-10-20] MEDS ORDERED: POLYETHYLENE GLYCOL 3350 17 GM POWD.PACK PO STA (12:24)
--- NOTE | 2018-10-20 12:27 | P.PN ---
Subjective Progress Note Date: 10/20/18 Principal diagnosis: Abdominal pain Patient was seen and examined. No acute events overnight. Patient reports epigastric pain that has been ongoing for the past week. Patient reports a decrease in appetite and a few episodes of nausea and vomiting as well. Patient reports pebble-sized stool along with liquid stools. Patient also reports black colored stools, though takes iron supplementation. Patient states that the pain is in between her chest and her stomach. She is also felt fatigued and sleepy over the past 3 days. Pain is intermittent, 8-9 out of 10 in severity. Occasionally radiating to the back. Patient reports a slight aggravation with meals. Objective - Vital Signs Vital signs: Vital Signs Temp 98.2 F 10/20/18 06:30 Pulse 69 10/20/18 06:30 Resp 16 10/20/18 06:30 BP 122/63 10/20/18 06:30 Pulse Ox 95 10/20/18 06:30 Intake & Output 10/19/18 10/20/18 10/20/18 18:59 06:59 18:59 Intake Total 640 Balance 640 Weight 76.657 kg Intake: Intake, IV Titration 100 Amount Sodium Chloride 0.9% 1, 100 000 ml @ 100 mls/hr IV . Q10H ONE Rx#:[id number] Oral 540 Other: Voiding Method Incontinent # Voids 1 - Exam General: [non toxic], [no distress], [appears at stated age] Derm: [warm], [dry] Head: [atraumatic], [normocephalic], [symmetric] Eyes: [EOMI], [no lid lag], [anicteric sclera] Mouth: [no lip lesion], [mucus membranes moist] Cardiovascular: [S1S2 reg], [no murmur], [positive DP pulse bilateral] Lungs: [CTA bilateral], [no rhonchi, no rales] , [no accessory muscle use] Abdominal: [soft], [tenderness in the left lower quadrant and epigastric area without rebound], [no guarding], [no appreciable organomegaly], [negative Gonzalez's] Ext: [no gross muscle atrophy], [no edema], [no contractures] Neuro: [no focal neuro deficits] Psych: [Alert], [oriented], [appropriate affect] - Labs CBC & Chem 7: 10/20/18 08:04 10/20/18 08:04 Labs: Abnormal Lab Results - Last 24 Hours (Table) 10/19/18 10/19/18 10/19/18 Range/Units 13:35 13:35 20:18 WBC 12.6 H (3.8-10.6) k/uL RBC 3.65 L (3.80-5.40) m/uL Hgb 10.6 L (11.4-16.0) gm/dL Hct 31.8 L (34.0-46.0) % Neutrophils # 10.1 H (1.3-7.7) k/uL Sodium 136 L (137-145) mmol/L Potassium (3.5-5.1) mmol/L Chloride (98-107) mmol/L Carbon Dioxide 19 L (22-30) mmol/L BUN 42 H (7-17) mg/dL Creatinine 2.28 H (0.52-1.04) mg/dL Glucose 125 H (74-99) mg/dL Calcium (8.4-10.2) mg/dL Total Protein (6.3-8.2) g/dL Albumin (3.5-5.0) g/dL TSH 0.068 L (0.465-4.680) mIU/L Urine Protein Trace H (Negative) 10/20/18 10/20/18 Range/Units 08:04 08:04 WBC (3.8-10.6) k/uL RBC 2.89 L (3.80-5.40) m/uL Hgb 8.9 L D (11.4-16.0) gm/dL Hct 25.6 L (34.0-46.0) % Neutrophils # (1.3-7.7) k/uL Sodium (137-145) mmol/L Potassium 3.0 L (3.5-5.1) mmol/L Chloride 121 H (98-107) mmol/L Carbon Dioxide 14 L (22-30) mmol/L BUN 27 H (7-17) mg/dL Creatinine 1.29 H (0.52-1.04) mg/dL Glucose (74-99) mg/dL Calcium 5.8 L* (8.4-10.2) mg/dL Total Protein 3.8 L (6.3-8.2) g/dL Albumin 1.9 L (3.5-5.0) g/dL TSH (0.465-4.680) mIU/L Urine Protein (Negative) Microbiology - Last 24 Hours (Table) 10/19/18 20:18 Urine Culture - Preliminary Urine,Catheterized Assessment and Plan Assessment: Assessment and Plan 1. Acute kidney injury on chronic kidney disease 2. Epigastric pain, associated with nausea and vomiting with changes in stool color and consistency 3. Chest pain 4. Low TSH 5. Hypokalemia 6. Hyperchloremic metabolic acidosis 7. Hypocalcemia 8. Anemia 9. History of breast cancer 10. Hypertension 1. BUN 27, creatinine 1.29. Greatly improved since admission. Likely secondary to dehydration. Will DC IVF and encourage by mouth hydration. Avoid nephrotoxins. Daily BMP. 2. Possible constipation? CT of the abdomen and pelvis unrevealing. Patient had a mild leukocytosis of 12.6 on admission but afebrile, WBC count within normal limits this morning. Continue Protonix IV. Zofran as needed for nausea or vomiting. Morphine as needed for pain. Start MiraLAX daily. Follow stool for occult blood. Follow abdominal ultrasound. 3. Possibly related to history mastectomy. Troponin less than 0.012, EKG showing normal sinus rhythm. Follow troponin/EKG to rule out ACS. Pain management as above. Telemetry monitoring. Continue aspirin and Lipitor. Follow chest x-ray. 4. TSH 0.068. Patient asymptomatic. Follow free T4. 5. Potassium 3.0. Replaced via protocol. Daily BMP. 6. Chloride 121, bicarbonate 14. Likely secondary to IVF. DC IVF and encourage hydration by mouth. Daily BMP. 7. Calcium 5.8. Albumin is also low at 1.9. This is likely secondary to dilution from yesterday. Follow ionized calcium. 8. Hemoglobin 8.9, downtrending from 10.6 on admission. Likely secondary to dilution. Follow FOBT. Daily CBC. Transfuse if hemoglobin less than 7. 9. She will need adequate follow-up in the outpatient setting. Continue anastrozole. 10. BP 122/63. Continue amlodipine. Monitor vitals, adjust medications as necessary. Patient admitted for acute kidney injury on chronic kidney disease, improved greatly. Patient continues to have chest and epigastric pain associated with nausea and changes in stool color and caliber. Plans for abdominal ultrasound. Rule out acute coronary syndrome. Patient is pending clinical improvement.
[2018-10-20 14:18] LABS: Creatine Kinase 37 U/L (30-135)
[2018-10-20 14:23] LABS: Creatine Kinase MB 0.7 ng/mL (0.0-2.4); Troponin I <0.012 ng/mL (0.000-0.034)
--- NOTE | 2018-10-20 14:38 | XR ---
EXAMINATION TYPE: XR chest 2V DATE OF EXAM: 10/20/2018 COMPARISON: 11/17/2017 TECHNIQUE: PA and lateral views submitted. HISTORY: Chest pain FINDINGS: There is left lower lobe infiltrate. Hypertrophic change of the spine. Atherosclerotic change aorta. Arthropathy shoulders. Biapical pleural thickening. No overt failure. Lobulation the right hilum note d. Mass not excluded. CT chest recommended. Report called to the patient's nurse. IMPRESSION: 1. Left lower lobe infiltrate correlate for pneumonia. 2. There is lobulation of the right hilum. Findings are suggestive of a mass recommend CT chest.
--- NOTE | 2018-10-20 14:56 | US ---
EXAMINATION TYPE: US abdomen complete DATE OF EXAM: 10/20/2018 COMPARISON: Ultrasound 11/17/2017 CLINICAL HISTORY: Abdominal pain and distention. . EXAM MEASUREMENTS: Liver Length: 11.7 cm Gallbladder Wall: 0.3 cm CBD: 0.5 cm Spleen: 8.9 cm Right Kidney: 8.3 x 4.2 x 4.1 cm Left Kidney: 9.2 x 4.2 x 3.9 cm Technically difficult study. Patient did not tolerate any probe pressure, very tender all over. Pancreas: not visualized due to midline bowel gas Liver: limited visualization to intercostal window. Gallbladder: No stones seen Evidence for sonographic Gonzalez's sign: No CBD: wnl Spleen: wnl Right Kidney: No hydronephrosis or masses seen Left Kidney: No hydronephrosis or masses seen Upper IVC: wnl Abd Aorta: not imaged due to patient discomfort. IMPRESSION: 1. Limited assessment of the liver and pancreas. No acute process as visualized. Liver somewhat coars ened echo pattern which is a nonspecific finding can be seen with hepatic steatosis, diffuse hepatoce llular disease or hepatitis correlate clinically
[2018-10-20] MEDS: POTASSIUM CHLORIDE ER 20 MEQ TAB.ER PO SCH ×2 (16:29→16:31)
--- NOTE | 2018-10-20 20:06 | CT ---
EXAMINATION TYPE: CT chest wo con DATE OF EXAM: 10/20/2018 COMPARISON: 02/23/2017 HISTORY: Possible hilum mass. CT DLP: 491 mGycm. Automated Exposure Control for Dose Reduction was Utilized. TECHNIQUE: CT scan of the thorax is performed without IV contrast. COMPARISON: 02/23/2017 chest FINDINGS: The airways and lungs are clear, and the pleural spaces are negative. The mediastinal exam is positive for an enlarged pretracheal lymph node, an enlarged right mid hilar lymph node measuring just over 1 cm diameter, and a 2.5 cm right infrahilar mass within the inferior pulmonary ligament. There is mild cardiomegaly and coronary calcifications, but no pericardial effusion. Multifocal skeletal heterogeneous lesions noted in the thoracic spine, consistent with vertebral meta stases, but without pathologic compression fracture or intraspinal component. Visualized extrathoracic soft tissues are negative for mass or adenopathy. IMPRESSION: 1. Enlarged pretracheal lymph node; enlarged right mid hilar lymph node measuring just o uday 1 cm diameter; and a 2.5 cm right infrahilar mass within the inferior pulmonary ligament. 2. Multifocal skeletal lesions consistent with vertebral metastases.
[2018-10-20] MEDS: ATORVASTATIN 10 MG TAB PO SCH (21:32)
[2018-10-21] MEDS: FLUoxetine HCL 20 MG CAP PO SCH (08:47)
[2018-10-21] MEDS: ASPIRIN 81 MG PO SCH ×2 (08:47→08:54)
[2018-10-21] MEDS: FERROUS SULFATE 325 MG TAB PO SCH (08:47)
[2018-10-21] MEDS: amLODIPine 10 MG TAB PO SCH (08:47)
[2018-10-21] MEDS: ANASTROZOLE 1 MG TAB PO SCH (08:47)
[2018-10-21] MEDS: FOLIC ACID 1 MG TAB PO SCH (08:47)
[2018-10-21] MEDS: PANTOPRAZOLE 40 MG/10 ML VIAL IVP SCH (08:47)
[2018-10-21] MEDS: ALPRAZolam 0.25 MG TAB PO SCH (08:47)
[2018-10-21] MEDS: HEPARIN SODIUM,PORCINE 5,000 UNIT/ML 1 ML VIAL SQ SCH ×2 (08:48→16:14)
--- NOTE | 2018-10-21 14:38 | CONS ---
CONSULTATION PULMONARY CRITICAL CARE CONSULTATION: DATE OF SERVICE: 10/21/2018 A 73-year-old female who apparently came to the emergency room for evaluation of a GI bleed. The patient apparently complains of weakness. She has been weak and having decreased appetite with nausea and vomiting. She can't keep anything down. She does admit to bleeding in her stools. She does have a history of metastatic breast cancer with multiple skeletal metastases. We are not quite sure why we were consulted. Other than the fact that she did have a CT scan showing some adenopathy and also a right hilar mass. The patient may need that mass evaluated. We will wait for input from Oncology as they obviously know this patient much better. She herself is not a particularly good historian. She is alert and oriented x2 only. The patient does not have any pulmonary complaints at this time. She is wearing nasal O2. She apparently was admitted with a diagnosis of GI hemorrhage, dizziness, abdominal pain, weakness, and renal failure. CURRENT MEDICATION LIST: Zantac, low-dose aspirin, Lipitor, Arimidex, vitamin D2, Prozac, Synthroid, Norvasc, valsartan/HCTZ, Claritin, Xanax, Ventolin inhaler, iron, and folic acid. ALLERGIES: Denied. MEDICAL HISTORY: Includes apparently mild asthma, although we did not get that from the patient. She also apparently has a history of metastatic breast cancer, CVA, gastroesophageal reflux disease, deafness, hyperlipidemia, hypertension, memory impairment, and syncope. She also suffers from hypothyroidism. Other medical history includes bilateral breast cancer, left arm edema as well as some other medical issues. SURGICAL HISTORY: Includes among other things hysterectomy, joint replacement, bilateral knee replacement and double mastectomy back in February 2017, which is when her cancer was diagnosed initially. She does also apparently suffer from some anxiety, depression. SOCIAL HISTORY: Positive for previous remote tobacco use. She never smoked for a long period of time. Denies any alcohol or illicit drug use. FAMILY HISTORY: Apparently positive for CVA, diabetes, myocardial infarction. REVIEW OF SYSTEMS: Is still unreliable as the patient is a very poor historian. CONSTITUTIONAL: Weakness. NEUROLOGIC: Negative. HEENT: Negative. CARDIOVASCULAR: Negative. PULMONARY: Negative. GI: Nausea, vomiting, diarrhea, and GI bleed. : Negative. RHEUMATOLOGIC: Negative. IMMUNOLOGIC: Negative. ENDOCRINOLOGIC: Negative. DERMATOLOGIC: Negative. Current vital signs are reviewed. Temperature is 98, heart rate is 73, respiratory rate 16, blood pressure 111/63 mean 79, 2 L saturation 99%. She appears in no acute distress. No respiratory distress. No use of accessory muscles or audible wheezing. She denies being winded. HEENT examination is grossly unremarkable. Nasal O2 noted. Neck is supple. Full range of motion. No adenopathy. No neck vein distention. Cardiovascular examination reveals regular rhythm and rate. Heart rate 73. S1, S2 normal. Lungs are clear, breath sounds equal. No wheezes, rhonchi, or crackles. Abdomen is soft. Bowel sounds are heard. Extremities are intact. No cyanosis, clubbing, or edema. Skin without rash. Neurologic examination is difficult to assess but appears normal. LABS: Reviewed. White count 7.4, hemoglobin 8.9, hematocrit 25.6, platelet count 194,000. Sodium 141, potassium 3, chloride 121, CO2 is 14, anion gap is 6, BUN 27, creatinine is 1.29. Electrolytes are consistent with a hyperchloremic non-anion gap metabolic acidosis. Her lactic acid was 1.1, calcium 5.8. Rest of the labs are reviewed. Urine normal. TSH 0.068. Influenza studies are negative. She had a CT of the abdomen and pelvis, which showed no acute process. She had an abdominal ultrasound which showed no acute process noted. There may be some evidence of non-alcoholic fatty liver. A chest x-ray showed possible atelectasis left lower lobe. In addition, on the chest x-ray there is a bilobed abnormality in the right hilum. I do not think it represents pulmonary artery on that side. CT scan of the chest revealed enlarged pretracheal lymph node and a large right mid hilar lymph node measuring a bit more than 1 cm in size as well as a 2.5 cm right infrahilar mass within the inferior pulmonary ligament. In addition, the CT scan shows multifocal skeletal lesions in the thoracic spine consistent with vertebral metastasis. ASSESSMENT: 1. Gastrointestinal bleed with anemia. 2. Widely metastatic breast cancer, status post bilateral mastectomy. 3. Nonspecific adenopathy as well as a right hilar lesion, which may represent metastatic disease as well. Alternatively, this could be a second primary malignancy. 4. History of mild asthma. 5. History of cerebrovascular accident. 6. History of gastroesophageal reflux disease. 7. History of deafness. 8. History of hyperlipidemia. 9. History of hypertension. 10.History of dementia. 11.History of syncope. 12.Hypothyroidism. PLAN: The patient is currently being evaluated for her abdominal discomfort and GI bleed. She is anemic. The patient may need evaluation of the right hilar mass. The patient will be maintained on my list. Will wait for Oncology input. Will see whether or not they were interested in attempting to biopsy that lesion in the right hilar area. Additional recommendations and suggestions are forthcoming. Currently, she is relatively stable. No additional recommendations are made. Will follow. Her asthma is not particularly active at this time. MMODL / IJN: [id number] /
--- NOTE | 2018-10-21 14:41 | P.PN ---
Subjective Progress Note Date: 10/21/18 Principal diagnosis: Abdominal distention Patient seen and examined. No acute events overnight. Patient reports continued epigastric distention. Requesting to be change from full liquid to regular diet. She denies any chest pain, shortness of breath or palpitations. No nausea or vomiting. No fever or chills. Chest x-ray done showing hilar mass, confirmed by CT of the chest with skeletal metastasis. No family at bedside today. Objective - Vital Signs Vital signs: Vital Signs Temp 98.0 F 10/21/18 11:25 Pulse 73 10/21/18 11:25 Resp 16 10/21/18 11:25 BP 111/63 10/21/18 11:25 Pulse Ox 99 10/21/18 11:25 Intake & Output 10/20/18 10/21/18 10/21/18 18:59 06:59 18:59 Intake Total 1200 Output Total 350 Balance 850 Intake: Oral 1200 Output: Urine 350 Other: Voiding Method Bedside Commode Bedside Commode # Voids 1 1 # Bowel Movements 1 - Exam General: [non toxic], [no distress], [appears at stated age] Derm: [warm], [dry] Head: [atraumatic], [normocephalic], [symmetric] Eyes: [EOMI], [no lid lag], [anicteric sclera] Mouth: [no lip lesion], [mucus membranes moist] Cardiovascular: [S1S2 reg], [no murmur], [positive DP pulse bilateral] Lungs: [CTA bilateral], [no rhonchi, no rales] , [no accessory muscle use] Abdominal: [soft], [tenderness in the left lower quadrant and epigastric area without rebound], [no guarding], [no appreciable organomegaly], [negative Gonzalez's] Ext: [no gross muscle atrophy], [no edema], [no contractures] Neuro: [no focal neuro deficits] Psych: [Alert], [oriented], [appropriate affect] - Labs CBC & Chem 7: 10/20/18 08:04 10/20/18 08:04 Labs: Microbiology - Last 24 Hours (Table) 10/19/18 20:18 Urine Culture - Final Urine,Catheterized Assessment and Plan Assessment: Assessment and Plan 0. Pulmonary mass 1. Acute kidney injury on chronic kidney disease 2. Epigastric pain, associated with nausea and vomiting with changes in stool color and consistency 3. Chest pain 4. Low TSH 5. Hypokalemia 6. Hyperchloremic metabolic acidosis 7. Hypocalcemia 8. Anemia 9. History of breast cancer 10. Hypertension 0. Chest x-ray done yesterday shows lobulation of the right hilum suggestive of mass, recommend CT. CT chest shows enlarged pretracheal lymph node, right infrahilar mass within the inferior pulmonary ligament with multifocal skeletal lesions consistent with vertebral metastasis. Follow oncology consult. Will discuss with pulmonology need for bronchoscopy. 1. BUN 27, creatinine 1.29. Greatly improved since admission. Likely secondary to dehydration. Will DC IVF and encourage by mouth hydration. Avoid nephrotoxins. Daily BMP. 2. Possible constipation? CT of the abdomen and pelvis unrevealing. Patient had a mild leukocytosis of 12.6 on admission but afebrile, WBC count within normal limits this morning. Continue Protonix IV. Zofran as needed for nausea or vomiting. Morphine as needed for pain. Start MiraLAX daily. Follow stool for occult blood. Abdominal ultrasound shows diffuse hepatocellular disease. Switch diet to regular. 3. Possibly related to history mastectomy. Troponin less than 0.012 2, EKG showing normal sinus rhythm. Pain management as above. Telemetry monitoring. Continue aspirin and Lipitor. 4. TSH 0.068. Patient asymptomatic. Follow free T4. 5. Potassium 3.0. Replaced via protocol. Daily BMP. 6. Chloride 121, bicarbonate 14. Likely secondary to IVF. DC IVF and encourage hydration by mouth. Daily BMP. 7. Calcium 5.8. Albumin is also low at 1.9. This is likely secondary to dilution from yesterday. Follow ionized calcium. 8. Hemoglobin 8.9, downtrending from 10.6 on admission. Likely secondary to dilution. Follow FOBT. Daily CBC. Transfuse if hemoglobin less than 7. 9. She will need adequate follow-up in the outpatient setting. Pulmonary mass seen on chest x-ray with vertebral metastasis. Continue anastrozole. Follow oncology consult. 10. BP 111/63. Continue amlodipine. Monitor vitals, adjust medications as necessary. Patient admitted for acute kidney injury on chronic kidney disease, improved greatly. Found to have an infrahilar mass, pulmonology and oncology on board.
[2018-10-21 15:12] LABS: Anisocytosis Slight; Basophils % (A) 0 %; Eosinophils # (A) 0.4 k/uL (0-0.7); Eosinophils % (A) 5 %; HCT 31.4 % (34.0-46.0); HGB 10.3 gm/dL (11.4-16.0); Lymphocytes # (A) 1.9 k/uL (1.0-4.8); Lymphocytes % (A) 27 %; MCH 28.2 pg (25.0-35.0); MCHC 32.9 g/dL (31.0-37.0); MCV 85.6 fL (80.0-100.0); Mean Platelet Volume 10.1; Monocytes # (A) 0.5 k/uL (0-1.0); Monocytes % (A) 7 %; Neutrophils # (A) 4.2 k/uL (1.3-7.7); Neutrophils % (A) 59 %; Platelet Count 196 k/uL (150-450); RBC 3.67 m/uL (3.80-5.40); RDW 16.3 % (11.5-15.5); WBC 7.2 k/uL (3.8-10.6)
[2018-10-21 15:18] LABS: Calcium 8.9 mg/dL (8.4-10.2); Potassium 5.3 mmol/L (3.5-5.1)
[2018-10-21] MEDS: ATORVASTATIN 10 MG TAB PO SCH (20:28)
[2018-10-22] MEDS: HEPARIN SODIUM,PORCINE 5,000 UNIT/ML 1 ML VIAL SQ SCH ×4 (00:01→23:48)
[2018-10-22 00:03] LABS: Glucose,Whole Blood 102 mg/dL (75-99)
[2018-10-22] MEDS: PANTOPRAZOLE 40 MG/10 ML VIAL IVP SCH (08:07)
[2018-10-22] MEDS: FERROUS SULFATE 325 MG TAB PO SCH (08:08)
[2018-10-22] MEDS: ANASTROZOLE 1 MG TAB PO SCH (08:08)
[2018-10-22] MEDS: amLODIPine 10 MG TAB PO SCH (08:08)
[2018-10-22] MEDS: FLUoxetine HCL 20 MG CAP PO SCH (08:08)
[2018-10-22] MEDS: FOLIC ACID 1 MG TAB PO SCH (08:08)
[2018-10-22] MEDS: ALPRAZolam 0.25 MG TAB PO SCH (08:08)
[2018-10-22] MEDS: ASPIRIN 81 MG PO SCH (08:08)
[2018-10-22] MEDS: LEVOTHYROXINE 125 MCG TAB PO SCH (08:21)
[2018-10-22] MEDS: VALSARTAN 160 MG TAB PO SCH (08:21)
[2018-10-22] MEDS: HYDROCHLOROTHIAZIDE 25 MG TAB PO SCH (08:21)
[2018-10-22] MEDS ORDERED: POLYETHYLENE GLYCOL 3350 17 GM POWD.PACK PO PRN (08:38)
--- NOTE | 2018-10-22 09:28 | P.PN ---
Subjective Progress Note Date: 10/22/18 Principal diagnosis: infrahilar mass Patient seen and examined. No acute events overnight. Patient reports improvement in her abdominal pain, tolerating breakfast well without any nausea or vomiting. Patient is not had a bowel movement since being here, last bowel movement was days prior to presentation after she had taken a bunch of laxative pills. She did report a bowel movement of liquid stool, dark and black in nature. She denies any chest pain, shortness of breath or palpitations. No fever or chills. She is upset at her oldest son this morning. Objective - Vital Signs Vital signs: Vital Signs Temp 98.3 F 10/22/18 05:32 Pulse 67 10/22/18 05:32 Resp 16 10/22/18 05:32 BP 116/59 10/22/18 05:32 Pulse Ox 97 10/22/18 05:32 Intake & Output 10/21/18 10/22/18 10/22/18 18:59 06:59 18:59 Intake Total 790 Balance 790 Intake: Oral 790 Other: Voiding Method Bedside Commode Bedside Commode # Voids 3 1 - Exam General: [non toxic], [no distress], [appears at stated age] Derm: [warm], [dry] Head: [atraumatic], [normocephalic], [symmetric] Eyes: [EOMI], [no lid lag], [anicteric sclera] Mouth: [no lip lesion], [mucus membranes moist] Cardiovascular: [S1S2 reg], [no murmur], [positive DP pulse bilateral] Lungs: [CTA bilateral], [no rhonchi, no rales] , [no accessory muscle use] Abdominal: [soft], [tenderness in the left lower quadrant and epigastric area without rebound with deep palpation], [no guarding], [no appreciable organomegaly], [negative Gonzalez's] Ext: [no gross muscle atrophy], [no edema], [no contractures] Neuro: [no focal neuro deficits] Psych: [Alert], [oriented], [appropriate affect] - Labs CBC & Chem 7: 10/21/18 14:41 10/21/18 14:41 Labs: Abnormal Lab Results - Last 24 Hours (Table) 10/21/18 10/21/18 10/21/18 Range/Units 14:41 14:41 23:59 RBC 3.67 L (3.80-5.40) m/uL Hgb 10.3 L (11.4-16.0) gm/dL Hct 31.4 L (34.0-46.0) % RDW 16.3 H (11.5-15.5) % Potassium 5.3 H (3.5-5.1) mmol/L Chloride 112 H (98-107) mmol/L Carbon Dioxide 21 L (22-30) mmol/L BUN 26 H (7-17) mg/dL Creatinine 1.58 H (0.52-1.04) mg/dL Glucose 101 H (74-99) mg/dL POC Glucose (mg/dL) 102 H (75-99) mg/dL Assessment and Plan Assessment: Assessment and Plan 0. Infrahilar mass 1. Acute kidney injury on chronic kidney disease 2. Epigastric pain, associated with nausea and vomiting with changes in stool color and consistency 3. Chest pain 4. Low TSH 5. Hyperkalemia 6. Hyperchloremic metabolic acidosis 7. Anemia 8. History of breast cancer 9. Hypertension 0. Chest x-ray done yesterday shows lobulation of the right hilum suggestive of mass, recommend CT. CT chest shows enlarged pretracheal lymph node, right infrahilar mass within the inferior pulmonary ligament with multifocal skeletal lesions consistent with vertebral metastasis. Follow oncology consult. Will discuss with pulmonology need for bronchoscopy. Can probably be done in the outpatient setting. 1. BUN 27, creatinine 1.29. Greatly improved since admission. Likely secondary to dehydration. Will DC IVF and encourage by mouth hydration. Avoid nephrotoxins. Daily BMP. 2. Improved. CT of the abdomen and pelvis unrevealing, no impaction seen. Patient had a mild leukocytosis of 12.6 on admission but afebrile, WBC count within normal limits this morning. Continue Protonix IV. Zofran as needed for nausea or vomiting. Morphine as needed for pain. MiraLAX daily as needed for constipation. Follow stool for occult blood. Abdominal ultrasound shows diffuse hepatocellular disease. Switch diet to regular. 3. Possibly related to history mastectomy, infrahilar mass seen on chest CT. Troponin less than 0.012 2, EKG showing normal sinus rhythm. Pain management as above. Telemetry monitoring. Continue aspirin and Lipitor. 4. TSH 0.068. Patient asymptomatic. Follow free T4. 5. Potassium 5.3. Mild elevation, FU morning BMP. 6. Chloride 121-12, bicarbonate 14-21. Improving. Likely secondary to IVF. DC IVF and encourage hydration by mouth. Daily BMP. 7. Hemoglobin 8.9, downtrending from 10.6 on admission, back up to 10.3. Likely secondary to dilution. Follow FOBT. Daily CBC. Transfuse if hemoglobin less than 7. 9. She will need adequate follow-up in the outpatient setting. Pulmonary mass seen on chest x-ray with vertebral metastasis. Continue anastrozole. Follow oncology consult. 10. BP 111/63. Continue amlodipine. Monitor vitals, adjust medications as necessary. Patient admitted for acute kidney injury on chronic kidney disease, improved greatly. Found to have an infrahilar mass, pulmonology and oncology on board, can likely be worked up and managed in the outpatient setting. Abdominal pain slightly improved since admission. Tolerating diet. Stool for occult blood pending.
[2018-10-22 10:00] LABS: Basophils % (A) 0 %; Eosinophils # (A) 0.4 k/uL (0-0.7); Eosinophils % (A) 6 %; HCT 30.7 % (34.0-46.0); HGB 10.6 gm/dL (11.4-16.0); Lymphocytes # (A) 1.5 k/uL (1.0-4.8); Lymphocytes % (A) 22 %; MCH 30.2 pg (25.0-35.0); MCHC 34.3 g/dL (31.0-37.0); MCV 87.8 fL (80.0-100.0); Mean Platelet Volume 7.4; Monocytes # (A) 0.3 k/uL (0-1.0); Monocytes % (A) 4 %; Neutrophils # (A) 4.6 k/uL (1.3-7.7); Neutrophils % (A) 67 %; Platelet Count 252 k/uL (150-450); RDW 14.1 % (11.5-15.5)
[2018-10-22 11:14] LABS: Albumin 3.2 g/dL (3.5-5.0); Calcium 8.9 mg/dL (8.4-10.2); Potassium 4.8 mmol/L (3.5-5.1); Total Bilirubin 0.3 mg/dL (0.2-1.3); Total Protein 5.8 g/dL (6.3-8.2)
--- NOTE | 2018-10-22 12:30 | P.PN ---
Subjective Progress Note Date: 10/22/18 Principal diagnosis: Gastric intestinal bleed with anemia, metastatic breast cancer status post bilateral mastectomy, nonspecific adenopathy in the right hilar lesion rule out metastatic disease to the lungs. On 10/22/2018 patient seen in follow-up on medical surgical floor. Patient has been admitted to the hospital on 10/19/2018 with bleeding in her stools, anemia. Patient has a history of metastatic breast cancer with multiple skeletal metastasis, CT chest showed adenopathy in the right hilar region. We were asked to see the patient in consultation with a right hilar mass. Today's labs have been reviewed, hemoglobin is stable, at 10.6, a white blood cell, 7.0, serum sodium is 140, potassium is 4.8, chloride is 109, CO2 is 21, BUN is 25 creatinine is 1.58. No plans of chest pain or shortness of breath. No nausea or vomiting, patient has not had any bowel movements since admission. No recurrence of rectal bleeding. Objective - Vital Signs Vital signs: Vital Signs Temp 98.3 F 10/22/18 05:32 Pulse 67 10/22/18 05:32 Resp 16 10/22/18 05:32 BP 116/59 10/22/18 05:32 Pulse Ox 97 10/22/18 05:32 Intake & Output 10/21/18 10/22/18 10/22/18 18:59 06:59 18:59 Intake Total 790 Balance 790 Intake: Oral 790 Other: Voiding Method Bedside Commode Bedside Commode Toilet # Voids 3 1 - Exam GENERAL EXAM: Alert, pleasant, 73-year-old white female patient on 2 L of oxygen comfortable in no apparent distress. HEAD: Normocephalic/atraumatic. EYES: Normal reaction of pupils, equal size. Conjunctiva pink, sclera white. NOSE: Clear with pink turbinates. THROAT: No erythema or exudates. NECK: No masses, no JVD, no thyroid enlargement, no adenopathy. CHEST: No chest wall deformity. Symmetrical expansion. LUNGS: Equal air entry with clear breath sounds CVS: Regular rate and rhythm, normal S1 and S2, no gallops, no murmurs, no rubs ABDOMEN: Soft, nontender. No hepatosplenomegaly, normal bowel sounds, no guarding or rigidity. EXTREMITIES: No clubbing, no edema, no cyanosis, 2+ pulses and upper and lower extremities. MUSCULOSKELETAL: Muscle strength and tone normal. SPINE: No scoliosis or deformity SKIN: No rashes CENTRAL NERVOUS SYSTEM: Alert and oriented -3. No focal deficits, tone is normal in all 4 extremities. PSYCHIATRIC: Alert and oriented -3. Appropriate affect. Intact judgment and insight. - Labs CBC & Chem 7: 10/22/18 09:24 10/22/18 09:24 Labs: Abnormal Lab Results - Last 24 Hours (Table) 10/21/18 10/21/18 10/21/18 Range/Units 14:41 14:41 23:59 RBC 3.67 L (3.80-5.40) m/uL Hgb 10.3 L (11.4-16.0) gm/dL Hct 31.4 L (34.0-46.0) % RDW 16.3 H (11.5-15.5) % Potassium 5.3 H (3.5-5.1) mmol/L Chloride 112 H (98-107) mmol/L Carbon Dioxide 21 L (22-30) mmol/L BUN 26 H (7-17) mg/dL Creatinine 1.58 H (0.52-1.04) mg/dL Glucose 101 H (74-99) mg/dL POC Glucose (mg/dL) 102 H (75-99) mg/dL Total Protein (6.3-8.2) g/dL Albumin (3.5-5.0) g/dL 10/22/18 10/22/18 Range/Units 09:24 09:24 RBC 3.50 L (3.80-5.40) m/uL Hgb 10.6 L (11.4-16.0) gm/dL Hct 30.7 L (34.0-46.0) % RDW (11.5-15.5) % Potassium (3.5-5.1) mmol/L Chloride 109 H (98-107) mmol/L Carbon Dioxide 21 L (22-30) mmol/L BUN 25 H (7-17) mg/dL Creatinine 1.58 H (0.52-1.04) mg/dL Glucose 112 H (74-99) mg/dL POC Glucose (mg/dL) (75-99) mg/dL Total Protein 5.8 L (6.3-8.2) g/dL Albumin 3.2 L (3.5-5.0) g/dL Assessment and Plan Plan: Assessment: #1. Nonspecific adenopathy and right hilar lesion, rule out metastatic disease to the lungs versus primary lung cancer #2. History of metastatic breast cancer with skeletal metastasis #3. Gastrointestinal bleeding with blood loss anemia, patient presented with the rectal bleeding #4. History of mild persistent bronchial asthma, currently stable #5. History of cerebrovascular accident #6. History of GERD #7. Hypertension, hyperlipidemia #8. History of dementia #9. History of syncope #10. Hypothyroidism Plan: Will await the recommendations from medical oncology in regards to the right hilar mass and adenopathy, the patient needs a biopsy or this is related to metastatic deposit from metastatic breast cancer. Hemodynamic patient remains stable, no specific complaints, no shortness of breath or chest pain. No hemoptysis. Her asthma is stable at this time, we'll continue to follow I performed a history & physical examination of the patient and discussed their management with my nurse practitioner, Sherlyn Mills. I reviewed the nurse practitioner's note and agree with the documented findings and plan of care. Lung sounds are positive for clear breath sounds. The findings and the impression was discussed with the patient. I attest to the documentation by the nurse practitioner. Time with Patient: Less than 30
[2018-10-22] MEDS: ATORVASTATIN 10 MG TAB PO SCH (20:34)
[2018-10-23] MEDS: LEVOTHYROXINE 125 MCG TAB PO SCH (06:13)
[2018-10-23] MEDS: HEPARIN SODIUM,PORCINE 5,000 UNIT/ML 1 ML VIAL SQ SCH ×2 (09:32→19:04)
[2018-10-23] MEDS: ALPRAZolam 0.25 MG TAB PO SCH (09:32)
[2018-10-23] MEDS: ASPIRIN 81 MG PO SCH (09:33)
[2018-10-23] MEDS: FERROUS SULFATE 325 MG TAB PO SCH (09:33)
[2018-10-23] MEDS: FLUoxetine HCL 20 MG CAP PO SCH (09:33)
[2018-10-23] MEDS: FOLIC ACID 1 MG TAB PO SCH (09:33)
[2018-10-23] MEDS: amLODIPine 10 MG TAB PO SCH (09:33)
[2018-10-23] MEDS: ANASTROZOLE 1 MG TAB PO SCH (09:33)
[2018-10-23] MEDS: PANTOPRAZOLE 40 MG/10 ML VIAL IVP SCH (09:34)
[2018-10-23] MEDS: HYDROCHLOROTHIAZIDE 25 MG TAB PO SCH (09:35)
[2018-10-23] MEDS: VALSARTAN 160 MG TAB PO SCH (09:35)
[2018-10-23 09:59] LABS: CA27.29 Breast Ca Marker 3051.8 U/mL (0.0-38.5)
[2018-10-23 12:03] VITALS: BP 138/76; PULSE 71; RESP 18; TEMP 98
--- NOTE | 2018-10-23 15:49 | P.PN ---
Subjective Progress Note Date: 10/23/18 Principal diagnosis: Gastric intestinal bleed with anemia, metastatic breast cancer status post bilateral mastectomy, nonspecific adenopathy in the right hilar lesion rule out metastatic disease to the lungs. On 10/22/2018 patient seen in follow-up on medical surgical floor. Patient has been admitted to the hospital on 10/19/2018 with bleeding in her stools, anemia. Patient has a history of metastatic breast cancer with multiple skeletal metastasis, CT chest showed adenopathy in the right hilar region. We were asked to see the patient in consultation with a right hilar mass. Today's labs have been reviewed, hemoglobin is stable, at 10.6, a white blood cell, 7.0, serum sodium is 140, potassium is 4.8, chloride is 109, CO2 is 21, BUN is 25 creatinine is 1.58. No plans of chest pain or shortness of breath. No nausea or vomiting, patient has not had any bowel movements since admission. No recurrence of rectal bleeding. On 10/23/2018 patient seen in follow-up on medical surgical floor. Awake and alert, in no acute distress, denies any shortness of breath denies any chest pain. There has been no further bleeding, today's hemoglobin is 10.6, white blood cell count is 7.0, profile is stable, B1 is 25 creatinine is 1.58. Patient is on a couple of liters per nasal cannula, her pulse ox 96%, patient is afebrile, respirations are even and nonlabored, lung sounds are clear, diminished at the bases. She is awaiting evaluation by the medical oncology, pulmonary perspective she remains stable, we were consulted in regards to right hilar mass. Objective - Vital Signs Vital signs: Vital Signs Temp 98 F 10/23/18 12:02 Pulse 71 10/23/18 12:02 Resp 18 10/23/18 12:02 BP 138/76 10/23/18 12:02 Pulse Ox 95 10/23/18 12:02 Intake & Output 10/22/18 10/23/18 10/23/18 18:59 06:59 18:59 Intake Total 1580 120 Output Total 350 Balance 1230 120 Intake: Oral 1580 120 Output: Urine 350 Other: Voiding Method Toilet Bedside Commode # Voids 3 1 2 - Exam GENERAL EXAM: Alert, pleasant, 73-year-old white female patient on 2 L of oxygen comfortable in no apparent distress. HEAD: Normocephalic/atraumatic. EYES: Normal reaction of pupils, equal size. Conjunctiva pink, sclera white. NOSE: Clear with pink turbinates. THROAT: No erythema or exudates. NECK: No masses, no JVD, no thyroid enlargement, no adenopathy. CHEST: No chest wall deformity. Symmetrical expansion. LUNGS: Equal air entry with clear breath sounds CVS: Regular rate and rhythm, normal S1 and S2, no gallops, no murmurs, no rubs ABDOMEN: Soft, nontender. No hepatosplenomegaly, normal bowel sounds, no guarding or rigidity. EXTREMITIES: No clubbing, no edema, no cyanosis, 2+ pulses and upper and lower extremities. MUSCULOSKELETAL: Muscle strength and tone normal. SPINE: No scoliosis or deformity SKIN: No rashes CENTRAL NERVOUS SYSTEM: Alert and oriented -3. No focal deficits, tone is normal in all 4 extremities. PSYCHIATRIC: Alert and oriented -3. Appropriate affect. Intact judgment and insight. - Labs CBC & Chem 7: 10/22/18 09:24 10/22/18 09:24 Labs: Abnormal Lab Results - Last 24 Hours (Table) 10/22/18 Range/Units 09:24 CA 15-3 Antigen 2675.8 H (0.0-32.3) U/mL CA 27-29 3051.8 H (0.0-38.5) U/mL Assessment and Plan Plan: Assessment: #1. Nonspecific adenopathy and right hilar lesion, rule out metastatic disease to the lungs versus primary lung cancer #2. History of metastatic breast cancer with skeletal metastasis #3. Gastrointestinal bleeding with blood loss anemia, patient presented with the rectal bleeding #4. History of mild persistent bronchial asthma, currently stable #5. History of cerebrovascular accident #6. History of GERD #7. Hypertension, hyperlipidemia #8. History of dementia #9. History of syncope #10. Hypothyroidism Plan: Patient remains stable from pulmonary perspective, we will obtain outpatient PET scan in regards to the right hilar mass and adenopathy. Medical oncology is following, CT of the chest has been reviewed with Dr. Peters, in the right hilar mass would be difficult to access for biopsy via bronchoscopy. No further bleeding, hemoglobin is 10.6, hemodynamically stable. Outpatient follow-up. I performed a history & physical examination of the patient and discussed their management with my nurse practitioner, Sherlyn Mills. I reviewed the nurse practitioner's note and agree with the documented findings and plan of care. Lung sounds are positive for clear breath sounds. The findings and the impression was discussed with the patient. I attest to the documentation by the nurse practitioner. Time with Patient: Less than 30
--- NOTE | 2018-10-23 15:58 | P.PN ---
Subjective Progress Note Date: 10/23/18 Principal diagnosis: Progressive Cancer History of Present Illness This is a 73 yr old WF, who presented with palpable left breast mass in 2017. SHe had diagnostic mammograms,with large area of tissue distortion at 3 o'clock,d U/S which revealed suspicious mass at 2 o'clock axilla (2.3cm),2cm mass at 3 o'clock left breast and another smaller lesion at 2 o'clock. Core biopsies of 2,3 and 1 oclock left breast were positive for invasive carcinoma,ER/AR strongly positive and HER2/JONY negative (1+). On 11/24/2016,CT scan of chest/abdomen/pelvis revealed no convincing evidence of metastatic disease,bilateral small and non specific lung nodules,bone scan was negative. 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 She started neoadjuvant arimidex on 11/30/2016 Bone density on 12/09/[address] scan of chest on 02/23/2017 revealed stable non specific lung nodules. She also had right breast biopsy for suspicious abnormality found on breast MRI which revealed DCIS. On 03/23/2017,she had bilateral mastectomies,left axillary nodes resection and right sentinel nodes biopsy,pathology revealed multifocal invasive carcinoma in left breast,largest 3.2cm,3/9 nodes were positive for macrometastasis in Left breast,DCIS and 1.3mm invasive cancer in Right breast and one sentinel node with possible micrometastasis. Based on extent of disease, ideally chemotherapy would have been considered. However the patient had multiple medical problems, including dementia, and need for assisted living. Therefore the family, specifically the legal guardian, had decided that they would not opt for chemotherapy. The patient was thus recommended radiation to the left axilla and chest wall, and continuation of Arimidex. She has not followed up in the office with Dr. Flowers since 04/03. The patient was brought in this time, as apparently she had been having some abdominal distention, abdominal discomfort and nausea and vomiting over the past few days. Apparently swallow amounts of black stools had been noted off and on. Of note the patient is on oral iron. Review of her labs show a slow decline in hemoglobin for the past 4-5 years. Over the past year baseline hemoglobin seems to be mostly in the 8 -10 range. The patient has dementia and is a very poor historian. The history is mostly obtained from EMR/Family/RN 10/23/18: Objective - Vital Signs Vital signs: Vital Signs Temp 98 F 10/23/18 12:02 Pulse 71 10/23/18 12:02 Resp 18 10/23/18 12:02 BP 138/76 10/23/18 12:02 Pulse Ox 95 10/23/18 12:02 Intake & Output 10/22/18 10/23/18 10/23/18 18:59 06:59 18:59 Intake Total 1580 120 Output Total 350 Balance 1230 120 Intake: Oral 1580 120 Output: Urine 350 Other: Voiding Method Toilet Bedside Commode # Voids 3 1 2 - Exam Physical Exam - Constitutional General appearance: no acute distress - EENT Eyes: EOMI, PERRLA ENT: hearing grossly normal, normal oropharynx - Neck Neck: no lymphadenopathy - Respiratory Respiratory: bilateral: CTA - Cardiovascular Rhythm: regular Heart sounds: normal: S1, S2 - Gastrointestinal General gastrointestinal: normal bowel sounds, soft - Integumentary Integumentary: normal - Neurologic Neurologic: CNII-XII intact - Musculoskeletal Musculoskeletal: generalized weakness, strength equal bilaterally - Psychiatric Significant memory loss - Labs CBC & Chem 7: 10/23/18 15:55 10/22/18 09:24 Labs: Abnormal Lab Results - Last 24 Hours (Table) 10/22/18 Range/Units 09:24 CA 15-3 Antigen 2675.8 H (0.0-32.3) U/mL CA 27-29 3051.8 H (0.0-38.5) U/mL Assessment and Plan Plan: Assessment and Plan (1) Gastrointestinal hemorrhage Narrative/Plan: - Unknown if apparent GI Bleeding, cbc is stable will recheck today - Check a ferritin to confirm Accurate level of iron studies - Consider EGD and complete GI workup especially if black stools persist, and hemoglobin drops Status: Acute Code(s): K92.2 - GASTROINTESTINAL HEMORRHAGE, UNSPECIFIED SNOMED Code(s): 09115846 (2) Breast cancer Narrative/Plan: - Based on the extent of noted disease the patient ideally should have chemotherapy, although because of her multiple medical problems and poor per formance was not a good candidate, this was originally agreed apon by Dr. Flowers and the patients legal Guardian. - Now patient presents with new right Hilar mass, as well as, enlarged mediastinal lymph nodes. No identified progression of disease on CT abdomen and pelvis was noted. - Patient has remained on Arimidex since diagnosis - Ca 15-3 and Ca27-29 were checked and significantly elevated - A contrasted CT or Outpatient PET is reasonable once Creatinine improves - In the Interim continue on Arimidex. - This appears to be progressive disease, if the patients guardian would like to consider more aggressive treatment and options then this can be discussed with Dr. Flowers at an outpatient visit which at that time a determination on repeat biopsy for molecular changes considered. No urgency to perform as inpatient if aggressive treatment is not an agreeable or reasonable option based off her overall performance and co-morbidities. Status: Acute Code(s): C50.919 - MALIGNANT NEOPLASM OF UNSP SITE OF UNSPECIFIED FEMALE BREAST SNOMED Code(s): 575098689 (3) Nausea & vomiting Narrative/Plan: - This is unclear etiology, if continues imaging of the brain could be considered for further metastatic disease Status: Acute Code(s): R11.2 - NAUSEA WITH VOMITING, UNSPECIFIED SNOMED Code(s): 73481621 Plan: defer to the admitting service for management of for multiple other medical problem Diuscussed case with Dr. John meyer to discharge and make appot with dr flowers in 2 weeks
[2018-10-23 16:31] LABS: Basophils % (A) 0 %; Eosinophils # (A) 0.4 k/uL (0-0.7); Eosinophils % (A) 6 %; HCT 28.8 % (34.0-46.0); HGB 10.2 gm/dL (11.4-16.0); Lymphocytes # (A) 1.7 k/uL (1.0-4.8); Lymphocytes % (A) 23 %; MCH 30.8 pg (25.0-35.0); MCHC 35.6 g/dL (31.0-37.0); MCV 86.4 fL (80.0-100.0); Mean Platelet Volume 7.7; Monocytes # (A) 0.4 k/uL (0-1.0); Monocytes % (A) 6 %; Neutrophils # (A) 4.6 k/uL (1.3-7.7); Neutrophils % (A) 63 %; Platelet Count 272 k/uL (150-450); RBC 3.33 m/uL (3.80-5.40); RDW 14.3 % (11.5-15.5); WBC 7.3 k/uL (3.8-10.6)
== END 2018-10-23 19:31 | disposition home or self-care (01) ==
LOC: EC 15:38 → 3NMEDONC 19:44
PROVIDERS: ADMIT Hospitalist; ATTEND Hospitalist
DX: N17.9 Acute kidney failure, unspecified (principal); D72.829 Elevated white blood cell count, unspecified; E03.9 Hypothyroidism, unspecified; C50.912 Malignant neoplasm of unspecified site of left female breast; E78.5 Hyperlipidemia, unspecified; E83.51 Hypocalcemia; E86.0 Dehydration; R07.89 Other chest pain; R06.02 Shortness of breath; C50.911 Malignant neoplasm of unspecified site of right female breast; E87.2 Acidosis; E87.5 Hyperkalemia; R11.2 Nausea with vomiting, unspecified; R10.13 Epigastric pain; R53.83 Other fatigue; I12.9 Hypertensive chronic kidney disease with stage 1 through stage 4 chronic kidney disease, or unspecified chronic kidney disease; N18.9 Chronic kidney disease, unspecified; F41.9 Anxiety disorder, unspecified; D64.9 Anemia, unspecified; R91.8 Other nonspecific abnormal finding of lung field; K62.5 Hemorrhage of anus and rectum; D50.0 Iron deficiency anemia secondary to blood loss (chronic); R59.1 Generalized enlarged lymph nodes; G30.9 Alzheimer's disease, unspecified; J45.20 Mild intermittent asthma, uncomplicated; F02.80 Dementia in other diseases classified elsewhere, unspecified severity, without behavioral disturbance, psychotic disturbance, mood disturbance, and anxiety; E66.3 Overweight; Z68.31 Body mass index [BMI] 31.0-31.9, adult; F32.9 Major depressive disorder, single episode, unspecified; H91.90 Unspecified hearing loss, unspecified ear; K21.9 Gastro-esophageal reflux disease without esophagitis; C79.51 Secondary malignant neoplasm of bone; Z90.13 Acquired absence of bilateral breasts and nipples; Z17.0 Estrogen receptor positive status [ER+]; Z79.82 Long term (current) use of aspirin; Z79.899 Other long term (current) drug therapy; Z79.890 Hormone replacement therapy; Z82.49 Family history of ischemic heart disease and other diseases of the circulatory system; Z83.3 Family history of diabetes mellitus; Z82.3 Family history of stroke; Z90.710 Acquired absence of both cervix and uterus
CPT/HCPCS: 96376 ×4; 96361 ×3; 96372 ×4; 96374; 96375; 99285; 36415; 93005; 80053 ×3; 80048; 86300 ×2; 82330; 82728; 82550; 82553; 83605; 83735; 84100; 84443; 84484 ×2; 85025 ×4; 85027; 85610; 85730; 81003; 87086; 87502; 71046; 76700; 71250; 74176; G0378 ×5; J2270; J1644 ×4; J2405 ×2; S0170 ×4; C9113 ×5

== ENCOUNTER 2018-11-08 12:49 | Inpatient (IN) | payer MEDICARE ==
--- NOTE | 2018-11-08 13:46 | ED ---
General Adult HPI - General Stated complaint: Abd pain Time Seen by Provider: 11/08/18 13:11 Source: patient, family, RN notes reviewed Limitations: no limitations - History of Present Illness Initial comments: 73-year-old female with a complicated past medical history including bilateral breast cancer with double mastectomy in 2017 presents to the emergency department for a chief complaint of pain. Patient has generalized pain of the thorax and abdomen. Patient has had this pain ongoing for quite some time but it did worsen yesterday. Patient was recently seen in the hospital a couple weeks ago and was diagnosed with a right hilar mass with enlarged mediastinal lymph nodes and lesions of the thoracic spine likely metastases. Patient is on Tylenol at home and this is not helping her pain. Patient is passing gas and last had a bowel movement today. No vomiting. Patient is supposed to follow-up with Dr. Boogie stafford an outpatient on the . Patient has no other complaints at this time including shortness of breath, abdominal pain, nausea or vomiting, headache, or visual changes. - Related Data Home Medications Medication Instructions Recorded Confirmed Ranitidine HCl [Zantac] 150 mg PO BID 06/04/14 11/08/18 Aspirin EC [Ecotrin Low Dose] 81 mg PO DAILY 01/03/17 11/08/18 Atorvastatin [Lipitor] 10 mg PO HS 01/03/17 11/08/18 Anastrozole [Arimidex] 1 mg PO DAILY 11/04/17 11/08/18 Ergocalciferol [Vitamin D2 50,000 unit PO GARCIA 11/04/17 11/08/18 (DRISDOL)] FLUoxetine HCL [PROzac] 20 mg PO DAILY 11/04/17 11/08/18 Levothyroxine Sodium [Synthroid] 125 mcg PO DAILY 11/04/17 11/08/18 amLODIPine [Norvasc] 10 mg PO DAILY 11/04/17 11/08/18 Valsartan/Hydrochlorothiazide 1 tab PO DAILY 01/23/18 11/08/18 [Valsartan-Hctz 320-25 mg Tab] ALPRAZolam [Xanax] 0.25 mg PO DAILY 10/19/18 11/08/18 Albuterol Inhaler [Ventolin Hfa 2 puff INHALATION RT-Q6H PRN 10/19/18 11/08/18 Inhaler] Ferrous Sulfate [Iron (65 MG 325 mg PO DAILY 10/19/18 11/08/18 Elemental)] Folic Acid 1 mg PO DAILY 10/19/18 11/08/18 Allergies Allergy/AdvReac Type Severity Reaction Status Date / Time No Known Allergies Allergy Verified 11/08/18 13:10 Review of Systems ROS Statement: Those systems with pertinent positive or pertinent negative responses have been documented in the HPI. ROS Other: All systems not noted in ROS Statement are negative. Past Medical History Past Medical History: Asthma, Cancer, CVA/TIA, Eye Disorder, GERD/Reflux, Hearing Disorder / Deafness, Hyperlipidemia, Hypertension, Memory Impairment, Musculoskeletal Disorder, Syncope, Thyroid Disorder Additional Past Medical History / Comment(s): Hx [place]ASIA Breast Cancer, no radiation or chemotherapy; EDEMA LT ARM. CVA - C/O NUMBNESS LT SIDE, PAIN IN LT ARM, LT HIP. NOT TO USE LT ARM D/T PREV SURGERY.DDD; Constipation History of Any Multi-Drug Resistant Organisms: None Reported Past Surgical History: Hysterectomy, Joint Replacement Additional Past Surgical History / Comment(s): [place]ASIA knee replacment; Double mastectomy 03/13/17 Past Anesthesia/Blood Transfusion Reactions: No Reported Reaction Additional Psychological History / Comment(s): Patient poor historian, slow response and not clear on history - Past Family History Father Family Medical History: Cancer, CVA/TIA, Diabetes Mellitus, Myocardial Infarction ([place]) Mother Family Medical History: Myocardial Infarction ([place]) General Exam General appearance: alert, in no apparent distress Head exam: Present: atraumatic, normocephalic, normal inspection Eye exam: Present: normal appearance, PERRL, EOMI. Absent: scleral icterus, conjunctival injection, periorbital swelling ENT exam: Present: normal exam, normal oropharynx, mucous membranes moist, TM's normal bilaterally, normal external ear exam Neck exam: Present: normal inspection. Absent: tenderness, meningismus, lymphadenopathy Respiratory exam: Present: normal lung sounds bilaterally, chest wall tenderness (Patient has significant chest wall tenderness and tries to hit me when I press on her chest). Absent: respiratory distress, wheezes, rales, rhonchi, stridor Cardiovascular Exam: Present: regular rate, normal rhythm, normal heart sounds. Absent: systolic murmur, diastolic murmur, rubs, gallop, clicks GI/Abdominal exam: Present: soft, normal bowel sounds. Absent: distended, tenderness (Nontender abdomen), guarding, rebound, rigid Neurological exam: Present: alert, oriented X3, CN II-XII intact Psychiatric exam: Present: normal affect, normal mood Course Vital Signs 11/08/18 11/08/18 11/08/18 13:00 15:00 16:00 Temperature 98.1 F Pulse Rate 74 78 72 Respiratory 18 20 20 Rate Blood Pressure 144/80 144/64 152/68 O2 Sat by Pulse 99 99 96 Oximetry 11/08/18 11/08/18 11/08/18 18:00 18:52 20:00 Temperature 98.9 F 97.9 F Pulse Rate 59 L 68 71 Respiratory 20 20 20 Rate Blood Pressure 145/65 112/50 135/68 O2 Sat by Pulse 99 96 95 Oximetry Medical Decision Making - Medical Decision Making 73-year-old female with a complicated past medical history including bilateral breast cancer with double mastectomy presents for pain. Patient has generalized thorax and abdomen pain. This is been going on for quite some time but has worsened. Patient is a poor historian due to history of dementia.. Patient was recently found to have metastases of the thoracic spine as well as a right hilar mass. Patient was taking Tylenol at home but this was not helping her pain. In the emergency department today patient has reproducible chest pain. CBC unrem arkable. CMP does have an elevated creatinine of 1.7 which is only minimally elevated about patient's baseline. Patient does appear to have a urinary tract infection, given Rocephin. Patient initially given morphine which did not improve her symptoms. Patient was then given Dilaudid and is now resting comfortably. I did discuss the patient's family possibility of discharging home with home meds to follow-up with oncology outpatient. However they are very uncomfortable taking patient home given apparent degree of pain she is bending. - Lab Data Result diagrams: 11/08/18 14:50 11/08/18 14:50 Lab Results 11/08/18 11/08/18 11/08/18 Range/Units 14:50 14:50 16:00 WBC 12.8 H (3.8-10.6) k/uL RBC 3.69 L (3.80-5.40) m/uL Hgb 10.9 L (11.4-16.0) gm/dL Hct 33.4 L (34.0-46.0) % MCV 90.4 (80.0-100.0) fL MCH 29.5 (25.0-35.0) pg MCHC 32.6 (31.0-37.0) g/dL RDW 14.4 (11.5-15.5) % Plt Count 337 (150-450) k/uL Neutrophils % 85 % Lymphocytes % 9 % Monocytes % 4 % Eosinophils % 1 % Basophils % 0 % Neutrophils # 10.9 H (1.3-7.7) k/uL Lymphocytes # 1.1 (1.0-4.8) k/uL Monocytes # 0.5 (0-1.0) k/uL Eosinophils # 0.1 (0-0.7) k/uL Basophils # 0.0 (0-0.2) k/uL Sodium 140 (137-145) mmol/L Potassium 4.8 (3.5-5.1) mmol/L Chloride 105 (98-107) mmol/L Carbon Dioxide 23 (22-30) mmol/L Anion Gap 12 mmol/L BUN 31 H (7-17) mg/dL Creatinine 1.87 H (0.52-1.04) mg/dL Est GFR (CKD-EPI)AfAm 30 (>60 ml/min/1.73 sqM) Est GFR (CKD-EPI)NonAf 26 (>60 ml/min/1.73 sqM) Glucose 119 H (74-99) mg/dL Calcium 10.2 (8.4-10.2) mg/dL Magnesium 1.9 (1.6-2.3) mg/dL Total Bilirubin 0.4 (0.2-1.3) mg/dL AST 22 (14-36) U/L ALT 33 (9-52) U/L Alkaline Phosphatase 145 H (38-126) U/L Total Protein 7.4 (6.3-8.2) g/dL Albumin 4.4 (3.5-5.0) g/dL Amylase 89 (30-110) U/L Lipase 185 (23-300) U/L Urine Color Yellow Urine Appearance Clear (Clear) Urine pH 5.0 (5.0-8.0) Ur Specific [place] 1.016 (1.001-1.035) Urine Protein Negative (Negative) Urine Glucose (UA) Negative (Negative) Urine Ketones Negative (Negative) Urine Blood Negative (Negative) Urine Nitrite Negative (Negative) Urine Bilirubin Negative (Negative) Urine Urobilinogen <2.0 (<2.0) mg/dL Ur Leukocyte Esterase Large H (Negative) Urine RBC <1 (0-5) /hpf Urine WBC 36 H (0-5) /hpf Ur Squamous Epith Cells <1 (0-4) /hpf Urine Bacteria Rare H (None) /hpf Hyaline Casts 11 H (0-2) /lpf Urine Mucus Rare H (None) /hpf Disposition Clinical Impression: Intractable pain, Metastasis, Primary breast cancer, Urinary tract infection Disposition: ADMITTED IP TO THIS HOSP Condition: Fair Is patient prescribed a controlled substance at d/c from ED?: No Time of Disposition: 18:25
[2018-11-08] MEDS ORDERED: ONDANSETRON 4 MG/2 ML VIAL IVP STA (13:49)
[2018-11-08] MEDS ORDERED: MORPHINE SULFATE 4 MG/ML SYRINGE IV STA (13:49)
[2018-11-08] MEDS ORDERED: SODIUM CHLORIDE 0.9% 500 ML 500 ML IV STA ×2 (13:49→16:46)
[2018-11-08 15:08] LABS: Basophils % (A) 0 %; Eosinophils # (A) 0.1 k/uL (0-0.7); Eosinophils % (A) 1 %; HCT 33.4 % (34.0-46.0); HGB 10.9 gm/dL (11.4-16.0); Lymphocytes # (A) 1.1 k/uL (1.0-4.8); Lymphocytes % (A) 9 %; MCH 29.5 pg (25.0-35.0); MCHC 32.6 g/dL (31.0-37.0); MCV 90.4 fL (80.0-100.0); Mean Platelet Volume 7.7; Monocytes # (A) 0.5 k/uL (0-1.0); Monocytes % (A) 4 %; Neutrophils # (A) 10.9 k/uL (1.3-7.7); Neutrophils % (A) 85 %; Platelet Count 337 k/uL (150-450); RBC 3.69 m/uL (3.80-5.40); RDW 14.4 % (11.5-15.5); WBC 12.8 k/uL (3.8-10.6)
[2018-11-08 15:15] LABS: Albumin 4.4 g/dL (3.5-5.0); Calcium 10.2 mg/dL (8.4-10.2); Magnesium 1.9 mg/dL (1.6-2.3); Potassium 4.8 mmol/L (3.5-5.1); Total Bilirubin 0.4 mg/dL (0.2-1.3); Total Protein 7.4 g/dL (6.3-8.2)
[2018-11-08] MEDS ORDERED: HYDROmorphone 1 MG/ML 1 ML SYRINGE IVP STA (15:54)
[2018-11-08 16:08] LABS: Appearance,Urine Clear (Clear); Bacteria,Urine Rare /hpf; Bilirubin,Urine Negative (Negative); Blood,Urine Negative (Negative); Color,Urine Yellow; Glucose,Urine (UA) Negative (Negative); Hyaline Casts,Urine 11 /lpf (0-2); Ketones,Urine Negative (Negative); Leukocyte Esterase,Urine Large (Negative); Mucus,Urine Rare /hpf; Nitrite,Urine Negative (Negative); Protein,Urine Negative (Negative); RBC,Urine <1 /hpf (0-5); Specific Gravity,Urine 1.016 (1.001-1.035); Squamous Epithelial Cell,Urine <1 /hpf (0-4); Urobilinogen,Urine <2.0 mg/dL (<2.0); WBC,Urine 36 /hpf (0-5)
[2018-11-08] MEDS ORDERED: cefTRIAXone IN SWFI 1,000 MG/10 ML SYRINGE IVP STA (16:46)
[2018-11-08] MEDS ORDERED: NALOXONE 0.4 MG/ML 1 ML VIAL IV PRN (18:14)
[2018-11-08] MEDS: SODIUM CHLORIDE 0.9% 1,000 ML IV SCH (18:43)
[2018-11-08 20:51] VITALS: BMI 30.4
[2018-11-08] MEDS ORDERED: ALBUTEROL NEBULIZED 2.5 MG/3 ML INHALATION PRN (21:18)
[2018-11-08] MEDS: HYDROmorphone 0.5 MG/0.5 ML SYRINGE IVP PRN (21:23)
[2018-11-08] MEDS: ONDANSETRON 4 MG/2 ML VIAL IVP PRN (22:39)
[2018-11-09] MEDS: HYDROmorphone 0.5 MG/0.5 ML SYRINGE IVP PRN ×2 (03:19→09:42)
[2018-11-09] MEDS: ONDANSETRON 4 MG/2 ML VIAL IVP PRN ×2 (05:58→20:14)
[2018-11-09] MEDS: LEVOTHYROXINE 125 MCG TAB PO SCH (08:34)
[2018-11-09] MEDS: ALPRAZolam 0.25 MG TAB PO SCH (08:34)
[2018-11-09] MEDS: FERROUS SULFATE 325 MG TAB PO SCH (08:35)
[2018-11-09] MEDS: ANASTROZOLE 1 MG TAB PO SCH (08:35)
[2018-11-09] MEDS: VALSARTAN 160 MG TAB PO SCH (08:36)
[2018-11-09] MEDS: FLUoxetine HCL 20 MG CAP PO SCH (08:36)
[2018-11-09] MEDS: HYDROCHLOROTHIAZIDE 25 MG TAB PO SCH (08:36)
[2018-11-09] MEDS: FOLIC ACID 1 MG TAB PO SCH (08:36)
[2018-11-09] MEDS: ASPIRIN 81 MG PO SCH (08:36)
[2018-11-09] MEDS: amLODIPine 10 MG TAB PO SCH (08:36)
[2018-11-09] MEDS: FAMOTIDINE 20 MG TAB PO SCH (08:36)
[2018-11-09] MEDS: SODIUM CHLORIDE 0.9% 1,000 ML IV SCH (08:40)
[2018-11-09] MEDS ORDERED: NON-FORMULARY DRUG (Valsartan/Hydrochlorothiazide [Valsartan-Hctz 320-25 Mg Tab] 1 TAB) PO SCH (09:00)
--- NOTE | 2018-11-09 18:50 | HP ---
HISTORY AND PHYSICAL DATE OF SERVICE: 11/08/2018 DATE OF SERVICE: 11/09/2018 PRESENTING COMPLAINT: Right chest wall pain. HISTORY OF PRESENTING COMPLAINT: This is a pleasant 73-year-old patient who follows with visiting physician Dr. Hernan Cruz. Chronic stable medical conditions include asthma, GERD, hearing disorder, hyperlipidemia, hypertension, hypothyroid, bilateral breast cancer, prior stroke with numbness on the left side, and chronic constipation. The patient thinks she had a fall and was having right-sided chest wall pain and tender with certain body movements. She is able to tolerate her diet; has been having. No fever. No chills. REVIEW OF SYSTEMS: CONSTITUTIONAL: None. HEENT: Some decreased hearing. RESPIRATORY: None. CARDIOVASCULAR: None. GASTROINTESTINAL: None. GENITOURINARY: None. MUSCULOSKELETAL: Pain in different joints. DERMATOLOGICAL: None. HEMATOLOGICAL: None. LYMPHATICS: None. PSYCHIATRY: Forgetful. NEUROLOGICAL: None. PAST MEDICAL HISTORY: 1. Asthma. 2. Eye disorder. 3. GERD. 4. Hearing disorder. 5. Hyperlipidemia. 6. Hypertension. 7. Osteoarthritis. 8. Hypothyroid. 9. Bilateral breast cancer. 10.Stroke with some numbness on the left side. PAST SURGICAL HISTORY: 1. Hysterectomy. 2. Bilateral knee replacement. 3. Double mastectomy in 2017. PSYCH HISTORY: Anxiety, depression. SOCIAL HISTORY: The patient started smoking at the age of 20. Smoked about a pack a day, stopped in 2009. Alcohol none. FAMILY HISTORY: Diabetes and stroke. HOME MEDICATIONS: 1. Amlodipine 10 mg a day. 2. Valsartan hydrochlorothiazide 1 tablet p.o. daily. 3. Zantac 150 mg p.o. b.i.d. 4. Synthroid 125 mcg p.o. daily. 5. Folic acid 1 mg p.o. daily. 6. Iron 325 p.o. daily. 7. Prozac 20 mg p.o. daily. 8. Vitamin D2 50,000 units p.o. on Tuesday. 9. Lipitor 10 mg at bedtime. 10.Aspirin 81 mg p.o. daily. 11.Arimidex 1 mg p.o. daily. 12.Ventolin HFA 2 puffs q.6 p.r.n. 13.Xanax 0.25 p.o. daily. ALLERGIES: NONE. PHYSICAL EXAMINATION: Temperature 98.1, pulse 74, respiration 18, blood pressure 144/80, pulse ox 99% on room air. GENERAL APPEARANCE: Well built; BMI of 31.0. Sitting up. Somewhat uncomfortable. EYES: Pupils equal. Conjunctivae normal. HEENT: External appearance of nose and ears normal. Oral cavity normal. NECK: JVD not raised. Mass not palpable. RESPIRATORY: Effort normal. LUNGS: Slightly decreased breath sounds. CARDIOVASCULAR: First and second sounds normal. No edema. ABDOMEN: Soft, non-tender. Liver and spleen not palpable. LYMPHATIC: No lymph node palpable in neck or axillae. PSYCHIATRY: Able to answer simple questions, though sometimes slow. NEUROLOGICAL: Pupils equal. No facial asymmetry. Power and sensation grossly intact. INVESTIGATIONS: White count 12.8, hemoglobin 10.9, platelets 337. Potassium 4.8. BUN 31, creatinine 1.87. Patient's BUN and creatinine were 25 and 1.58 on 10/22/2018. ASSESSMENT: 1. Right chest wall pain, probably musculoskeletal secondary to recent fall on the right side. 2. Chronic kidney disease, stage II, probably from nephrosclerosis. 3. Right hilar lung mass for outpatient workup per Pulmonary. 4. Gastroesophageal reflux disease. 5. Hearing disorder. 6. Essential hypertension. 7. Hyperlipidemia. 8. Hypothyroid. 9. Anxiety, depression not otherwise specified. PLAN: Home medications are resumed. Will get a heating pad for the right side. The patient was seen by Dr. Alcazar on her last admission. Patient cannot be given NSAIDs because of renal function. Will try more local heat treatment and also get x-rays to rule out any fracture on the right side. MMODL / IJN: [id number] /
--- NOTE | 2018-11-09 19:05 | HP ---
HISTORY AND PHYSICAL ADDENDUM TO HISTORY AND PHYSICAL: DATE OF ADMISSION: 11/08/2018 DATE OF SERVICE: 11/09/2018 ADDENDUM: Patient's UA showed leukocyte esterase; also 11 hyaline casts. Patient has no urinary symptoms. This is asymptomatic bacteria and will not be treated any further. MMODL / IJN: [id number] /
[2018-11-09] MEDS: ATORVASTATIN 10 MG TAB PO SCH (20:01)
[2018-11-09] MEDS: ENOXAPARIN 40 MG/0.4 ML SYRINGE SQ SCH (20:01)
[2018-11-09] MEDS ORDERED: HYDROcodone/APAP 5-325MG 1 EACH TAB PO PRN (20:37)
--- NOTE | 2018-11-09 21:17 | P.CONS ---
History of Present Illness - Reason for Consult Consult date: 11/09/18 malignancy history, RUL lung mass Requesting physician: Brijesh Puentes - Chief Complaint right chest/axilla pain - History of Present Illness Ms. Adams is a very pleasant female pt of Dr. Live with a history of left breast cancer in 2016, [place] + Her2 neg, staging CT CAP 11/24/16 revealed no convincing evidence of metastatic disease, bone scan was negative. Treated with arimidex neoadjuvantly starting 11/30/16. 03/23/17 she had bilateral mastectomies, left axillary nodes resection and right sentinel nodes biopsy, pathology revealed multifocal invasive carcinoma in left breast, largest 3.2cm, 3/9 nodes were positive for macrometastasis, DCIS and 1.3mm invasive cancer in Right breast and one sentinel node with possible micrometastasis. After discussion about adjuvant chemotherapy with the patient and her niece, who was her legal guardian at that time, she decided against chemotherapy and to continue with arimidex. Her last follow up was in March/2017, she did well until October/2018, when she presented to hospital with possible rectal bleeding, Hgb remained stable, CXR was suspicious for right hilar mass, CT revealed 2.5cm right in frahilar mass, multiple suspicious osseous lesions in her spine. She was seen by Dr. Live On 11/01 with a plan for biopsy of the lung mass with Dr. Peters. Unfortunately patient's pain progressed, which is why she is here in the hospital. Patient is a poor historian. Patient is not able to tell me if the pain medications are helpful, she just knows that if she moves or coughs or ambulates she has more pain. She denies coughing up of blood Review of Systems ROS unobtainable: due to mental status Past Medical History Past Medical History: Asthma, Cancer, CVA/TIA, Eye Disorder, GERD/Reflux, Hearing Disorder / Deafness, Hyperlipidemia, Hypertension, Memory Impairment, Musculoskeletal Disorder, Syncope, Thyroid Disorder Additional Past Medical History / Comment(s): Hx [place]ASIA Breast Cancer, no radiation or chemotherapy; EDEMA LT ARM. CVA - C/O NUMBNESS LT SIDE, PAIN IN LT ARM, LT HIP. NOT TO USE LT ARM D/T PREV SURGERY.DDD; Constipation History of Any Multi-Drug Resistant Organisms: None Reported Past Surgical History: Hysterectomy, Joint Replacement Additional Past Surgical History / Comment(s): [place]ASIA knee replacment; Double mastectomy 03/13/17 Past Anesthesia/Blood Transfusion Reactions: No Reported Reaction Additional Psychological History / Comment(s): Patient poor historian, slow response and not clear on history - Past Family History Father Family Medical History: Cancer, CVA/TIA, Diabetes Mellitus, Myocardial Infarction ([place]) Mother Family Medical History: Myocardial Infarction (VT) Medications and Allergies Home Medications Medication Instructions Recorded Confirmed Type Ranitidine HCl [Zantac] 150 mg PO BID 06/04/14 11/08/18 History Aspirin EC [Ecotrin Low Dose] 81 mg PO DAILY 01/03/17 11/08/18 History Atorvastatin [Lipitor] 10 mg PO HS 01/03/17 11/08/18 History Anastrozole [Arimidex] 1 mg PO DAILY 11/04/17 11/08/18 History Ergocalciferol [Vitamin D2 50,000 unit PO GARCIA 11/04/17 11/08/18 History (SRIKANTHOL)] FLUoxetine HCL [PROzac] 20 mg PO DAILY 11/04/17 11/08/18 History Levothyroxine Sodium [Synthroid] 125 mcg PO DAILY 11/04/17 11/08/18 History amLODIPine [Norvasc] 10 mg PO DAILY 11/04/17 11/08/18 History Valsartan/Hydrochlorothiazide 1 tab PO DAILY 01/23/18 11/08/18 History [Valsartan-Hctz 320-25 mg Tab] ALPRAZolam [Xanax] 0.25 mg PO DAILY 10/19/18 11/08/18 History Albuterol Inhaler [Ventolin Hfa 2 puff INHALATION RT-Q6H PRN 10/19/18 11/08/18 History Inhaler] Ferrous Sulfate [Iron (65 MG 325 mg PO DAILY 10/19/18 11/08/18 History Elemental)] Folic Acid 1 mg PO DAILY 10/19/18 11/08/18 History Allergies Allergy/AdvReac Type Severity Reaction Status Date / Time No Known Allergies Allergy Verified 11/08/18 13:10 Physical Exam Vitals: Vital Signs Temp Pulse Pulse Resp BP BP Pulse Ox 11/09/18 13:42 98.0 F 72 16 120/73 90 L 11/09/18 09:00 97.8 F 72 16 131/71 94 L 11/09/18 06:15 97.9 F 101 H 22 161/70 96 11/08/18 21:42 97.7 F 74 18 140/57 95 11/08/18 20:00 97.9 F 71 20 135/68 95 11/08/18 18:52 98.9 F 68 20 112/50 96 11/08/18 18:00 59 L 20 145/65 99 Intake and Output 11/09/18 11/09/18 11/09/18 06:59 14:59 22:59 Intake Total 1440 Balance 1440 Intake: Intake, IV Titration 640 Amount Sodium Chloride 0.9% 1, 640 000 ml @ 75 mls/hr IV . [id number] [facility] Rx#:[id number] Oral 800 Other: Voiding Method Toilet Toilet Diaper Diaper # Voids 2 1 - Constitutional General appearance: cooperative, disheveled, obese, severe distress - EENT Eyes: anicteric sclerae, EOMI ENT: normal oropharynx - Neck Neck: no lymphadenopathy - Respiratory Respiratory: bilateral: CTA (weak inspiratory effort) - Cardiovascular Rhythm: regular Heart sounds: normal: S1, S2 Abnormal Heart Sounds: no systolic murmur, no diastolic murmur, no rub, no S3 Gallop, no S4 Gallop, no click, no other leg Peripheral Edema: bilateral: None - Gastrointestinal General gastrointestinal: no absent bowel sounds, no decreased bowel sounds, no distended, no hepatomegaly, no hyperactive bowel sounds, normal bowel sounds, no organomegaly, no rigid, no scaphoid, soft, no splenomegaly, no tenderness, no umbilical hernia, no ventral hernia - Integumentary Integumentary: pale - Musculoskeletal Musculoskeletal: generalized weakness - Psychiatric patient highly anxious, unable to remember that she saw Dr. Live recently Psychiatric: A&O x's 3, no appropriate affect, no intact judgment & insight Results CBC & Chem 7: 11/08/18 14:50 11/08/18 14:50 Labs: Microbiology - Last 24 Hours (Table) 11/08/18 16:00 Urine Culture - Preliminary Urine,Voided Assessment and Plan (1) Lung mass Narrative/Plan: Case was discussed with Pulmonary. They will evaluate patient in the a.m. and consider patient for procedure while she is inpatient. Current Visit: Yes Status: Acute Priority: High Code(s): R91.8 - OTHER NONSPECIFIC ABNORMAL FINDING OF LUNG FIELD SNOMED Code(s): 742350789 (2) Intractable pain Narrative/Plan: We'll make adjustments to patient's pain medications and evaluated in the a.m. Bowel protocol to prevent narcotic-induced constipation Current Visit: Yes Status: Acute Priority: High Code(s): R52 - PAIN, UNSPECIFIED SNOMED Code(s): 70301828
[2018-11-10] MEDS: HYDROcodone/APAP 7.5-325MG 1 EACH TAB PO PRN ×2 (01:42→12:28)
[2018-11-10] MEDS: LEVOTHYROXINE 125 MCG TAB PO SCH (06:36)
[2018-11-10] MEDS: ALPRAZolam 0.25 MG TAB PO SCH (08:37)
[2018-11-10] MEDS: HYDROCHLOROTHIAZIDE 25 MG TAB PO SCH (08:37)
[2018-11-10] MEDS: ASPIRIN 81 MG PO SCH (08:38)
[2018-11-10] MEDS: ENOXAPARIN 40 MG/0.4 ML SYRINGE SQ SCH (08:38)
[2018-11-10] MEDS: ANASTROZOLE 1 MG TAB PO SCH (08:38)
[2018-11-10] MEDS: FOLIC ACID 1 MG TAB PO SCH (08:38)
[2018-11-10] MEDS: FAMOTIDINE 20 MG TAB PO SCH (08:38)
[2018-11-10] MEDS: FLUoxetine HCL 20 MG CAP PO SCH (08:38)
[2018-11-10] MEDS: amLODIPine 10 MG TAB PO SCH (08:38)
[2018-11-10] MEDS: DOCUSATE 100 MG CAP PO SCH (08:38)
[2018-11-10] MEDS: VALSARTAN 160 MG TAB PO SCH (08:39)
[2018-11-10] MEDS: FERROUS SULFATE 325 MG TAB PO SCH (12:28)
--- NOTE | 2018-11-10 14:26 | CONS ---
CONSULTATION This is a 73-year-old female who was admitted to the hospital on November 08. She apparently came into the emergency room complaining of generalized pain in the right upper chest area and abdominal area. It has been going on for quite some time, had gotten worse. She was recently in the hospital. I saw her in consultation on October 19. I was asked to see her because of a new right-sided hilar mass. It was a bilobed right hilar mass. Initially, Oncology could not make a decision as to what they wanted to do and the patient was scared to have a biopsy. She apparently was seen by my partner, Dr. Peters on that admission, he recommended an outpatient PET scan. That was never done and the patient was readmitted. Again her primary issue right now is primarily pain. The pain is in the right upper chest area and abdominal area. She denies other complaints at this time including cough, wheezing, shortness of breath, phlegm production, coughing up blood, fever, chills, or other complaints. . HOME MEDICATIONS: Include ranitidine, aspirin, atorvastatin, Arimidex, vitamin D2, Prozac, levothyroxine, amlodipine, valsartan/hydrochlorothiazide, Xanax, albuterol inhaler, ferrous sulfate and folic acid. ALLERGIES: Denied. MEDICAL HISTORY: Includes mild asthma, metastatic breast cancer with multiple skeletal metastases particularly in the thoracic spine, GERD, deafness, hyperlipidemia, hypertension, memory impairment, syncope. She also suffers from hypothyroidism. Her breast cancer is bilateral. She also had some left arm edema as well. SURGICAL HISTORY: Includes among other things hysterectomy, joint replacement, bilateral knee replacements, double mastectomy back in February 2017 at which time the cancer diagnosis was made. SOCIAL HISTORY: Positive for previous remote tobacco use. She has smoked for a very short period of time, very many years back. Denies any alcohol or illicit drug use. FAMILY HISTORY: Positive for CVA, diabetes, myocardial infarction. REVIEW OF SYSTEMS: CONSTITUTIONAL: Negative. NEUROLOGIC: Negative. HEENT: Negative. CARDIOVASCULAR: Negative. PULMONARY: Negative. GI: Abdominal pain. : Negative. RHEUMATOLOGIC: Right shoulder and right upper chest pain. IMMUNOLOGIC: Negative. ENDOCRINOLOGIC: Negative. DERMATOLOGIC: Negative. Current vital signs are reviewed. Temperature 97.7, heart rate 73, respiratory rate 16, blood pressure 133/69 mean 90, room air saturation 93%. She appears in no acute distress. HEENT: Examination is grossly unremarkable. Mucous membranes are moist. NECK: Supple. Full range of motion. No adenopathy. CARDIOVASCULAR: Examination reveals regular rhythm and rate. Heart rate is 73 beats per minute. S1, S2 normal. Heart sounds are distant. No murmur. LUNGS: Reveal mostly clear breath sounds. No wheezes, rhonchi, or crackles to speak of. ABDOMEN: Soft. Mild tenderness on palpation. EXTREMITIES: Intact. No edema. SKIN: Without rash. NEUROLOGIC: Examination is brief but nonfocal. Labs are reviewed. Nothing new to report on this patient. LABS: From November 08 show white count 12.8, hemoglobin 10.9, and normal platelet count. BUN and creatinine were 31 and 1.87. Urine showed large positive for leukocyte esterase, 36 WBCs, rare bacteria. She may in fact have a urinary tract infection. No recent chest x-rays to report. Her chest x-ray and CT scan from her last admission is reviewed. The lesion in the right hilum is bilobed. Current medications include all the usual including albuterol updrafts, but no antibiotics. ASSESSMENT: 1. Right hilar mass, bilobed, which may represent metastatic breast cancer and/or new primary such as lung cancer. 2. Recent admission for gastrointestinal bleed with anemia. 3. Widely metastatic breast cancer, status post bilateral mastectomy with multiple skeletal metastatic metastasis in the thoracic spine. 4. History of mild asthma. 5. History of cerebrovascular accident. 6. History of gastroesophageal reflux disease. 7. History of deafness. 8. Hyperlipidemia by history. 9. History of hypertension. 10.History of dementia. 11.Syncope. 12.Hypothyroidism. PLAN: The patient will be placed on the schedule for possible navigational bronchoscopy with Dr. Peters. I discussed this with the nurse practitioner. He apparently wanted to do the procedure anyway. I just thought that it might be better done with control of the patient given her body habitus and so forth. Until that time, will continue to follow the patient. No additional recommendations are made. Prognosis is guarded. Additional recommendations and suggestions are forthcoming. MMODL / SHABNAMN: [id number] /
--- NOTE | 2018-11-10 17:03 | P.PN ---
Subjective Progress Note Date: 11/10/18 Principal diagnosis: Right chest and axillary pain In follow-up today patient looks much more comfortable and yesterday, she feels that her pain is better controlled. She has no other complaints at this time. Objective - Vital Signs Vital signs: Vital Signs Temp 97.7 F 11/10/18 11:57 Pulse 73 11/10/18 11:57 Resp 16 11/10/18 11:57 BP 133/69 11/10/18 11:57 Pulse Ox 93 L 11/10/18 11:57 Intake & Output 11/09/18 11/10/18 11/10/18 18:59 06:59 18:59 Intake Total 1440 225 590 Balance 1440 225 590 Intake: Intake, IV Titration 640 225 Amount Sodium Chloride 0.9% 1, 640 225 000 ml @ 75 mls/hr IV . [id number] [facility] Rx#:[id number] Oral 800 590 Other: Voiding Method Toilet Toilet Diaper Diaper # Voids 1 1 2 - Exam Well-developed, overweight female, laying in bed, no acute distress, patient is much more calm than yesterday, able to carry on a conversation, no tremors noted, respirations even and unlabored - Labs CBC & Chem 7: 11/08/18 14:50 11/08/18 14:50 Labs: Microbiology - Last 24 Hours (Table) 11/08/18 18:19 Blood Culture - Preliminary Blood No Growth after 24 hours 11/08/18 16:00 Urine Culture - Final Urine,Voided Assessment and Plan (1) Lung mass Narrative/Plan: Bronch and biopsy planned while inpatient. Current Visit: Yes Status: Acute Priority: High Code(s): R91.8 - OTHER NONSPECIFIC ABNORMAL FINDING OF LUNG FIELD SNOMED Code(s): 971042959 (2) Intractable pain Narrative/Plan: Pain medications adjusted, much improved pain control. Bowel protocol to prevent narcotic-induced constipation Current Visit: Yes Status: Acute Priority: High Code(s): R52 - PAIN, UNSPECIFIED SNOMED Code(s): 05444151 (3) History of breast cancer Narrative/Plan: Continue Arimidex Pending biopsy of lung mass for pathology Current Visit: Yes Status: Chronic Priority: Medium Code(s): Z85.3 - PERSONAL HISTORY OF MALIGNANT NEOPLASM OF BREAST SNOMED Code(s): 648397021
[2018-11-10] MEDS: ATORVASTATIN 10 MG TAB PO SCH (20:28)
[2018-11-11 05:43] VITALS: RESP 16
[2018-11-11] MEDS: LEVOTHYROXINE 125 MCG TAB PO SCH (06:18)
--- NOTE | 2018-11-11 08:18 | PN ---
PROGRESS NOTE DATE OF SERVICE: November 10, 2018. PRESENTING COMPLAINT: Right chest wall pain. INTERVAL HISTORY: This is a patient with multiple medical problems. Also has got a lung mass, being followed by Pulmonary. They are planning to do a bronchoscopy. Chest wall pain is somewhat better. Did tolerate some diet. Resting in bed. REVIEW OF SYSTEMS: Done for constitutional, cardiovascular, GI, pulmonary; relevant findings as above. CURRENT MEDICATIONS: Reviewed. PHYSICAL EXAMINATION: VITAL SIGNS: Temperature 97.7, pulse 73, respiratory rate 16, blood pressure 133/69, pulse ox 93 percent on room air. GENERAL APPEARANCE: Sitting up, more comfortable today. EYES: Pupils are equal. Conjunctivae normal. NECK: JVD not raised. Mass not palpable. RESPIRATORY: Effort normal. LUNGS: Decreased breath sounds. CARDIOVASCULAR: First and second sounds normal. No edema. ABDOMEN: Soft, nontender. Liver and spleen not palpable. PSYCHIATRY: Awake, answering questions. INVESTIGATIONS: No blood work from today. ASSESSMENT: 1. Right chest wall pain probably musculoskeletal from recent fall. Cannot rule out underlying malignancy that may be causing the pain. 2. Right hilar mass for bronchoscopy per Pulmonary. 3. Chronic kidney stage 2 from nephrosclerosis. 4. Gastroesophageal reflux disease. 5. Hearing disorder. 6. Essential hypertension. 7. Hyperlipidemia. 8. Hypothyroid. 9. Anxiety and depression, not otherwise specified. PLAN: Continue current medication and treatment plan. The patient is somewhat better. We will discuss with the family, go from there. MMODL / IJN: [id number] /
[2018-11-11] MEDS: FLUoxetine HCL 20 MG CAP PO SCH (08:20)
[2018-11-11] MEDS: FERROUS SULFATE 325 MG TAB PO SCH (08:20)
[2018-11-11] MEDS: ALPRAZolam 0.25 MG TAB PO SCH (08:20)
[2018-11-11] MEDS: DOCUSATE 100 MG CAP PO SCH (08:20)
[2018-11-11] MEDS: ANASTROZOLE 1 MG TAB PO SCH (08:20)
[2018-11-11] MEDS: VALSARTAN 160 MG TAB PO SCH (08:20)
[2018-11-11] MEDS: HYDROCHLOROTHIAZIDE 25 MG TAB PO SCH (08:20)
[2018-11-11] MEDS: FOLIC ACID 1 MG TAB PO SCH (08:20)
[2018-11-11] MEDS: amLODIPine 10 MG TAB PO SCH (08:20)
[2018-11-11] MEDS: FAMOTIDINE 20 MG TAB PO SCH (08:20)
[2018-11-11] MEDS: ASPIRIN 81 MG PO SCH (08:20)
[2018-11-11] MEDS ORDERED: ENOXAPARIN 30 MG/0.3 ML SYRINGE SQ SCH (09:00)
--- NOTE | 2018-11-11 12:22 | P.PN ---
Subjective Progress Note Date: 11/11/18 Principal diagnosis: Right hilar mass, bilobed, suspect metastatic breast cancer or new lung primary. The patient is seen today 11/11/2017 in follow-up on the oncology unit. She is currently awake and alert in no acute distress. She is resting fairly comfortably in bed. The right-sided chest discomfort has improved today as compared to yesterday. She is maintaining good O2 saturations in the 90s on room air. She's been afebrile. Hemodynamically stable. Blood and urine cultures reveal no growth. Objective - Vital Signs Vital signs: Vital Signs Temp 97.9 F 11/11/18 05:42 Pulse 75 11/11/18 05:42 Resp 16 11/11/18 05:42 BP 148/78 11/11/18 05:42 Pulse Ox 96 11/11/18 09:18 Intake & Output 11/10/18 11/11/18 11/11/18 18:59 06:59 18:59 Intake Total 590 1490 Balance 590 1490 Intake: Intake, IV Titration 900 Amount Sodium Chloride 0.9% 1, 900 000 ml @ 75 mls/hr IV . [id number] [facility] Rx#:[id number] Oral 590 590 Other: Voiding Method Toilet Diaper # Voids 2 5 - Exam GENERAL EXAM: Alert, active, comfortable in no apparent distress. On room air. HEAD: Normocephalic. EYES: Normal reaction of pupils, equal size. NOSE: Clear with pink turbinates. THROAT: No erythema or exudates. NECK: No masses, no JVD. CHEST: No chest wall deformity. Some right-sided chest wall discomfort. LUNGS: Equal air entry with no crackles, wheeze, rhonchi or dullness. CVS: S1 and S2 normal with no audible murmur, regular rhythm. ABDOMEN: No hepatosplenomegaly, normal bowel sounds, no guarding or rigidity. SPINE: No scoliosis or deformity SKIN: No rashes CENTRAL NERVOUS SYSTEM: No focal deficits, tone is normal in all 4 extremities. EXTREMITIES: There is no peripheral edema. No clubbing, no cyanosis. Peripheral pulses are intact. - Labs CBC & Chem 7: 11/08/18 14:50 11/08/18 14:50 Labs: Microbiology - Last 24 Hours (Table) 11/08/18 18:19 Blood Culture - Preliminary Blood No Growth after 48 hours Assessment and Plan Assessment: Impression: #1 Right hilar mass, bilobed, may represent metastatic breast cancer versus new lung primary. Navigational bronchoscopy and biopsies pending for 11/13/2018. #2 Recent admission for GI bleeding with anemia. #3 Widely metastatic breast cancer, status post bilateral mastectomy with multiple skeletal metastatic lesions in the thoracic spine. #4 History of mild intermittent chronic bronchial asthma. #5 History of cerebral vascular accident. #6 GERD. #7 Hearing disorder. #8 Hyperlipidemia. #9 Hypertension. #10 History of dementia. #11 Hypothyroidism. Plan: The patient was seen and evaluated by Dr. Alcazar. She is currently stable from the pulmonary standpoint. We'll plan for navigational bronchoscopy on 11/13/2018 with biopsies to determine if the right hilar mass is a new lung primary versus metastatic breast cancer. She will follow-up with Dr. Live in regards to a treatment plan from there. We'll continue to follow. I, the cosigning physician, performed a history & physical examination of the patient. Lungs sounds are clear. Maintaining good O2 saturations in the 90s on room air. I discussed the assessment and plan of care with my nurse practitioner, Jenelle Guzman. I attest to the above note as dictated by her.
[2018-11-11 14:20] VITALS: BP 162/73; PULSE 88; TEMP 97.6
--- NOTE | 2018-11-11 23:41 | DS ---
DISCHARGE SUMMARY DATE OF ADMISSION: 11/08/2018 DATE OF DISCHARGE: 11/11/2018. FINAL DIAGNOSES: 1. Right chest wall pain musculoskeletal from recent fall from blunt injury. 2. Right hilar mass for bronchoscopy per Dr. Peters as an outpatient. 3. Chronic kidney disease stage 2 from nephrosclerosis. 4. Gastroesophageal reflux disease. 5. Hearing disorder. 6. Essential hypertension. 7. Hyperlipidemia. 8. Hypothyroid. 9. Anxiety, depression not otherwise specified. HOSPITAL COURSE: This patient presented with tender right chest wall, felt to be from blunt injury that patient had fallen. It actually felt much improved by the time of discharge. Patient is tolerating a diet. The patient has a right lung mass. The patient was seen by Dr. Alcazar and Dr. Boss from Oncology. Outpatient navigational bronchoscopy is being coordinated by Dr. Alcazar's team. Otherwise patient doing well, sitting up, comfortable. PHYSICAL EXAMINATION: Temperature 97.6, pulse 88, respiration 16, blood pressure 162/73, pulse ox 97% on room air. Lungs slightly decreased breath sounds. The patient is answering questions. CONSULTATION: Dr. Boss from Oncology. Dr. Alcazar from Pulmonary. Nurse will be informing the patient's legal guardian as discussed. LABS: Hemoglobin 10.9, BUN 31, creatinine 1.87. HOME GO MEDICATIONS: 1. Zantac 150 mg b.i.d. 2. Aspirin 81 mg a day. 3. Lipitor 10 mg p.o. q.h.s. 4. Arimidex 1 mg p.o. daily. 5. Vitamin D2 09658 units on Tuesday. 6. Prozac 20 mg p.o. daily. 7. Synthroid 125 mcg a day. 8. Norvasc 10 mg a day. 9. Valsartan hydrochlorothiazide 1 tablet p.o. daily. 10.Xanax 0.25 p.o. daily. 11.Ventolin 2 puffs q.6 p.r.n. 12.Iron 325 p.o. daily. 13.Folic acid 1 mg p.o. daily. FOLLOWUP: With Oncology in 1 week. Follow up with Dr. Hernan Cruz from [facility] in 1-[address] Peters's team will be coordinating the navigational bronchoscopy, Dr. Live in 1 week. Patient to use heating pad and Tylenol for pain. Outpatient bronchoscopy is being arranged by Pulmonary for next Tuesday. MMODL / IJN: [id number] /
[2018-11-12] MEDS ORDERED: ERGOCALCIFEROL 50,000 UNIT CAP PO SCH (12:00)
== END 2018-11-11 19:19 | disposition home or self-care (01) | DRG 313 ==
LOC: EC 12:49 → 3NMEDONC 18:10
PROVIDERS: ADMIT Hospitalist; ATTEND Hospitalist
DX: R07.89 Other chest pain (principal); C79.51 Secondary malignant neoplasm of bone; W19.XXXA Unspecified fall, initial encounter; C50.912 Malignant neoplasm of unspecified site of left female breast; C50.911 Malignant neoplasm of unspecified site of right female breast; E03.9 Hypothyroidism, unspecified; E78.5 Hyperlipidemia, unspecified; F03.90 Unspecified dementia, unspecified severity, without behavioral disturbance, psychotic disturbance, mood disturbance, and anxiety; F32.9 Major depressive disorder, single episode, unspecified; F41.9 Anxiety disorder, unspecified; H91.90 Unspecified hearing loss, unspecified ear; I12.9 Hypertensive chronic kidney disease with stage 1 through stage 4 chronic kidney disease, or unspecified chronic kidney disease; K21.9 Gastro-esophageal reflux disease without esophagitis; N18.2 Chronic kidney disease, stage 2 (mild); J45.20 Mild intermittent asthma, uncomplicated; Z87.891 Personal history of nicotine dependence; Z79.82 Long term (current) use of aspirin; Z79.890 Hormone replacement therapy; Z82.49 Family history of ischemic heart disease and other diseases of the circulatory system; Z83.3 Family history of diabetes mellitus; Z86.73 Personal history of transient ischemic attack (TIA), and cerebral infarction without residual deficits; Z90.13 Acquired absence of bilateral breasts and nipples; Z90.710 Acquired absence of both cervix and uterus; Z82.3 Family history of stroke; K59.09 Other constipation; M19.90 Unspecified osteoarthritis, unspecified site; R91.8 Other nonspecific abnormal finding of lung field; Z79.84 Long term (current) use of oral hypoglycemic drugs; Z79.899 Other long term (current) drug therapy
CPT/HCPCS: 36415; 80053; 81001; 82150; 83690; 83735; 85025; 87040; 87086; 93005; 94760; 96361; 96374; 96375; 99285

== ENCOUNTER → 2018-11-17 | Day surgery (SDC) | payer MEDICARE ==
[2018-11-16 14:35] VITALS: BMI 30.6
[~2018-11-17] MED LIST changes: +ALBUTEROL NEB (CONC) 2.5 MG/0.5 ML INHALATION ONE; +DEXAMETHASONE SOD PHOSPHATE 10 MG/ML 1 ML VIAL IV ONE; +HYDROcodone/APAP 5-325MG 1 EACH TAB PO ONE; +HYDROmorphone 0.5 MG/0.5 ML SYRINGE IVP PRN; +LACTATED RINGERS 1,000 ML IV ONE; +LIDOCAINE 1% 20 ML VIAL (10MG/ML) FOR IV START INTRADERMA ONE; +LIDOCAINE 1% INJ 10MG/ML (20 ML MDV) ONE; +LIDOCAINE 2% (PF) 20 MG/ML 10 ML AMP INHALATION ONE; +LIDOCAINE VISCOUS 300 MG/15 ML CUP MUCOUS MEM ONE; +MIDAZOLAM 2 MG/2 ML VIAL IV PRN; +ONDANSETRON 4 MG/2 ML VIAL IVP ONE; +PROPOFOL 10 MG/ML 20 ML VIAL IV ONE; +ROCURONIUM BROMIDE 10 MG/ML 10 ML VIAL IV ONE; +SODIUM CHLORIDE 0.9% 1,000 ML IV SCH; +SUCCINYLCHOLINE CHLORIDE 100 MG/5 ML SYR IV ONE; +ePHEDrine SULFATE/0.9% NACL/PF 50 MG/5 ML SYRINGE IV ONE; +fentaNYL (PF) 50 MCG/ML 2 ML AMP ONE
--- NOTE | 2018-11-17 12:23 | CT ---
EXAMINATION TYPE: CT Chest pérez Richardson Protocol DATE OF EXAM: 11/17/2018 COMPARISON: CT chest October 20, 2018. HISTORY: Bronchial navigation. CT DLP: 524 mGycm Automated exposure control for dose reduction was used. FINDINGS: Exam is performed for bronchoscopy planning and not for diagnostic purposes. There is redemonstration of anterior right infrahilar mass on series 6 image 34 likely targeted area. There is redemonstratio n of enlarged right tracheobronchial lymph node image 22 series 10. There is stable tiny right pleura l effusion. Sclerotic osseous metastatic lesions involving T6 and T8 vertebra as well as additional l esions in the upper thoracic spine are all redemonstrated. IMPRESSION: ABOVE.
[2018-11-17 15:09] VITALS: TEMP 97.4
[2018-11-17 15:16] VITALS: RESP 16
--- NOTE | 2018-11-17 15:53 | XR ---
EXAMINATION TYPE: XR chest 1V portable DATE OF EXAM: 11/17/2018 COMPARISON: Prior chest x-ray and CT 10/20/2017 HISTORY: Status post bronchoscopy TECHNIQUE: Single frontal view of the chest is obtained. FINDINGS: There is no evident pneumothorax or pleural effusion. Heart appears stable, patient rotate d toward the right. Patchy density present at the lung bases. Hemidiaphragms are obscured. Right roya r mass not as well seen as on CT. IMPRESSION: No evident complication status post bronchoscopy.
[2018-11-17 15:58] VITALS: BP 138/77; PULSE 73
--- NOTE | 2018-11-17 18:49 | P.PCN ---
Date of Procedure: 11/17/18 Preoperative Diagnosis: Right hilar adenopathy, right paratracheal adenopathy Postoperative Diagnosis: Same Procedure(s) Performed: Navigational bronchoscopy, transbronchial needle aspirate of the right hilar and paratracheal lymph node Anesthesia: MAC Surgeon: Melissa Peters Estimated Blood Loss (ml): 0 Pathology: other Condition: stable Disposition: same day Operative Findings: This procedure was done and operating room. This procedure was done under navigational guidance using the [employer] system. The patient was taken to the CAT scan department where she underwent a CAT scan using the [employer] protocol. The Vpads were applied to the chest. Following that the patient was brought into the operating room and the patient was intubated and placed on a mechanical ventilator by anesthesia. The CAT scan was uploaded into our system and the right hilar and paratracheal l ymph nodes were mapped. The information was uploaded today ESBL and then transferred into the [employer] [place]. The patient was already intubated. The flexible bronchoscope was inserted through the orotracheal tube are anicteric airway inspection was done. Distal trachea, bilateral mainstem bronchi, right upper lobe bronchus, right middle lobe and right lower lobe bronchus and the left upper and left lobe bronchus along with a segments and subsegments were all inspected and there were all within normal limits. Following that, the appropriate calibration was done using 2 different reference points and these were the main josé and the secondary josé the right upper lobe and the bronchus intermedius. The right paratracheal mass and the right hilar mass were easily identified under navigational guidance. Using a 19-gauge cytology and 21-gauge histology needle, transbronchial needle aspirate of the right hilar mass and the right paratracheal lymph node was done and the adequacy of the samples was confirmed by pathology at the bedside. Multiple passes were obtained on both these locations. No bleeding was encountered. The lymph nodes were both biopsied with great accuracy as needed was seen within the lymph node in both instances. The bronchoscope was removed and the patient was extubated and the patient was transferred to recovery in stable condition. No complications.
== END ==
LOC: ORWHC2ENDO 10:56
PROVIDERS: ATTEND Internal Medicine Critical Care Medicine
DX: C78.01 Secondary malignant neoplasm of right lung (principal); I12.9 Hypertensive chronic kidney disease with stage 1 through stage 4 chronic kidney disease, or unspecified chronic kidney disease; N18.2 Chronic kidney disease, stage 2 (mild); Z87.891 Personal history of nicotine dependence; K21.9 Gastro-esophageal reflux disease without esophagitis; E78.5 Hyperlipidemia, unspecified; E03.9 Hypothyroidism, unspecified; F41.9 Anxiety disorder, unspecified; F32.9 Major depressive disorder, single episode, unspecified; J44.9 Chronic obstructive pulmonary disease, unspecified; Z86.73 Personal history of transient ischemic attack (TIA), and cerebral infarction without residual deficits; H91.90 Unspecified hearing loss, unspecified ear; F03.90 Unspecified dementia, unspecified severity, without behavioral disturbance, psychotic disturbance, mood disturbance, and anxiety; Z79.811 Long term (current) use of aromatase inhibitors; Z79.82 Long term (current) use of aspirin; Z79.890 Hormone replacement therapy; Z79.899 Other long term (current) drug therapy
CPT/HCPCS: 88305; 88173; 88342; 88341; 71045; 71250; 31628; 31629; 31627; J1100; J2405; J2001; J3010; J0330; J2704; 31633

== ENCOUNTER 2018-12-19 02:09 | Emergency (ER) | payer MEDICARE, OTHER ==
[2018-12-19] MEDS ORDERED: MORPHINE SULFATE 4 MG/ML SYRINGE IV STA ×2 (02:44→08:35)
--- NOTE | 2018-12-19 03:06 | XR ---
EXAM: XR Chest, 1 View CLINICAL HISTORY: ITS.REASON XR Reason: abdominal pain TECHNIQUE: Frontal view of the chest. COMPARISON: 11/17/18 x-ray IMPRESSION: Cardiomegaly. Bibasilar atelectasis. Possible left pleural effusion.
[2018-12-19 04:57] LABS: Basophils % (A) 0 %; Eosinophils # (A) 0.1 k/uL (0-0.7); Eosinophils % (A) 1 %; HCT 33.4 % (34.0-46.0); HGB 10.7 gm/dL (11.4-16.0); Lymphocytes # (A) 1.2 k/uL (1.0-4.8); Lymphocytes % (A) 8 %; MCH 29.4 pg (25.0-35.0); MCHC 32.1 g/dL (31.0-37.0); MCV 91.6 fL (80.0-100.0); Mean Platelet Volume 6.9; Monocytes # (A) 0.5 k/uL (0-1.0); Monocytes % (A) 4 %; Neutrophils # (A) 11.8 k/uL (1.3-7.7); Neutrophils % (A) 86 %; Platelet Count 304 k/uL (150-450); RBC 3.65 m/uL (3.80-5.40); RDW 13.6 % (11.5-15.5); WBC 13.7 k/uL (3.8-10.6)
[2018-12-19 05:01] LABS: Albumin 4.1 g/dL (3.5-5.0); Calcium 9.9 mg/dL (8.4-10.2); Total Bilirubin 0.3 mg/dL (0.2-1.3); Total Protein 6.9 g/dL (6.3-8.2)
[2018-12-19 06:20] VITALS: RESP 16
--- NOTE | 2018-12-19 09:13 | ED ---
General Adult HPI - General Chief complaint: Abdominal Pain Stated complaint: Pain Management Time Seen by Provider: 12/19/18 02:24 Source: patient, EMS - History of Present Illness Initial comments: This patient is a 73-year-old woman who comes from her extended care facility to have treatment for intractable pains. The patient has a history of metastatic breast cancer. She reportedly is taking [place] 5 mg and this has been inadequate over the course of tonight. The patient has some underlying dementia and is not able to give much additional history on arrival. She is complaining of pains diffusely throughout the body. -: hour(s) Radiation: non-radiation Quality: aching Consistency: constant Improves with: none Worsens with: none Associated Symptoms: denies other symptoms - Related Data Home Medications Medication Instructions Recorded Confirmed Aspirin EC [Ecotrin Low Dose] 81 mg PO DAILY 01/03/17 12/26/18 Atorvastatin [Lipitor] 10 mg PO HS 01/03/17 12/26/18 Levothyroxine Sodium [Synthroid] 112 mcg PO QAM 11/04/17 12/26/18 amLODIPine [Norvasc] 10 mg PO QAM 11/04/17 12/26/18 Valsartan/Hydrochlorothiazide 1 tab PO QAM 01/23/18 12/26/18 [Valsartan-Hctz 320-25 mg Tab] Allopurinol [Zyloprim] 100 mg PO DAILY 11/16/18 12/26/18 Metoclopramide [Reglan] 10 mg PO BID@0700,1800 11/16/18 12/26/18 Calcium Carbonate/Vitamin D3 1 tab PO DAILY 12/19/18 12/26/18 [Calcium 500-Vit D3 600 Tablet] Metoprolol Tartrate [Lopressor] 25 mg PO BID@0700,1800 12/19/18 12/26/18 ALPRAZolam [Xanax] 0.25 mg PO TID PRN 12/26/18 12/26/18 Albuterol Inhaler [Ventolin Hfa 2 puff INHALATION RT-Q6H PRN 12/26/18 12/26/18 Inhaler] Cyanocobalamin (Vitamin B-12) 1,000 mcg PO DAILY 12/26/18 12/26/18 [Vitamin B-12] Ergocalciferol [Vitamin D2] 50,000 unit PO Q7D 12/26/18 12/26/18 FLUoxetine HCL [PROzac] 20 mg PO DAILY 12/26/18 12/26/18 Ferrous Gluconate 324 mg PO DAILY 12/26/18 12/26/18 Folic Acid 1 mg PO DAILY 12/26/18 12/26/18 Ondansetron [Zofran] 4 mg PO Q8HR PRN 12/26/18 12/26/18 Ranitidine HCl 150 mg PO BID 12/26/18 12/26/18 oxyCODONE-APAP 5-325MG [Percocet 1 tab PO Q4HR PRN 12/26/18 12/26/18 5-325 mg] Allergies Allergy/AdvReac Type Severity Reaction Status Date / Time No Known Allergies Allergy Verified 12/26/18 20:21 Review of Systems ROS Statement: Those systems with pertinent positive or pertinent negative responses have been documented in the HPI. ROS Other: All systems not noted in ROS Statement are negative. Constitutional: Denies: fever, chills Respiratory: Denies: cough, dyspnea Cardiovascular: Denies: chest pain, palpitations Gastrointestinal: Denies: abdominal pain, vomiting, diarrhea Musculoskeletal: Reports: as per HPI, arthralgia, myalgia Skin: Denies: rash Neurological: Denies: headache, weakness, numbness Past Medical History Past Medical History: Asthma, Cancer, CVA/TIA, Eye Disorder, GERD/Reflux, Hearing Disorder / Deafness, Hyperlipidemia, Hypertension, Memory Impairment, Musculoskeletal Disorder, Syncope, Thyroid Disorder Additional Past Medical History / Comment(s): Hx [place]ASIA Breast Cancer, no radiation or chemotherapy; EDEMA LT ARM. CVA - C/O NUMBNESS LT SIDE, PAIN IN LT ARM, LT HIP. NOT TO USE LT ARM D/T PREV SURGERY.DDD; Constipation History of Any Multi-Drug Resistant Organisms: None Reported Past Surgical History: Hysterectomy, Joint Replacement Additional Past Surgical History / Comment(s): [place]ASIA knee replacment; Double mastectomy 03/13/17 Past Anesthesia/Blood Transfusion Reactions: No Reported Reaction Past Psychological History: Anxiety, Depression Smoking Status: Former smoker - Past Family History Father Family Medical History: Cancer, CVA/TIA, Diabetes Mellitus, Myocardial Infarction ([place]) Mother Family Medical History: Myocardial Infarction ([place]) General Exam General appearance: alert, in no apparent distress Head exam: Present: atraumatic, normocephalic Eye exam: Present: normal appearance. Absent: scleral icterus, conjunctival injection ENT exam: Present: mucous membranes dry Neck exam: Present: normal inspection, full ROM Respiratory exam: Present: rhonchi. Absent: respiratory distress, wheezes, rales, stridor, accessory muscle use, decreased breath sounds Cardiovascular Exam: Present: regular rate, normal rhythm, normal heart sounds. Absent: systolic murmur, diastolic murmur, rubs, gallop GI/Abdominal exam: Present: soft. Absent: distended, tenderness, guarding, rebound, rigid Extremities exam: Present: normal inspection, normal capillary refill, pedal edema. Absent: calf tenderness Neurological exam: Present: alert, CN II-XII intact. Absent: oriented X3 (Patient is only oriented to person and place), motor sensory deficit Skin exam: Present: warm, dry, intact, normal color. Absent: rash Course Vital Signs 12/19/18 12/19/18 12/19/18 02:13 06:00 09:53 Temperature 98.0 F 98.4 F 97.9 F Pulse Rate 67 63 66 Respiratory 19 16 16 Rate Blood Pressure 126/60 105/50 133/64 O2 Sat by Pulse 92 L 93 L 95 Oximetry Medical Decision Making - Lab Data Result diagrams: 12/19/18 04:26 12/19/18 04:26 Lab Results 12/19/18 12/19/18 Range/Units 04:26 04:26 WBC 13.7 H (3.8-10.6) k/uL RBC 3.65 L (3.80-5.40) m/uL Hgb 10.7 L (11.4-16.0) gm/dL Hct 33.4 L (34.0-46.0) % MCV 91.6 (80.0-100.0) fL MCH 29.4 (25.0-35.0) pg MCHC 32.1 (31.0-37.0) g/dL RDW 13.6 (11.5-15.5) % Plt Count 304 (150-450) k/uL Neutrophils % 86 % Lymphocytes % 8 % Monocytes % 4 % Eosinophils % 1 % Basophils % 0 % Neutrophils # 11.8 H (1.3-7.7) k/uL Lymphocytes # 1.2 (1.0-4.8) k/uL Monocytes # 0.5 (0-1.0) k/uL Eosinophils # 0.1 (0-0.7) k/uL Basophils # 0.0 (0-0.2) k/uL Sodium 140 (137-145) mmol/L Potassium 5.0 (3.5-5.1) mmol/L Chloride 107 (98-107) mmol/L Carbon Dioxide 22 (22-30) mmol/L Anion Gap 11 mmol/L BUN 34 H (7-17) mg/dL Creatinine 1.88 H (0.52-1.04) mg/dL Est GFR (CKD-EPI)AfAm 30 (>60 ml/min/1.73 sqM) Est GFR (CKD-EPI)NonAf 26 (>60 ml/min/1.73 sqM) Glucose 151 H (74-99) mg/dL Calcium 9.9 (8.4-10.2) mg/dL Total Bilirubin 0.3 (0.2-1.3) mg/dL AST 31 (14-36) U/L ALT 20 (9-52) U/L Alkaline Phosphatase 150 H (38-126) U/L Total Protein 6.9 (6.3-8.2) g/dL Albumin 4.1 (3.5-5.0) g/dL Amylase 168 H (30-110) U/L Lipase 538 H (23-300) U/L Disposition Clinical Impression: Intractable pain Disposition: HOME SELF-CARE Condition: Fair Instructions (If sedation given, give patient instructions): Arthralgia (ED) Is patient prescribed a controlled substance at d/c from ED?: Yes When asked, does pt state using other controlled substances?: Yes If prescribed controlled substance>3 days was MAPS reviewed?: Yes If opioid is for acute pain is fill amount 7 days or less?: Yes Referrals: Hernan Cruz MD [Primary Care Provider] - 1-2 days
[2018-12-19 09:54] VITALS: BP 133/64; PULSE 66; TEMP 97.9
[2018-12-19] MEDS ORDERED: ONDANSETRON 4 MG TAB PO STA (10:00)
--- NOTE | 2018-12-20 04:24 | CDI ---
Dear Mason Riddle MD : Please do addendum Physical Examination. Thank you, Erika Marquez, Retail Loan Originator. If you have any questions, please contact Sawmill Worker at [phone]. [facility]
== END 2018-12-19 10:15 | disposition home or self-care (01) ==
LOC: EC 02:09
DX: R52 Pain, unspecified (principal); F03.90 Unspecified dementia, unspecified severity, without behavioral disturbance, psychotic disturbance, mood disturbance, and anxiety; J45.909 Unspecified asthma, uncomplicated; K21.9 Gastro-esophageal reflux disease without esophagitis; I10 Essential (primary) hypertension; E78.5 Hyperlipidemia, unspecified; E07.9 Disorder of thyroid, unspecified; F41.9 Anxiety disorder, unspecified; F32.9 Major depressive disorder, single episode, unspecified; Z79.82 Long term (current) use of aspirin; Z79.890 Hormone replacement therapy; Z79.899 Other long term (current) drug therapy; Z87.891 Personal history of nicotine dependence; Z85.3 Personal history of malignant neoplasm of breast; Z86.73 Personal history of transient ischemic attack (TIA), and cerebral infarction without residual deficits; Z90.13 Acquired absence of bilateral breasts and nipples; Z96.653 Presence of artificial knee joint, bilateral
CPT/HCPCS: 99284; 96374; 96376; 36415; 80053; 82150; 83690; 85025; 71045; J2270

== ENCOUNTER 2018-12-26 19:42 | Emergency (ER) | payer MEDICARE, OTHER ==
[2018-12-26 19:50] VITALS: RESP 18
--- NOTE | 2018-12-26 21:27 | CT ---
EXAMINATION TYPE: CT brain cspine wo con DATE OF EXAM: 12/26/2018 COMPARISON: 04/21/2017 HISTORY: Pain, fall CT DLP: 1240 mGycm Automated exposure control for dose reduction was used. TECHNIQUE: CT scan of the head and cervical spine are performed without contrast. FINDINGS: There is no skull fracture. There is no mass or mass effect. There is a left paramidline 10 x 10 x 5 mm hyperdensity along the interhemispheric falx, medial to th e left parietal lobe, and just superior to the posterior body of the corpus callosum. This finding (c oronal image 36 of 68) is new since the prior study of 2017. Though these is a limited differential d iagnosis for this finding, including benign and aggressive neoplasm, in the right clinical setting it could represent small subdural hematoma without mass effect. The ventricles and sulci are within normal limits in size. The globes are intact. The visualized sin uses, middle ear cavities, and mastoid sinus air cells are clear. Cervical spine is visualized in its entirety from C1 through upper thoracic levels and demonstrates s atisfactory alignment without evidence of acute fracture or dislocation. Prevertebral soft tissue ap pears within normal limits. The C1-C2 articulation is unremarkable. Results called to the ordering clinician just now, in order to ensure intact communications. IMPRESSION: 1) Left parafalcine 1 x 1 x 0.5 cm hyperdensity as discussed; MRI characterization without and with IV contrast is advised. 2) There is no acute fracture or dislocation evident in the cervical spine.
[2018-12-26] MEDS ORDERED: HYDROcodone/APAP 5-325MG 1 EACH TAB PO STA (22:01)
--- NOTE | 2018-12-26 23:07 | ED ---
Fall HPI - General Source: patient, EMS Mode of arrival: EMS <Mason Riddle - Last Filed: 12/26/18 23:07> <Estelle Grimes - Last Filed: 12/26/18 23:37> - General Chief Complaint: Fall Stated Complaint: fall Time Seen by Provider: 12/26/18 20:03 - History of Present Illness Initial Comments: Patient is a 73-year-old female presents to emergency department via EMS after falling. Patient arrived in a cervical collar. Patient states she went to sit on the toilet and missed and fell down. According to EMS she fell out of a chair. There is nobody else with the patient at the time of examination. Patient is complaining about a headache and neck pain. Patient is currently being treated for breast cancer with metastases. Patient has a legal guardian of [facility]. patient does not have any other complaints at this time. (Estelle Grimes) - Related Data Home Medications Medication Instructions Recorded Confirmed Aspirin EC [Ecotrin Low Dose] 81 mg PO DAILY 01/03/17 12/26/18 Atorvastatin [Lipitor] 10 mg PO HS 01/03/17 12/26/18 Levothyroxine Sodium [Synthroid] 112 mcg PO QAM 11/04/17 12/26/18 amLODIPine [Norvasc] 10 mg PO QAM 11/04/17 12/26/18 Valsartan/Hydrochlorothiazide 1 tab PO QAM 01/23/18 12/26/18 [Valsartan-Hctz 320-25 mg Tab] Allopurinol [Zyloprim] 100 mg PO DAILY 11/16/18 12/26/18 Metoclopramide [Reglan] 10 mg PO BID@0700,1800 11/16/18 12/26/18 Calcium Carbonate/Vitamin D3 1 tab PO DAILY 12/19/18 12/26/18 [Calcium 500-Vit D3 600 Tablet] Metoprolol Tartrate [Lopressor] 25 mg PO BID@0700,1800 12/19/18 12/26/18 ALPRAZolam [Xanax] 0.25 mg PO TID PRN 12/26/18 12/26/18 Albuterol Inhaler [Ventolin Hfa 2 puff INHALATION RT-Q6H PRN 12/26/18 12/26/18 Inhaler] Cyanocobalamin (Vitamin B-12) 1,000 mcg PO DAILY 12/26/18 12/26/18 [Vitamin B-12] Ergocalciferol [Vitamin D2] 50,000 unit PO Q7D 12/26/18 12/26/18 FLUoxetine HCL [PROzac] 20 mg PO DAILY 12/26/18 12/26/18 Ferrous Gluconate 324 mg PO DAILY 12/26/18 12/26/18 Folic Acid 1 mg PO DAILY 12/26/18 12/26/18 Ondansetron [Zofran] 4 mg PO Q8HR PRN 12/26/18 12/26/18 Ranitidine HCl 150 mg PO BID 12/26/18 12/26/18 oxyCODONE-APAP 5-325MG [Percocet 1 tab PO Q4HR PRN 12/26/18 12/26/18 5-325 mg] Allergies Allergy/AdvReac Type Severity Reaction Status Date / Time No Known Allergies Allergy Verified 12/26/18 20:21 Review of Systems ROS Other: All systems not noted in ROS Statement are negative. <Mason Riddle - Last Filed: 12/26/18 23:07> ROS Other: All systems not noted in ROS Statement are negative. <Estelle Grimes - Last Filed: 12/26/18 23:37> ROS Statement: Those systems with pertinent positive or pertinent negative responses have been documented in the HPI. Past Medical History Past Medical History: Asthma, Cancer, CVA/TIA, Eye Disorder, GERD/Reflux, Hearing Disorder / Deafness, Hyperlipidemia, Hypertension, Memory Impairment, Musculoskeletal Disorder, Syncope, Thyroid Disorder Additional Past Medical History / Comment(s): Hx [place] Breast Cancer, no radiation or chemotherapy; EDEMA LT ARM. CVA - C/O NUMBNESS LT SIDE, PAIN IN LT ARM, LT HIP. NOT TO USE LT ARM D/T PREV SURGERY.DDD; Constipation History of Any Multi-Drug Resistant Organisms: None Reported Past Surgical History: Hysterectomy, Joint Replacement Additional Past Surgical History / Comment(s): [place] knee replacment; Double mastectomy 03/13/17 Past Anesthesia/Blood Transfusion Reactions: No Reported Reaction Past Psychological History: Anxiety, Depression Smoking Status: Former smoker - Past Family History Father Family Medical History: Cancer, CVA/TIA, Diabetes Mellitus, Myocardial Infarction ([place]) Mother Family Medical History: Myocardial Infarction ([place]) <Mason Riddle - Last Filed: 12/26/18 23:07> General Exam Limitations: physical limitation <Mason Riddle - Last Filed: 12/26/18 23:07> <Estelle Grimes - Last Filed: 12/26/18 23:37> - General Exam Comments Initial Comments: GENERAL: Patient appears fatigued, in no acute distress. HEAD: Atraumatic, normocephalic. EYES: Pupils equal round and reactive to light, extraocular movements intact, sclera anicteric, conjunctiva are normal. ENT: TMs normal, nares patent, oropharynx clear without exudates. Moist mucous membranes. NECK: Normal range of motion but painful. supple without lymphadenopathy or JVD. LUNGS: Breath sounds clear to auscultation bilaterally and equal. No wheezes rales or rhonchi. HEART: Regular rate and rhythm without murmurs, rubs or gallops. ABDOMEN: Soft, nontender, normoactive bowel sounds. No guarding, no rebound. No masses appreciated. : Deferred EXTREMITIES: Normal range of motion, no pitting or edema. No clubbing or cyanosis. NEUROLOGICAL: Cranial nerves II through XII grossly intact. Normal speech, normal gait. PSYCH: Normal mood, normal affect. SKIN: Warm, Dry, normal turgor, no rashes or lesions noted. (Estelle Grimes) Course <Mason Riddle - Last Filed: 12/26/18 23:07> Vital Signs 12/26/18 12/26/18 19:44 21:19 Temperature 97.9 F Pulse Rate 77 68 Respiratory 18 18 Rate Blood Pressure 144/65 115/64 O2 Sat by Pulse 95 94 L Oximetry - Reevaluation(s) Reevaluation #1: 12/26/18 23:06 Given the patient is full code, and after discussion with the patient's appointed guardian, patient will be transferred to [facility] for neurosurgical evaluation/further evaluation. Case D/W Dr. Sethi. 12/26/18 23:07 (Mason Riddle) Medical Decision Making <JanessaMason - Last Filed: 12/26/18 23:07> <Estelle Grimes - Last Filed: 12/26/18 23:37> - Medical Decision Making I saw this patient in conjunction with the physician financial sales assistant. I performed independent history and physical exam. Agree with case management. (Mason Riddle) Patient is a 73-year-old female arrives via EMS after falling at her assisted living. Patient arrived in cervical collar. Patient states she went to sit on a toilet and missed. There was nobody else with the patient to get a clear story. Patient is complaining of headache and neck pain. CT brain and C-spine showed a ~1cm/1cm hyperdensity on the brain. According to the radiologist it could be a metastases or could represent a subdural hematoma and recommended an MRI with and without IV contrast. No acute findings of the neck. We spoke with Gabi Burrell who is her legal guardian about options of discharging patient versus transferring to a facility with neurosurgery. She wanted her to be transferred. Patient will be transferred to [facility] and was accepted by Dr. Vigil. Case was discussed with Dr. Riddle. (Estelle Grimes) Disposition <Mason Riddle - Last Filed: 12/26/18 23:07> Is patient prescribed a controlled substance at d/c from ED?: No - Out of Hospital Transfer - Req. Specs Out of Hospital Transfer - Requested Specifics: Other Emergency Center ([facility] accepted by Dr. Vigil) <Estelle Grimes - Last Filed: 12/26/18 23:37> Clinical Impression: Headache, History of breast cancer Disposition: OTHER INSTITUTION NOT DEFINED Condition: Stable Instructions (If sedation given, give patient instructions): Fall Prevention for Older Adults (ED) Additional Instructions: Please return to the Emergency Department if symptoms worsen or any other concerns. Referrals: Hernan Cruz MD [Primary Care Provider] - 1-2 days
[2018-12-26 23:42] VITALS: BP 124/70; PULSE 70; TEMP 98
== END 2018-12-26 23:52 | disposition other institution (70) ==
LOC: EC 19:42
DX: R51 Headache (principal); M54.2 Cervicalgia; G93.89 Other specified disorders of brain; J45.909 Unspecified asthma, uncomplicated; K21.9 Gastro-esophageal reflux disease without esophagitis; H91.90 Unspecified hearing loss, unspecified ear; E78.5 Hyperlipidemia, unspecified; I10 Essential (primary) hypertension; E07.9 Disorder of thyroid, unspecified; F32.9 Major depressive disorder, single episode, unspecified; F41.9 Anxiety disorder, unspecified; Z86.73 Personal history of transient ischemic attack (TIA), and cerebral infarction without residual deficits; Z85.3 Personal history of malignant neoplasm of breast; Z87.891 Personal history of nicotine dependence; Z79.82 Long term (current) use of aspirin; Z79.890 Hormone replacement therapy; Z79.899 Other long term (current) drug therapy; Z96.653 Presence of artificial knee joint, bilateral; W07.XXXA Fall from chair, initial encounter; Y92.009 Unspecified place in unspecified non-institutional (private) residence as the place of occurrence of the external cause
CPT/HCPCS: 70450; 72125; 99285

== ENCOUNTER 2019-02-18 11:39 | Emergency (ER) | payer MEDICARE, OTHER ==
[2019-02-18] MEDS ORDERED: SODIUM CHLORIDE 0.9% 1,000 ML IV STA ×2 (11:57)
--- NOTE | 2019-02-18 12:00 | ED ---
Dizziness HPI - General Chief Complaint: Dizziness Stated Complaint: panic attack Time Seen by Provider: 02/18/19 11:44 Source: RN notes reviewed, old records reviewed - History of Present Illness Initial Comments: This Patient is 73-year-old female who resides at an extended care facility presents emergency department today with flat EMS described as a panic attack. She reports that she was sitting at congregational, and deep breathing, complaining of dizziness and throat tightness. Patient reportedly has had some chest discomfort. Patient has a history of breast cancer, currently on chemotherapy. Patient states that she also is having some lower back pain as stated the back pain is worse over the past week worse with ambulation. Patient has history of dementia, relatively poor historian. She denies any fall or trauma. - Related Data Home Medications Medication Instructions Recorded Confirmed Aspirin EC [Ecotrin Low Dose] 81 mg PO DAILY 01/03/17 12/26/18 Atorvastatin [Lipitor] 10 mg PO HS 01/03/17 12/26/18 Levothyroxine Sodium [Synthroid] 112 mcg PO QAM 11/04/17 12/26/18 amLODIPine [Norvasc] 10 mg PO QAM 11/04/17 12/26/18 Valsartan/Hydrochlorothiazide 1 tab PO QAM 01/23/18 12/26/18 [Valsartan-Hctz 320-25 mg Tab] Allopurinol [Zyloprim] 100 mg PO DAILY 11/16/18 12/26/18 Metoclopramide [Reglan] 10 mg PO BID@0700,1800 11/16/18 12/26/18 Calcium Carbonate/Vitamin D3 1 tab PO DAILY 12/19/18 12/26/18 [Calcium 500-Vit D3 600 Tablet] Metoprolol Tartrate [Lopressor] 25 mg PO BID@0700,1800 12/19/18 12/26/18 ALPRAZolam [Xanax] 0.25 mg PO TID PRN 12/26/18 12/26/18 Albuterol Inhaler [Ventolin Hfa 2 puff INHALATION RT-Q6H PRN 12/26/18 12/26/18 Inhaler] Cyanocobalamin (Vitamin B-12) 1,000 mcg PO DAILY 12/26/18 12/26/18 [Vitamin B-12] Ergocalciferol [Vitamin D2] 50,000 unit PO Q7D 12/26/18 12/26/18 FLUoxetine HCL [PROzac] 20 mg PO DAILY 12/26/18 12/26/18 Ferrous Gluconate 324 mg PO DAILY 12/26/18 12/26/18 Folic Acid 1 mg PO DAILY 12/26/18 12/26/18 Ondansetron [Zofran] 4 mg PO Q8HR PRN 12/26/18 12/26/18 Ranitidine HCl 150 mg PO BID 12/26/18 12/26/18 oxyCODONE-APAP 5-325MG [Percocet 1 tab PO Q4HR PRN 12/26/18 12/26/18 5-325 mg] Allergies Allergy/AdvReac Type Severity Reaction Status Date / Time No Known Allergies Allergy Verified 12/26/18 20:21 Review of Systems ROS Statement: Those systems with pertinent positive or pertinent negative responses have been documented in the HPI. ROS Other: All systems not noted in ROS Statement are negative. Past Medical History Past Medical History: Asthma, Cancer, CVA/TIA, Eye Disorder, GERD/Reflux, Hearing Disorder / Deafness, Hyperlipidemia, Hypertension, Memory Impairment, Musculoskeletal Disorder, Syncope, Thyroid Disorder Additional Past Medical History / Comment(s): Hx [facility]ASIA Breast Cancer, no radiation or chemotherapy; EDEMA LT ARM. CVA - C/O NUMBNESS LT SIDE, PAIN IN LT ARM, LT HIP. NOT TO USE LT ARM D/T PREV SURGERY.DDD; Constipation History of Any Multi-Drug Resistant Organisms: None Reported Past Surgical History: Hysterectomy, Joint Replacement Additional Past Surgical History / Comment(s): [facility]ASIA knee replacment; Double mastectomy 03/13/17 Past Anesthesia/Blood Transfusion Reactions: No Reported Reaction Past Psychological History: Anxiety, Depression Smoking Status: Former smoker - Past Family History Father Family Medical History: Cancer, CVA/TIA, Diabetes Mellitus, Myocardial Infarction ([place]) Mother Family Medical History: Myocardial Infarction ([place]) General Exam - General Exam Comments Initial Comments: This is a 73-year-old female. Alert and oriented times person and place. Unaware of time. Patient appears pale. General appearance: alert, in no apparent distress Head exam: Present: atraumatic, normocephalic, normal inspection Eye exam: Present: normal appearance ENT exam: Present: normal exam, mucous membranes moist Neck exam: Present: normal inspection. Absent: tenderness, meningismus, lymphadenopathy Respiratory exam: Present: normal lung sounds bilaterally. Absent: respiratory distress, wheezes, rales, rhonchi, stridor Cardiovascular Exam: Present: regular rate, normal rhythm, normal heart sounds. Absent: systolic murmur, diastolic murmur, rubs, gallop, clicks GI/Abdominal exam: Present: soft Extremities exam: Present: normal inspection, full ROM, normal capillary refill, other (Patient has tenderness over the lumbar spine.). Absent: tenderness, pedal edema, joint swelling, calf tenderness Back exam: Present: normal inspection Neurological exam: Present: alert, oriented X3, CN II-XII intact Psychiatric exam: Present: normal affect, normal mood Skin exam: Present: warm, dry, intact, normal color. Absent: rash Course Vital Signs 02/18/19 11:40 Temperature 98.9 F Pulse Rate 55 L Respiratory 18 Rate Blood Pressure 118/51 O2 Sat by Pulse 98 Oximetry Medical Decision Making - Medical Decision Making 73-year-old female presents via EMS for concern for panic attack. Patient arrives here states she was somewhat better but continued Dizziness, throat tightness and discomfort in her chest. EKG and lab work was reviewed to be normal. She also complains of worsening back pain for the past week. She hasn't had known history of breast cancer which she is undergoing chemotherapy. This can turn for metastases she does have evidence of compression deformity at T12 the past. Her lumbar spine x-ray was read to be negative for any acute process. Patient was given 1 dose of pain meds in the ER. Patient's caregiver was here informed patient's caregiver of all stable results and caregiver agrees that when he was driving was likely Patient was undergoing a panic attack. Patient will be discharged at this time in stable condition back to her extended care facility with their caregiver. Ambulating without difficulty into the vehicle and is be discharged home. - Lab Data Result diagrams: 02/18/19 12:46 02/18/19 12:46 Lab Results 02/18/19 02/18/19 02/18/19 Range/Units 12:46 12:46 12:46 WBC 8.2 (3.8-10.6) k/uL RBC 3.44 L (3.80-5.40) m/uL Hgb 10.3 L (11.4-16.0) gm/dL Hct 31.8 L (34.0-46.0) % MCV 92.4 (80.0-100.0) fL MCH 29.9 (25.0-35.0) pg MCHC 32.4 (31.0-37.0) g/dL RDW 15.0 (11.5-15.5) % Plt Count 322 (150-450) k/uL Neutrophils % 75 % Lymphocytes % 17 % Monocytes % 2 % Eosinophils % 4 % Basophils % 0 % Neutrophils # 6.1 (1.3-7.7) k/uL Lymphocytes # 1.4 (1.0-4.8) k/uL Monocytes # 0.2 (0-1.0) k/uL Eosinophils # 0.3 (0-0.7) k/uL Basophils # 0.0 (0-0.2) k/uL PT (9.0-12.0) sec INR (<1.2) APTT (22.0-30.0) sec Sodium 141 (137-145) mmol/L Potassium 5.0 (3.5-5.1) mmol/L Chloride 110 H (98-107) mmol/L Carbon Dioxide 18 L (22-30) mmol/L Anion Gap 13 mmol/L BUN 37 H (7-17) mg/dL Creatinine 2.12 H (0.52-1.04) mg/dL Est GFR (CKD-EPI)AfAm 26 (>60 ml/min/1.73 sqM) Est GFR (CKD-EPI)NonAf 23 (>60 ml/min/1.73 sqM) Glucose 120 H (74-99) mg/dL Calcium 8.3 L (8.4-10.2) mg/dL Magnesium 2.3 (1.6-2.3) mg/dL Total Bilirubin 0.2 (0.2-1.3) mg/dL AST 18 (14-36) U/L ALT 12 (9-52) U/L Alkaline Phosphatase 149 H (38-126) U/L Troponin I (0.000-0.034) ng/mL NT-Pro-B Natriuret Pep pg/mL Total Protein 6.9 (6.3-8.2) g/dL Albumin 3.9 (3.5-5.0) g/dL Amylase 63 (30-110) U/L Lipase 102 (23-300) U/L Blood Type O Negative Blood Type Confirm Blood Type Recheck CABO Indicated Antibody Screen NEGATIVE Spec Expiration Date 02/21/2019234502/18/19 02/18/19 02/18/19 Range/Units 12:46 12:46 12:46 WBC (3.8-10.6) k/uL RBC (3.80-5.40) m/uL Hgb (11.4-16.0) gm/dL Hct (34.0-46.0) % MCV (80.0-100.0) fL MCH (25.0-35.0) pg MCHC (31.0-37.0) g/dL RDW (11.5-15.5) % Plt Count (150-450) k/uL Neutrophils % % Lymphocytes % % Monocytes % % Eosinophils % % Basophils % % Neutrophils # (1.3-7.7) k/uL Lymphocytes # (1.0-4.8) k/uL Monocytes # (0-1.0) k/uL Eosinophils # (0-0.7) k/uL Basophils # (0-0.2) k/uL PT 9.5 (9.0-12.0) sec INR 0.9 (<1.2) APTT 24.5 (22.0-30.0) sec Sodium (137-145) mmol/L Potassium (3.5-5.1) mmol/L Chloride (98-107) mmol/L Carbon Dioxide (22-30) mmol/L Anion Gap mmol/L BUN (7-17) mg/dL Creatinine (0.52-1.04) mg/dL Est GFR (CKD-EPI)AfAm (>60 ml/min/1.73 sqM) Est GFR (CKD-EPI)NonAf (>60 ml/min/1.73 sqM) Glucose (74-99) mg/dL Calcium (8.4-10.2) mg/dL Magnesium (1.6-2.3) mg/dL Total Bilirubin (0.2-1.3) mg/dL AST (14-36) U/L ALT (9-52) U/L Alkaline Phosphatase (38-126) U/L Troponin I <0.012 (0.000-0.034) ng/mL NT-Pro-B Natriuret Pep 380 pg/mL Total Protein (6.3-8.2) g/dL Albumin (3.5-5.0) g/dL Amylase (30-110) U/L Lipase (23-300) U/L Blood Type Blood Type Confirm Blood Type Recheck Antibody Screen Spec Expiration Date 02/18/19 Range/Units 14:00 WBC (3.8-10.6) k/uL RBC (3.80-5.40) m/uL Hgb (11.4-16.0) gm/dL Hct (34.0-46.0) % MCV (80.0-100.0) fL MCH (25.0-35.0) pg MCHC (31.0-37.0) g/dL RDW (11.5-15.5) % Plt Count (150-450) k/uL Neutrophils % % Lymphocytes % % Monocytes % % Eosinophils % % Basophils % % Neutrophils # (1.3-7.7) k/uL Lymphocytes # (1.0-4.8) k/uL Monocytes # (0-1.0) k/uL Eosinophils # (0-0.7) k/uL Basophils # (0-0.2) k/uL PT (9.0-12.0) sec INR (<1.2) APTT (22.0-30.0) sec Sodium (137-145) mmol/L Potassium (3.5-5.1) mmol/L Chloride (98-107) mmol/L Carbon Dioxide (22-30) mmol/L Anion Gap mmol/L BUN (7-17) mg/dL Creatinine (0.52-1.04) mg/dL Est GFR (CKD-EPI)AfAm (>60 ml/min/1.73 sqM) Est GFR (CKD-EPI)NonAf (>60 ml/min/1.73 sqM) Glucose (74-99) mg/dL Calcium (8.4-10.2) mg/dL Magnesium (1.6-2.3) mg/dL Total Bilirubin (0.2-1.3) mg/dL AST (14-36) U/L ALT (9-52) U/L Alkaline Phosphatase (38-126) U/L Troponin I (0.000-0.034) ng/mL NT-Pro-B Natriuret Pep pg/mL Total Protein (6.3-8.2) g/dL Albumin (3.5-5.0) g/dL Amylase (30-110) U/L Lipase (23-300) U/L Blood Type Blood Type Confirm O Negative Blood Type Recheck Antibody Screen Spec Expiration Date 02/18/19 12:31 EKG performed at 1222 shows ventricular rate of 90 bpm. Pulse 172 ms. She hoahaoism 70 ms. QT QTc is 474/453 ms. Showing sinus bradycardia otherwise normal EKG. Disposition Clinical Impression: Dizziness, Panic attacks, Chronic back pain Disposition: HOME SELF-CARE Condition: Good Instructions (If sedation given, give patient instructions): Panic Disorder (ED) Additional Instructions: Patient advised to resume all normal medications. Rest, encourage hydration. Return to the emergency department if any alarming signs or symptoms occur. Is patient prescribed a controlled substance at d/c from ED?: No Referrals: Hernan Cruz MD [Primary Care Provider] - 1-2 days
[2019-02-18 13:08] LABS: Basophils % (A) 0 %; Eosinophils # (A) 0.3 k/uL (0-0.7); Eosinophils % (A) 4 %; HCT 31.8 % (34.0-46.0); HGB 10.3 gm/dL (11.4-16.0); Lymphocytes # (A) 1.4 k/uL (1.0-4.8); Lymphocytes % (A) 17 %; MCH 29.9 pg (25.0-35.0); MCHC 32.4 g/dL (31.0-37.0); MCV 92.4 fL (80.0-100.0); Mean Platelet Volume 7.3; Monocytes # (A) 0.2 k/uL (0-1.0); Monocytes % (A) 2 %; Neutrophils # (A) 6.1 k/uL (1.3-7.7); Neutrophils % (A) 75 %; Platelet Count 322 k/uL (150-450); RBC 3.44 m/uL (3.80-5.40); WBC 8.2 k/uL (3.8-10.6)
[2019-02-18 13:13] LABS: Albumin 3.9 g/dL (3.5-5.0); Calcium 8.3 mg/dL (8.4-10.2); Magnesium 2.3 mg/dL (1.6-2.3); Total Bilirubin 0.2 mg/dL (0.2-1.3); Total Protein 6.9 g/dL (6.3-8.2)
[2019-02-18 13:17] LABS: INR 0.9 (<1.2); Partial Thromboplastin Time 24.5 sec (22.0-30.0); Prothrombin Time 9.5 sec (9.0-12.0)
[2019-02-18] MEDS ORDERED: ONDANSETRON 4 MG/2 ML VIAL IVP STA (13:28)
--- NOTE | 2019-02-18 13:59 | XR ---
EXAMINATION TYPE: XR lumbar spine 2 or 3V , 3 VIEWS DATE OF EXAM ORDERED: 02/18/2019 HISTORY: Low back pain. COMPARISON: Previous study dated 04/23/2017. FINDINGS: There is a moderate dextroscoliosis. Vertebral body height and alignment are maintained. No fractures are seen. There is no spondylolysis or spondylolisthesis. The pedicles are intact. IMPRESSION: 1. NO ACUTE OSSEOUS LESION. 2. DEXTROSCOLIOSIS.
--- NOTE | 2019-02-18 14:00 | XR ---
EXAMINATION TYPE: XR chest 2V DATE OF EXAM: 02/18/2019 HISTORY: Chest Pain. REFERENCE: Previous study dated 12/19/2018. FINDINGS: The heart is mildly prominent. The lungs are clear. Pleural spaces are clear. IMPRESSION: MILD CARDIOMEGALY.
[2019-02-18] MEDS ORDERED: MORPHINE SULFATE 4 MG/ML SYRINGE IVP STA (15:00)
[2019-02-18] MEDS ORDERED: MECLIZINE 12.5 MG TAB PO STA (15:06)
[2019-02-18 16:09] VITALS: BP 120/78; PULSE 53; RESP 16; TEMP 98.6
== END 2019-02-18 16:09 | disposition home or self-care (01) ==
LOC: EC 11:39
DX: F41.0 Panic disorder [episodic paroxysmal anxiety] (principal); G89.29 Other chronic pain; M54.5 Low back pain; R42 Dizziness and giddiness; C50.919 Malignant neoplasm of unspecified site of unspecified female breast; J45.909 Unspecified asthma, uncomplicated; I10 Essential (primary) hypertension; E78.5 Hyperlipidemia, unspecified; K21.9 Gastro-esophageal reflux disease without esophagitis; F41.9 Anxiety disorder, unspecified; F32.9 Major depressive disorder, single episode, unspecified; E07.9 Disorder of thyroid, unspecified; Z79.82 Long term (current) use of aspirin; Z79.890 Hormone replacement therapy; Z79.899 Other long term (current) drug therapy; Z87.891 Personal history of nicotine dependence; Z86.73 Personal history of transient ischemic attack (TIA), and cerebral infarction without residual deficits; Z96.653 Presence of artificial knee joint, bilateral
CPT/HCPCS: 96374; 96375; 96361 ×2; 36415; 93005; 86900; 86901; 83880; 80053; 82150; 83690; 83735; 84484; 85025; 85610; 85730; 86850; 72100; 71046; 99285; J2270; J2405